=== PATIENT | female | born 1970 ===

== ENCOUNTER 2022-02-18 07:54 | Outpatient (REF) | payer OTHER, SELFPAY ==
[2022-02-18 11:33] LABS: Hematocrit 45.7 % (37.0-47.0); Hemoglobin 14.9 g/dl (12.0-16.0); Mean Corpuscular HGB Conc 32.6 g/dl (31.0-35.0); Mean Corpuscular Hemoglobin 31.3 pg (27.0-33.0); Platelet Count 318 X10*3/uL (160-400); Red Blood Count 4.76 X10*6/uL (4.20-5.50); Red Cell Distribution Width 13.7 % (11.0-16.0)
[2022-02-18 11:56] LABS: Alanine Aminotransferase 16 U/L (0-31); Albumin Level 4.2 g/dL (3.5-5.0); Alkaline Phosphatase 121 U/L (39-117); Anion Gap 15 (12-20); Aspartate Amino Transferase 12 U/L (5-31); Bilirubin Total 0.6 mg/dL (0.0-1.0); Blood Urea Nitrogen 13 mg/dL (9-16); Calcium 9.5 mg/dL (8.4-10.2); Carbon Dioxide 24 mmol/L (22-29); Chloride 107 mmol/L (96-108); Cholesterol 272 mg/dL; Estimated Glomerular Filt Rate > 60; Glucose Fasting 124 mg/dL (60-99); HDL Cholesterol 38 mg/dL; LDL Cholesterol Calculated 209 mg/dl; Potassium 4.8 mmol/L (3.3-5.1); Sodium 141 mmol/L (135-145); Total Protein 7.1 g/dL (6.5-8.0); Triglycerides 126 mg/dL
[2022-02-18 12:10] LABS: TSH reflex Free T4 1.22 uIU/mL (0.32-4.0)
== END 2022-02-18 07:55 | disposition home or self-care (01) ==
LOC: HO.WFDLDS 07:54
PROVIDERS: Visit Provider Hospitalist
DX: Z00.00 Encounter for general adult medical examination without abnormal findings (principal)
CPT/HCPCS: 36415; 80053; 80061; 84443; 85027

== ENCOUNTER 2022-07-31 07:50 | Outpatient (REF) | payer OTHER, SELFPAY ==
[2022-07-31 12:41] LABS: Cholesterol 203 mg/dL; HDL Cholesterol 39 mg/dL; LDL Cholesterol Calculated 140 mg/dl; Triglycerides 124 mg/dL
== END 2022-07-31 07:51 | disposition home or self-care (01) ==
LOC: HO.WFDLDS 07:50
PROVIDERS: Visit Provider Nurse Practitioner Family
DX: E78.00 Pure hypercholesterolemia, unspecified (principal)
CPT/HCPCS: 36415; 80061

== ENCOUNTER 2022-10-12 | Outpatient (REF) | payer OTHER, SELFPAY ==
[2022-10-12 12:13] LABS: Hematocrit 49.8 % (37.0-47.0); Mean Corpuscular HGB Conc 32.1 g/dl (31.0-35.0); Mean Corpuscular Hemoglobin 32.4 pg (27.0-33.0); Mean Corpuscular Volume 100.8 fL (80.0-98.0); Mean Platelet Volume 12.4 fL (9.4-12.3); Platelet Count 180 X10*3/uL (160-400); Red Blood Count 4.94 X10*6/uL (4.20-5.50); Red Cell Distribution Width 14.7 % (11.0-16.0); White Blood Count 11.1 X10*3/uL (4.8-10.8)
[2022-10-12 12:41] LABS: Glucose Fasting 122 mg/dL (60-99)
== END 2022-10-12 00:01 | disposition home or self-care (01) ==
LOC: HO.WFDLDS
PROVIDERS: Hospitalist; Visit Provider Nurse Practitioner Family
DX: D72.829 Elevated white blood cell count, unspecified (principal); R73.01 Impaired fasting glucose
CPT/HCPCS: 36415; 82947; 85027

== ENCOUNTER 2022-11-24 12:41 | Outpatient (AMB) | payer OTHER, SELFPAY ==
[2022-11-24 12:42] VITALS: BP 126/78; PULSE 89; O2SAT 97; BMI 33.6
--- NOTE | 2022-11-24 12:42 | A.OFFPC_ITS ---
Vital Signs 11/24/22 12:42 Height 5 ft 6 in Weight 208 lb BMI 33.6 BP 126/78 Blood Pressure Location Lt brachial Position Sitting Pulse 89 Pulse Source Pulse Oximeter Pulse Oximetry (%) 97 Oxygen Delivery Method Room Air Intake Visit Reasons: 1 mos health maintenance Intake Note: Patient is here for follow up appointment. She states follow up on labs and bronchtits. Post menopausal: Yes Allergies codeine Allergy (Mild, Verified 11/24/22 13:01) Agitated Medication List - Last Reconciled 11/24/22 by Leonel James CNP bupropion HCl (Wellbutrin SR) 150 mg PO QAM 90 days pravastatin 40 mg PO BEDTIME Tobacco use date assessed: 11/24/22 Dental Screening Dental Screen Date: 11/24/22 Did you have a dental visit in the last 12 months?: No Did you have a dental problem in the last 6 months where you did not have access to dental care?: No Was dental information given to patient?: Patient declined HPI HPI Comments History of Present Illness Details 52-year-old female presents for health maintenance follow-up She has h/o anxiety and depression. She is on Welbutrin which she notes she has been taking as prescribed She notes she established with a therapist, she started telemedicine meetings once a week for 1 month, and has transitioned to every two weeks. She notes that her anxiety and depression symptoms are currently controlled. She notes her last mammogram was a few years ago: normal. She has a mammogram She states she has never had a colonoscopy She notes her last pap smear test was 5 years ago: normal She states she has never received the shingles vaccines [facility] Medical History Eczema Gallbladder anomaly Skin cancer (melanoma) Family History Father Heart disease Hypertension Hyperlipemia No family history of mental disorder Maternal Grandmother No family history of mental disorder Pancreatic abnormality Social History Housing: House Patient Tobacco Use Status: Current everyday Tobacco user Tobacco use type: Cigarette Years Smoked: 30 years e-Cigarette/Vaping Use: Never Used service: No 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 1. Little interest or pleasure in doing things: not at all 2. Feeling down, depressed, or hopeless: not at all 3. Trouble falling or staying asleep, or sleeping too much: not at all 4. Feeling tired or having little energy: not at all 5. Poor appetite or overeating: not at all 6. Feeling bad about yourself - or that you are a failure or have let yourself or your family down: not at all 7. Trouble concentrating on things, such as reading the newspaper or watching television: not at all 8. Moving or speaking so slowly that other people could have noticed. Or the opposite - being so fidgety or restless that you have been moving around a lot more than usual: not at all 9. Thoughts that you would be better off or of hurting yourself in some way: not at all Total score: 0 Depression Screening Interpretation: Negative Source: Developed by Drs. Ponce Morejon, Lia Pathak, Lalito Vasquez and colleagues, with an educational yaritza from [employer] Thrive Questionnaire Date Thrive assessed: 05/19/22 YOLANDA-7 AMB Questionnaire YOLANDA-7 Date YOLANDA - 7 assessed: 09/11/22 Feeling nervous, anxious, or on edge: 1 = Several days Not being able to stop or control worryin = Several days Worrying too much about different things: 0 = Not at all Trouble relaxin = Not at all Being so restless that it is hard to sit still: 0 = Not at all Becoming easily annoyed or irritable: 1 = Several days Feeling afraid as if something awful might happen: 0 = Not at all Total YOLANDA-7 score (0-4 normal; 5-9 mild; 10-14 moderate; 15-21 severe): 3 Source: Developed by Drs. Ponce Morejon, Lalito Gilbert and colleagues, with an educational yaritza from [employer] Review of Systems Const Details: Const Denies chills, Denies fatigue, Denies fever(s), Denies headache(s) and Denies weakness ENT Denies dizziness and Denies headache(s) Card Denies chest pain, Denies lightheadedness, Denies dyspnea and Denies other (Palpitations) Resp Denies cough, Denies dyspnea, Denies wheezing and Denies other ( shortness of breath) GI Denies abdominal pain, Denies melena, Denies hematochezia, Denies change in bowel habits, Denies dyspepsia and Denies nausea Denies hematuria and Denies dysuria Musc Denies abnormal gait, Denies myalgias, Denies arthralgias, Denies numbness and Denies tingling Skin/Breast Denies rash, Denies unusual bruising and Denies wounds Neuro Denies abnormal gait, Denies dizziness, Denies headache(s), Denies memory loss, Denies numbness, Denies Sensory deficit (Neuro), Denies tingling and Denies weakness Psych Denies anxiety, Denies depression, Denies memory loss Endo Denies cold intolerance, Denies fatigue, Denies heat intolerance, Denies polydipsia and Denies polyuria Aller/Immun Denies wheezing Physical exam (Primary Care) Vital Signs: Last Vital Signs Pulse 89 11/24/22 12:42 BP 126/78 11/24/22 12:42 Pulse Ox 97 11/24/22 12:42 Oxygen Delivery Method Room Air 11/24/22 12:42 BMI result Body Mass Index 33.6 Tobacco/Smoking Status: Tobacco use Status Tobacco use date assessed 11/24/22 11/24/22 12:53 Patient Tobacco Use Status Current everyday Tobacco 11/24/22 12:44 Tobacco use type Cigarette 11/24/22 12:44 e-Cigarette/Vaping Use Never Used 11/24/22 12:44 PHQ-9: PHQ-9 Score PHQ-9: Total score 0 11/24/22 13:02 Depression Screening Interpretation: Negative Thrive Assessment: Date of Thrive Assessment Date Thrive assessed 05/19/22 11/24/22 12:44 Const Other: General: no acute distress and well developed Nutritional Appearance: well nourished Orientation/consciousness: patient oriented x3 HENMT Head: Yes normocephalic and Yes atraumatic Eyes General: appearance normal, both eyes and all related structures Pupils: Equal, round and reactive pupils present EOM: EOMs intact bilaterally Resp Effort & Inspection: normal respiratory effort Auscultation: clear to auscultation bilaterally Cardio Rate: regular rate Rhythm: regular rhythm Heart sounds: S1 normal heart sound present, S2 normal heart sound present, no gallops, no murmurs and no rubs GI Palpation (GI): No Abdominal aortic bruit present, Soft to palpation, nontender, No hepatosplenomegaly present and No Rebound tenderness present Auscultation: normal bowel sounds General: Yes no CVA tenderness Back/Spine/Pelvis Back: no CVA tenderness Cervical Spine: cervical ROM normal and No Cervical spine tenderness Thoracic/Lumbar Spine: thoraco-lumbar ROM normal, No pain with thoraco-lumbar ROM, No thoracic spinal tenderness and No lumbar spinal tenderness Extrem General: Yes normal to inspection, No edema and No calf tenderness Skin General: warm and dry. Normal skin color. Normal skin turgor Lesions: no lesions Rashes: no rashes Trauma: no lacerations or abrasions Wounds: no wounds Nails: normal Neuro General: patient oriented x3, gait normal and no focal neuro deficit Cranial nerves: Yes Equal, round and reactive pupils present Cognition (Neuro): normal cognition Gait exam (Neuro): Normal gait present Sensory Exam: No Sensory deficit (Neuro) Psych Appearance: grossly normal Affect: normal affect Attitude: cooperative Thought process: Normal thought process present Results AMB Hemoglobin A1c AMB Hemoglobin A1c 6.3 % Last Edit by Niya Carpio MA on 11/24/22 13:57 Results Reviewed Results Reviewed: Laboratory Last Values Hgb A1c (Clinic) 6.3 % (4.0-6.0) H 11/24/22 13:55 Assessment and Plan Assessment & Plan (1) Anxiety with depression: Code(s): F41.8 - Other specified anxiety disorders Plan: PHQ-9 and YOLANDA-7 scores are normal Continue take Wellbutrin as prescribed Continue to follow up with therapist as planned Routine exercise encouraged Follow-up in 3 months for anxiety, depression, and complete physical exam Verbalized understanding and agreed with treatment plan (2) Pre-diabetes: Code(s): R73.03 - Prediabetes Plan: Recent lab results reviewed with the patient. Recent fasting glucose is elevated and has been elevated in past. A1c today is 6.3% Healthy diet and routine exercise encouraged Dietitian/nutrition referral made Advised to get A1c blood work done before her next visit Follow-up in 3 months or return sooner with concerns or symptoms Verbalized understanding and agreed with treatment plan. (3) Hypercholesterolemia: Code(s): E78.00 - Pure hypercholesterolemia, unspecified Plan: Lipid levels have significantly improved Continue to take pravastatin as prescribed Limits foods high in saturated fat and avoid foods high trans fat Dietitian/nutrition referral made Routine exercise encouraged LP ordered. Advised to fast for at least 10-12 hours and get blood work done before next visit Verbalized understanding and agreed with treatment plan. (4) Screening for breast cancer: Code(s): Z12.39 - Encounter for other screening for malignant neoplasm of breast Plan: She notes her last mammogram was a few years ago: normal. She has a mammogram Advised to obtain contact information from the office to contact radiology to schedule her mammogram Verbalized understanding and agreed with the plan. (5) Colon cancer screening: Code(s): Z12.11 - Encounter for screening for malignant neoplasm of colon Plan: She states she has never had a colonoscopy Referred to Gastroenterology (6) Pap smear for cervical cancer screening: Code(s): Z12.4 - Encounter for screening for malignant neoplasm of cervix Plan: She notes her last pap smear test was 5 years ago: normal Gynecology referral made (7) Vaccine counseling: Code(s): Z71.85 - Encounter for immunization safety counseling Plan: She states she has never received the shingles vaccines Instructed on the importance of vaccination and encouraged to get the Shingrix vaccines Verbalized understanding and agreed with the plan. Orders: Orders Hemoglobin A1c 3 Months R73.03 - Prediabetes Lipid Panel Today E78.00 - Pure hypercholesterolemia, unspecified AMB Hemoglobin A1c Today Z13.9 - Encounter for screening, unspecified AMB Hemoglobin A1c 3 Months Z13.9 - Encounter for screening, unspecified Referrals Gastroenterology Referral Z12.11 - Encounter for screening for malignant neoplasm of colon [employer] Referral Z12.4 - Encounter for screening for malignant neoplasm of cervix Nutrition/Dietitian Referral E78.00 - Pure hypercholesterolemia, unspecified, R73.03 - Prediabetes Coding Level of Care Code Est Pt Level 4 (65818) Diagnoses Anxiety with depression F41.8 Pre-diabetes R73.03 Hypercholesterolemia E78.00 Screening for breast cancer Z12.39 Colon cancer screening Z12.11 Pap smear for cervical cancer screening Z12.4 Vaccine counseling Z71.85
== END 2022-11-24 13:41 | disposition home or self-care (01) ==
PROVIDERS: PCP Nurse Practitioner Family; Visit Provider Nurse Practitioner Family
DX: F41.8 Other specified anxiety disorders (principal); R73.03 Prediabetes; E78.00 Pure hypercholesterolemia, unspecified; Z12.39 Encounter for other screening for malignant neoplasm of breast; Z71.85 Encounter for immunization safety counseling
CPT/HCPCS: 83036; 99214

== ENCOUNTER 2023-01-12 07:50 | Outpatient (AMB) | payer OTHER, SELFPAY ==
[2023-01-12 07:52] VITALS: BP 124/76; BMI 32.9
--- NOTE | 2023-01-12 07:52 | MHC.OFFVIS ---
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 No complaints. Last Pap/HPV was few years ago, reports not available Last Mammogram was 2 weeks ago and [facility], report not available, the patient stated that the results were negative No previous screening Colonoscopy, the patient scheduled for an appointment with GI in 2 weeks ON LICENSE OF [facility] Medical History Gallbladder anomaly Skin cancer (melanoma) Eczema Surgical History Hx of dilation and curettage Hx of cholecystectomy Hx of section H/O hand surgery Family History Father Heart disease Hypertension Hyperlipemia No family history of mental disorder Maternal Grandmother No family history of mental disorder Pancreatic abnormality Social History Household Members: Spouse Housing: House Alcohol intake: current Alcohol intake frequency: holidays/special occasions only Patient Tobacco Use Status: Current everyday Tobacco user Tobacco use type: Cigarette Cigarettes Per Day: 20 Years Smoked: 30 years e-Cigarette/Vaping Use: Never Used service: No 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 Sexually active: Yes Sexual orientation: Straight/Heterosexual Gender identity: Female Cognitive needs: No Hearing needs: No Vision needs: No Female Reproductive History Menstrual Total pregnancies: 3 Full term: 3 Number of Living Children: 3 Review of Systems Const All systems reviewed & are unremarkable except as noted in HPI and below Card Reports as per HPI Resp Reports as per HPI GI Reports as per HPI and Reports no additional complaints Reports as per HPI Physical Exam Vital Signs: Last Vital Signs BP 124/76 01/12/23 07:52 BMI result Body Mass Index 32.9 Const General: cooperative, healthy appearing and comfortable Chest Chest palpation & inspection: normal inspection of the chest and normal palpation of entire chest wall Breast/axilla inspection: normal inspection of the breasts and normal inspection of the axillae Breast/axilla palpation: normal palpation of the breasts, normal palpation of the axillae and no axillary lymphadenopathy Resp Effort & Inspection: normal respiratory effort Auscultation: clear to auscultation bilaterally Percussion: percussion normal Cardio Palpation: normal PMI Rate: regular rate Rhythm: regular rhythm Heart sounds: no murmurs and no rubs Peripheral pulses: Peripheral pulses 2+ throughout GI Inspection: Yes normal to inspection Palpation (GI): Soft to palpation, nontender, no guarding, not rigid and No hepatosplenomegaly present Percussion: Yes normal to percussion Auscultation: normal bowel sounds Rectal Exam - Female: deferred General: Yes bladder normal to palpation External Female Exam: No lesion Speculum Exam - Vagina: normal appearance of the vagina, normal palpation, normal vaginal discharge and not erythematous Speculum Exam - Cervix: normal appearance of the cervix and normal palpation Bimanual exam- vagina & uterus: normal bimanual exam, normal palpation, bladder normal to palpation, consistency normal, normal palpation and enlarged Bimanual Exam- Adnexa, other: normal adnexae, no masses and no tenderness Assessment & Plan Assessment & Plan (1) Well woman exam: Code(s): Z01.419 - Encounter for gynecological examination (general) (routine) without abnormal findings Plan: Co testing done. Counseled the patient about the recommended dietary allowance of 1200 mg of Calcium & 600 IU of vitamin D. Instruction given to the patient to schedule next screening Mammogram in 01/19. The patient is scheduled with GI for screening colonoscopy in 2 week. The patient was instructed to perform monthly self-breast exams and schedule annual exam in a year. All questions answered and the patient verbalized understanding. (2) Enlarged uterus: Comment: History of myomatous uterus Code(s): N85.2 - Hypertrophy of uterus Plan: Will order pelvic ultrasound, request previous ultrasound done at [facility] to compare post ultrasounds. instructions given the patient to schedule a 2 week follow-up appointment. Orders: Orders US pelvic and transvaginal Today N85.2 - Hypertrophy of uterus Coding Level of Care Code New Pt Prev Care 40-64y(34830) Diagnoses Well woman exam Z01.419 Enlarged uterus N85.2
== END 2023-01-12 08:17 | disposition home or self-care (01) ==
PROVIDERS: PCP Nurse Practitioner Family; Visit Provider Obstetrics & Gynecology
DX: Z01.419 Encounter for gynecological examination (general) (routine) without abnormal findings (principal); N85.2 Hypertrophy of uterus
CPT/HCPCS: 99386

== ENCOUNTER 2023-01-12 07:50 | Outpatient (REF) | payer OTHER, SELFPAY ==
[2023-01-14 04:18] LABS: HPV mRNA E6/E7 rflx Not Detected (Not Detected)
== END 2023-01-12 07:51 | disposition home or self-care (01) ==
LOC: HO.LNP 07:50
PROVIDERS: PCP Nurse Practitioner Family; Visit Provider Obstetrics & Gynecology
DX: Z01.419 Encounter for gynecological examination (general) (routine) without abnormal findings (principal); N85.2 Hypertrophy of uterus; Z11.51 Encounter for screening for human papillomavirus (HPV)
CPT/HCPCS: 87624; 88142; 99386

== ENCOUNTER 2023-01-27 08:37 | Outpatient (AMB) | payer OTHER, SELFPAY ==
--- NOTE | 2023-01-27 08:27 | MHC.OFFVIS ---
Intake Vital Signs 01/27/23 08:40 Height 5 ft 6 in Weight 208 lb 8.917 oz BMI 33.7 BP 147/75 H Blood Pressure Location Lt brachial Position Sitting Pulse 92 Intake Visit Reasons: Colonoscopy Screening Intake Note: Patient presents to in office visit today as a new patient for colonoscopy screening. CC: Patient reports she has never had a colonoscopy done before. Denies having any GI symptom or concerns today. Hand Drawer In Helper Required: No Accompanied by: Self / Same As Patient Allergies codeine Allergy (Mild, Verified 02/24/23 10:25) Agitated HPI Colonoscopy Screening HPI Details 52-year-old female here for preprocedural meeting to discuss a screening colonoscopy. She is [place] Leonel [place] [facility]. 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 She has occasional CIC and RB from known hemorrhoids, and she denies any upper GI problems. There are no prior problems with anesthesia or sedation. She denies any cardiac or respiratory problems. No ID problems. There is no known FHX of CRC or polyps. [facility] Medical History Gallbladder anomaly Skin cancer (melanoma) Eczema Surgical History Hx of dilation and curettage Hx of cholecystectomy Hx of section H/O hand surgery Family History Father Heart disease Hypertension Hyperlipemia No family history of mental disorder Maternal Grandmother No family history of mental disorder Pancreatic cancer Social History Household Members: Spouse Housing: House Alcohol intake: current Alcohol intake frequency: holidays/special occasions only Patient Tobacco Use Status: Current everyday Tobacco user Tobacco use type: Cigarette Cigarette Packs Per Day: 1 Cigarettes Per Day: 20 Years Smoked: 30 years e-Cigarette/Vaping Use: Never Used service: No 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 Sexual orientation: Straight/Heterosexual Gender identity: Female Cognitive needs: No Hearing needs: No Vision needs: No Review of Systems Const Denies fatigue, Denies fever(s), Denies night sweats, Denies poor appetite and Denies weight loss ENT Reports Normal hearing present, Denies dysphagia, Denies odynophagia, Denies throat swelling and Denies tongue swelling Card Reports no additional complaints Resp Reports no additional complaints GI Denies abdominal pain, Denies melena, Denies bloating, Reports hematochezia, Reports constipation, Denies GI cramping, Denies dysphagia, Denies excessive flatus, Denies early satiety, Denies heartburn, Denies diarrhea, Denies nausea, Denies odynophagia, Denies vomiting and Denies hematemesis Skin/Breast Denies pruritus, Denies lesions, Denies rash and Denies jaundice Neuro Reports Normal hearing present and Denies Abnormal speech present Endo Denies fatigue Aller/Immun Denies throat swelling and Denies tongue swelling Physical Exam Vital Signs: Last Vital Signs Pulse 92 01/27/23 08:40 BP 147/75 H 01/27/23 08:40 BMI result Body Mass Index 33.7 Const General: cooperative, no acute distress, well developed and well groomed Nutritional Appearance: well nourished and obese Orientation/consciousness: oriented to person, oriented to place and oriented to time Limitations: No language barrier HEENT Head: Yes normocephalic and Yes atraumatic Eyes General: appearance normal, both eyes and all related structures Pupils: Equal, round and reactive pupils present Neck Neck: Yes normal visual inspection and Yes no lymphadenopathy Thyroid: Thyroid normal Resp Effort & Inspection: normal respiratory effort and able to speak in complete sentences Auscultation: clear to auscultation bilaterally Cardio Rate: regular rate Rhythm: regular rhythm Heart sounds: Normal, physiologic split S2 sound present Peripheral pulses: radial pulses present and posterior tibial pulses present GI Inspection: No distended, Yes Abdominal panniculus present, Yes obesity, Yes scar and Yes striae Palpation (GI): Soft to palpation, nontender, no guarding, not rigid and No hepatosplenomegaly present Percussion: Yes normal to percussion Auscultation: normal bowel sounds Rectal Exam - Female: deferred Abdomen image: 1. surgical scars 2. Skin General skin exam: no rashes or lesions noted, turgor normal, skin not dry, no jaundice, No spider nevi and no striae Rashes: no rashes Nails: normal Neuro General: oriented to person, oriented to place and oriented to time Cranial nerves: Yes Equal, round and reactive pupils present and Yes Normal hearing present Speech: No Abnormal speech present Extrem Other: skin graft right LE General: Yes normal to inspection, No clubbing, No cyanosis and No edema Psych Appearance: grossly normal and well kempt Mental Status: mental status grossly normal Speech and movement: Normal speech and movement present Affect: normal affect Attitude: cooperative Thought process: Normal thought process present and not confabulating Thought content: Normal thought content present Insight: Fair insight present (Psych) Judgement: Fair judgement present (Psych) Assessment & Plan Assessment & Plan (1) Pre-op examination: Code(s): Z01.818 - Encounter for other preprocedural examination Plan: This is her first colonoscopy. She has occasional CIC and RB from known hemorrhoids, and she denies any upper GI problems. There are no prior problems with anesthesia or sedation. She denies any cardiac or respiratory problems. No ID problems. There is no known FHX of CRC or polyps. Orders: Orders Colonoscopy - GI Use Only 01/27/23 Z01.818 - Encounter for other preprocedural examination Medications: New peg 3350-electrolytes 236-22.74-6.74 -5.86 gram (Golytely) until fecal effluent is clear; do not exceed a total volume of 2,000 mL 240 mL PO Q10M 4,000 mL 0RF 1 day Z12.11 - Encounter for screening for malignant neoplasm of colon Coding Level of Care Code New Pt Level 3 (16964) Diagnoses Pre-op examination Z01.818
[2023-01-27 08:40] VITALS: BP 147/75; PULSE 92; BMI 33.7
== END 2023-01-27 09:05 | disposition home or self-care (01) ==
PROVIDERS: PCP Internal Medicine; Visit Provider Nurse Practitioner
DX: Z01.818 Encounter for other preprocedural examination (principal)
CPT/HCPCS: 99203

== ENCOUNTER → 2023-01-27 08:37 | Outpatient (BNVA) | payer OTHER, SELFPAY | PROVIDERS: PCP Internal Medicine; Visit Provider Nurse Practitioner | DX: Z01.818 Encounter for other preprocedural examination (principal) | CPT/HCPCS: 99202 ==

== ENCOUNTER 2023-02-02 12:52 | Outpatient (REF) | payer OTHER, SELFPAY ==
--- NOTE | ~2023-02-02 | US_ITS ---
EXAMINATION: US PELVIS COMPLETE CLINICAL INFORMATION: Uterine hypertrophy COMPARISON: None TECHNIQUE: Transabdominal and transvaginal imaging was performed. FINDINGS: The uterus is of normal size and echogenicity measuring 8.0 x 4.7 x 5.2 cm. A regular homogeneous endometrium is identified measuring 0.4 cm. A 3.3 x 2.4 x 2.0 cm transmural myoma in the fundus with a possible submucosal component. A 3.5 x 4.2 x 3.4 cm hypoechoic solid structure in the right adnexa, unclear if this could reflect a pedunculated myoma or other primary adnexal lesion. Both ovaries are of normal size. The right measures 1.6 x 2.6 x 1.5 cm for a volume of 0.3 mL. The right ovary is remarkable for a 1.1 x 1.3 x 1.2 cm echogenic right ovarian lesion which given the presence of internal vascularity warrants further evaluation with contrast-enhanced MR pelvis. The left measures 1.9 x 2.9 x 1.6 cm for a volume of 3.5 mL and is unremarkable in appearance. There is no pelvic free fluid. US/US pelvic and transvaginal IMPRESSION: * A 4.2 cm hypoechoic solid structure in the right adnexa, unclear if this could reflect a pedunculated myoma or other primary adnexal lesion. Recommend further characterization with contrast-enhanced MR pelvis. * A 1.3 cm echogenic right ovarian lesion which given the presence of internal vascularity warrants further evaluation with contrast-enhanced MR pelvis. * A 3.3 cm transmural myoma in the fundus with a possible submucosal component. * Endometrium measures 4 mm in thickness.
== END 2023-02-02 12:53 | disposition home or self-care (01) ==
LOC: HO.US 12:52
PROVIDERS: PCP Nurse Practitioner Family; Visit Provider Obstetrics & Gynecology
DX: N85.2 Hypertrophy of uterus (principal)
CPT/HCPCS: 76830; 76856

== ENCOUNTER 2023-02-09 10:39 | Outpatient (AMB) | payer OTHER, SELFPAY ==
[2023-02-09 11:01] VITALS: BP 132/80; BMI 33.4
--- NOTE | 2023-02-09 11:01 | A.OFFVIS_ITS ---
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 Pelvic ultrasound done recently showed the following: The uterus is of normal size and echogenicity measuring 8.0 x 4.7 x 5.2 cm. A regular homogeneous endometrium is identified measuring 0.4 cm. A 3.3 x 2.4 x 2.0 cm transmural myoma in t he fundus with a possible submucosal component. A 3.5 x 4.2 x 3.4 cm hypoechoic solid structure in the right adnexa, unclear if this could reflect a pedunculated myoma or other primary adnexal lesion. Both ovaries are of normal size. The right measures 1.6 x 2.6 x 1.5 cm for a volume of 0.3 mL. The right ovary is remarkable for a 1.1 x 1.3 x 1.2 cm echogenic right ovarian lesion wh ich given the presence of internal vascularity warrants further evaluation with contrast-enhanced MR pelvis. The left measures 1.9 x 2.9 x 1.6 cm for a volume of 3.5 mL and is unremarkable in appearance. There is no pelvic free fluid PFSH Medical History Gallbladder anomaly Skin cancer (melanoma) Eczema Surgical History Hx of dilation and curettage Hx of cholecystectomy Hx of section H/O hand surgery Family History Father Heart disease Hypertension Hyperlipemia No family history of mental disorder Maternal Grandmother No family history of mental disorder Pancreatic cancer Social History Household Members: Spouse Housing: House Alcohol intake: current Alcohol intake frequency: holidays/special occasions only Patient Tobacco Use Status: Current everyday Tobacco user Tobacco use type: Cigarette Cigarettes Per Day: 20 Years Smoked: 30 years e-Cigarette/Vaping Use: Never Used service: No 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 Discussed with the patient risk of myosarcoma and symptoms that are caused by myomas including but not limited to pelvic pain, pressure symptoms, abnormal uterine bleeding. In addition discussed with the patient options of treatment for myomas including: Serial ultrasounds periodically to follow-up on the size of the myoma while targeting the treatment against fibroids related symptoms ( control pills, Mirena IUD, progesterone treatment, GnRH agonist/antagonist, uterine artery embolization or endometrial ablation) versus surgical treatment including hysterectomy a. All pros and cons, risks and benefits of all options were discussed with the patient. The patient understands that delay in surgical treatment in case of myosarcoma can affect her prognosis, after further discussion, the patient decided to think about it and get back to us next visit (2) Lesion of ovary: Code(s): N83.9 - Noninflammatory disorder of ovary, fallopian tube and broad ligament, unspecified Plan: Discussed with the patient the finding on ultrasound showing a 3.5 cm solid structure in the right adnexa, unclear if this could reflect a pedunculated myoma or other primary adnexal lesion, in addition to a 1.1 x 1.3 x1.2 cm echogenic right ovarian lesion which given the presence of internal vascularity. Discussed with patient potential differential diagnosis of the finding including but not limited to benign, malignant or premalignant ob/gyn nurse or non ob/gyn nurse conditions, in addition explained to the patient the limitation of ultrasound in order to differentiate between malignant and benign lesions. Will order pelvic MRI with and without contrast, check the results and treat accordingly. Instructed the patient to get the most recent mammogram results done a months ago at [facility] and the previous pelvic ultrasound 4 years ago done in outside facility to compare the findings specifically presence in the size of myomas . All questions answered, the patient verbalized understanding Orders: Orders MR pelvis wo/w con Today D25.9 - Leiomyoma of uterus, unspecified, N83.9 - Noninflammatory disorder of ovary, fallopian tube and broad ligament, unspecified Coding Level of Care Code Est Pt Level 3 (07325) Diagnoses Uterine myoma D25.9 Lesion of ovary N83.9
== END 2023-02-09 11:14 | disposition home or self-care (01) ==
LOC: HO.HWS 10:39
PROVIDERS: PCP Nurse Practitioner Family; Visit Provider Obstetrics & Gynecology
DX: D25.9 Leiomyoma of uterus, unspecified (principal); N83.9 Noninflammatory disorder of ovary, fallopian tube and broad ligament, unspecified
CPT/HCPCS: 99213

== ENCOUNTER → 2023-02-09 10:39 | Outpatient (BNVA) | payer OTHER, SELFPAY | PROVIDERS: PCP Nurse Practitioner Family; Visit Provider Obstetrics & Gynecology | DX: D25.9 Leiomyoma of uterus, unspecified (principal); N83.9 Noninflammatory disorder of ovary, fallopian tube and broad ligament, unspecified | CPT/HCPCS: 99212 ==

== ENCOUNTER 2023-02-24 09:58 | Outpatient (AMB) | payer OTHER, SELFPAY ==
--- NOTE | 2023-02-24 10:04 | MHC.PC.OV ---
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 Accompanied by: Self / Same As Patient Allergies codeine Allergy (Mild, Verified 02/24/23 10:25) Agitated Medication List - Last Reconciled 02/24/23 by Leonel James CNP bupropion HCl (Wellbutrin SR) 150 mg PO QAM 90 days pravastatin 40 mg PO BEDTIME Tobacco use date assessed: 11/24/22 Dental Screening Dental Screen Date: 02/24/23 Did you have a dental visit in the last 12 months?: No Did you have a dental problem in the last 6 months where you did not have access to dental care?: No Was dental information given to patient?: Yes HPI HPI Comments History of Present Illness Details 52-year-old female presents for pre diabetes, hypercholesterolemia, anxiety, and depression follow-up Her A1c in October was 6.3%. She was referred to powerhouse mechanic helper/dietitian Her lipid levels showed marked improvement in July; total cholesterol was 203, LDL was 140, HDL was 39 She admits to taking bupropion improve a statin as prescribed without adverse reactions She notes that she missed her powerhouse mechanic helper/dietitian appointment and has not rescheduled. She admits to maintaining a healthy diet and exercising on her home elliptical and bicycle 3 times weekly She offers no complaints and denies acute symptoms at this time [facility] Medical History Gallbladder anomaly Skin cancer (melanoma) Eczema Surgical History Hx of dilation and curettage Hx of cholecystectomy Hx of section H/O hand surgery Family History Father Heart disease Hypertension Hyperlipemia No family history of mental disorder Maternal Grandmother No family history of mental disorder Pancreatic cancer Social History Household Members: Spouse Housing: House Alcohol intake: current Alcohol intake frequency: holidays/special occasions only Patient Tobacco Use Status: Current everyday Tobacco user Tobacco use type: Cigarette Cigarette Packs Per Day: 1 Cigarettes Per Day: 20 Years Smoked: 30 years e-Cigarette/Vaping Use: Never Used service: No 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 1. Little interest or pleasure in doing things: more than half the days 2. Feeling down, depressed, or hopeless: not at all 3. Trouble falling or staying asleep, or sleeping too much: several days 4. Feeling tired or having little energy: not at all 5. Poor appetite or overeating: several days 6. Feeling bad about yourself - or that you are a failure or have let yourself or your family down: not at all 7. Trouble concentrating on things, such as reading the newspaper or watching television: not at all 8. Moving or speaking so slowly that other people could have noticed. Or the opposite - being so fidgety or restless that you have been moving around a lot more than usual: not at all 9. Thoughts that you would be better off or of hurting yourself in some way: not at all Total score: 4 Depression Screening Interpretation: Negative Depression Screening Done: Yes 26027 - PHQ-9 Billing: Yes Source: Developed by Drs. Ponce Morejon, Lia Pathak, Lalito Vasquez and colleagues, with an educational yaritza from [employer]. Thrive Questionnaire Date Thrive assessed: 05/19/22 YOLANDA-7 AMB Questionnaire YOLANDA-7 Date YOLANDA - 7 assessed: 02/24/23 Feeling nervous, anxious, or on edge: 1 = Several days Not being able to stop or control worryin = Several days Worrying too much about different things: 1 = Several days Trouble relaxin = Not at all Being so restless that it is hard to sit still: 0 = Not at all Becoming easily annoyed or irritable: 1 = Several days Feeling afraid as if something awful might happen: 1 = Several days Total YOLANDA-7 score (0-4 normal; 5-9 mild; 10-14 moderate; 15-21 severe): 5 Source: Developed by Drs. Ponce Morejon, Lia Pathak, Lalito Vasquez and colleagues, with an educational yaritza from [employer]. YOLANDA-7 Assessment Billing YOLANDA-7 Assessment Tool: YOLANDA-7 Assessment 72459 Review of Systems Const Details: Const Denies chills, Denies fatigue, Denies fever(s), Denies headache(s) and Denies weakness ENT Denies dizziness and Denies headache(s) Card Denies chest pain, Denies lightheadedness, Denies dyspnea and Denies other (Palpitations) Resp Denies cough, Denies dyspnea, Denies wheezing and Denies other ( shortness of breath) GI Denies abdominal pain, Denies melena, Denies hematochezia, Denies change in bowel habits, Denies dyspepsia and Denies nausea Denies hematuria and Denies dysuria Musc Denies abnormal gait, Denies myalgias, Denies arthralgias, Denies numbness and Denies tingling Skin/Breast Denies rash, Denies unusual bruising and Denies wounds Neuro Denies abnormal gait, Denies dizziness, Denies headache(s), Denies memory loss, Denies numbness, Denies Sensory deficit (Neuro), Denies tingling and Denies weakness Psych Denies anxiety, Denies depression, Denies memory loss Endo Denies cold intolerance, Denies fatigue, Denies heat intolerance, Denies polydipsia and Denies polyuria Aller/Immun Denies wheezing Physical exam (Primary Care) Vital Signs: Last Vital Signs Temp 97.4 F 02/24/23 10:06 Pulse 103 H 02/24/23 10:06 Resp 13 02/24/23 10:06 BP 124/76 02/24/23 10:06 Pulse Ox 98 02/24/23 10:06 Oxygen Delivery Method Room Air 02/24/23 10:06 BMI result Body Mass Index 33.6 Tobacco/Smoking Status: Tobacco use Status Tobacco use date assessed 11/24/22 02/24/23 10:06 Patient Tobacco Use Status Current everyday Tobacco 02/24/23 10:06 Tobacco use type Cigarette 02/24/23 10:06 e-Cigarette/Vaping Use Never Used 02/24/23 10:06 PHQ-9: PHQ-9 Score PHQ-9: Total score 4 02/24/23 10:14 Depression Screening Interpretation: Negative Thrive Assessment: Date of Thrive Assessment Date Thrive assessed 05/19/22 02/24/23 10:06 Const Other: General: no acute distress and well developed Nutritional Appearance: well nourished Orientation/consciousness: patient oriented x3 HENMT Head: Yes normocephalic and Yes atraumatic Eyes General: appearance normal, both eyes and all related structures Pupils: Equal, round and reactive pupils present EOM: EOMs intact bilaterally Resp Effort & Inspection: normal respiratory effort Auscultation: clear to auscultation bilaterally Cardio Rate: regular rate Rhythm: regular rhythm Heart sounds: S1 normal heart sound present, S2 normal heart sound present, no gallops, no murmurs and no rubs GI Palpation (GI): No Abdominal aortic bruit present, Soft to palpation, nontender, No hepatosplenomegaly present and No Rebound tenderness present Auscultation: normal bowel sounds General: Yes no CVA tenderness Back/Spine/Pelvis Back: no CVA tenderness Cervical Spine: cervical ROM normal and No Cervical spine tenderness Thoracic/Lumbar Spine: thoraco-lumbar ROM normal, No pain with thoraco-lumbar ROM, No thoracic spinal tenderness and No lumbar spinal tenderness Extrem General: Yes normal to inspection, No edema and No calf tenderness Skin General: warm and dry. Normal skin color. Normal skin turgor Lesions: no lesions Rashes: no rashes Trauma: no lacerations or abrasions Wounds: no wounds Nails: normal Neuro General: patient oriented x3, gait normal and no focal neuro deficit Cranial nerves: Yes Equal, round and reactive pupils present Cognition (Neuro): normal cognition Gait exam (Neuro): Normal gait present Sensory Exam: No Sensory deficit (Neuro) Psych Appearance: grossly normal Affect: normal affect Attitude: cooperative Thought process: Normal thought process present Results AMB Hemoglobin A1c AMB Hemoglobin A1c 6.2 % Last Edit by Niya Carpio MA on 02/24/23 10:33 Assessment and Plan Assessment & Plan (1) Pre-diabetes: Code(s): R73.03 - Prediabetes Plan: A1c 6.2% today, indicates prediabetes. Previous A1c was 6.3% Healthy diet and routine exercise encouraged Encourage to rescheduled with powerhouse mechanic helper/dietitian Will recheck A1c in 3 months Follow-up in 1 months for an extended physical exam. Will check CMP since her current CMP is over a year old Verbalized understanding and agreed with treatment plan (2) Hypercholesterolemia: Code(s): E78.00 - Pure hypercholesterolemia, unspecified Plan: Lipid levels showed marked improvement in July; total cholesterol was 203, LDL was 140, HDL was 39 She did not get fasting blood work done for repeat lipid panel Advised to get blood work done before next visit Continue current treatment regimen Verbalized understanding and agreed with treatment plan (3) Anxiety with depression: Code(s): F41.8 - Other specified anxiety disorders Plan: She reports controlled anxiety and depression symptoms YOLANDA-7 score revealed mild anxiety. PHQ-9 score is normal Continue current treatment regimen Return with worsening or new symptoms Verbalized understanding and agreed with treatment plan Orders: Orders Comprehensive Fred. Panel Fast Today Z00.00 - Encounter for general adult medical examination without abnormal findings Coding Level of Care Code Est Pt Level 3 (75109) Diagnoses Pre-diabetes R73.03 Hypercholesterolemia E78.00 Anxiety with depression F41.8 Additional Codes YOLANDA-7 Assessment Billing - YOLANDA-7 Assessment Tool: YOLANDA-7 Assessment 88470 ([id number])
[2023-02-24 10:06] VITALS: BP 124/76; PULSE 103; RESP 13; TEMP 36.3; O2SAT 98; BMI 33.6
== END 2023-02-24 10:43 | disposition home or self-care (01) ==
PROVIDERS: PCP Nurse Practitioner Family; Visit Provider Nurse Practitioner Family
DX: R73.03 Prediabetes (principal); E78.00 Pure hypercholesterolemia, unspecified; F41.8 Other specified anxiety disorders
CPT/HCPCS: 83036; 99213

== ENCOUNTER 2023-03-31 09:29 | Outpatient (REF) | payer OTHER, SELFPAY ==
--- NOTE | ~2023-03-31 | MR_ITS ---
EXAMINATION: MR PELVIS WITHOUT AND WITH CONTRAST CLINICAL INFORMATION: Right adnexal mass lesion, right ovarian echogenic lesion found on pelvic ultrasound examination COMPARISON: Ultrasound examination of pelvis on 02/02/2023 TECHNIQUE: Examination was performed in a high field strength MRI scanner. Pre-contrast multiplanar multisequence MR imaging of the pelvis was performed without IV contrast enhancement. Post-contrast axial T1 weighted fat suppressed images of the pelvis were obtained after IV injection of 10 mL Gadavist. FINDINGS: Uterus is anteverted with normal endometrial stripe. T2 hyperintense nabothian cysts are seen in the uterine cervix, measuring up to 0.8 cm in diameter. Right anterior uterine fundal T2 hypointense hypoenhancing leiomyoma is seen measuring 2.5 cm in AP diameter, 2.1 cm in width, 2.9 cm in vertical height. Bilateral ovaries are normal in size, without focal lesion. Right ovary contains several tiny normal follicles. No adnexal mass lesion could be identified. Urinary bladder is well filled with urine. Pelvic fat plane is clean. No pelvic ascites is seen. No abnormally enlarged iliac or inguinal lymph nodes are found. The pelvis and bilateral hips are intact. Bilateral femoral heads and necks show normal signal without focal lesion. No abnormal joint effusion can be seen. The visualized bony pelvis show normal signal. Bilateral sacroiliac joints also appear unremarkable. A T2 hyperintense lesion is seen in lateral left hepatic lobe possibly segment 3 measuring 2.0 x 1.6 cm in size. The lesion was not included in the [id number] on postcontrast images. MR/MR pelvis wo/w con IMPRESSION: 1. 2.9 cm right anterior uterine fundal leiomyoma. 2. Normal appearance of the right ovary. No adnexal mass lesion could be identified. 3. Incidental note is made of a 2 cm T2 hyperintense lesion in the lateral left hepatic lobe, possibly segment 3, incompletely characterized on this exam. This could be further evaluated with abdominal ultrasound.
== END 2023-03-31 09:30 | disposition home or self-care (01) ==
LOC: HO.MRI 09:29
PROVIDERS: PCP Nurse Practitioner Family; Visit Provider Obstetrics & Gynecology
DX: N83.9 Noninflammatory disorder of ovary, fallopian tube and broad ligament, unspecified (principal); D25.9 Leiomyoma of uterus, unspecified
CPT/HCPCS: 72197; A9585

== ENCOUNTER 2023-04-08 10:15 | Outpatient (AMB) | payer OTHER, SELFPAY ==
--- NOTE | 2023-04-08 10:21 | A.OFFVIS_ITS ---
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 Pelvic ultrasound on 02/18 showed the following: IMPRESSION: * A 4.2 cm hypoechoic solid structure in the right adnexa, unclear if this could reflect a pedunculated myoma or other primary adnexal lesion. Recommend further characterization with contrast-enhanced MR pelvis. * A 1.3 cm echogenic right ovarian lesion which given the presence of internal vascularity warrants further evaluation with contrast-enhanced MR pelvis. * A 3.3 cm transmural myoma in the fundus with a possible submucosal component. * Endometrium measures 4 mm in thickness. Pelvic MRI on 03/31/23 showed the followin. 2.9 cm right anterior uterine fundal leiomyoma. 2. Normal appearance of the right ovary . No adnexal mass lesion could be identified. 3. Incidental note is made of a 2 cm T2 hyperintense lesion in the lateral left hepatic lobe, possibly segment 3, incompletely characterized on this exam. This could be further evaluated with abdominal ultrasound. PFSH Medical History Gallbladder anomaly Skin cancer (melanoma) Eczema Surgical History Hx of dilation and curettage Hx of cholecystectomy Hx of section H/O hand surgery Family History Father Heart disease Hypertension Hyperlipemia No family history of mental disorder Maternal Grandmother No family history of mental disorder Pancreatic cancer Social History Household Members: Spouse Housing: House Alcohol intake: current Alcohol intake frequency: holidays/special occasions only Patient Tobacco Use Status: Current everyday Tobacco user Tobacco use type: Cigarette Cigarette Packs Per Day: 1 Cigarettes Per Day: 20 Years Smoked: 30 years e-Cigarette/Vaping Use: Never Used service: No 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 Sexual orientation: Straight/Heterosexual Gender identity: Female Cognitive needs: No Hearing needs: No Vision needs: No Review of Systems Const All systems reviewed & are unremarkable except as noted in HPI and below Reports as per HPI and Reports no additional complaints GI Reports no additional complaints Reports no additional complaints Assessment & Plan Assessment & Plan (1) Uterine myoma: Code(s): D25.9 - Leiomyoma of uterus, unspecified Plan: Discussed with the patient the findings on pelvic ultrasound & the risk of myosarcoma; discussed with the patient the options of treatment including expectant management versus hysterectomy; the pros and cons, risks benefits of each approach were discussed with the patient including the fact that in cases of myosarcoma, surgical treatment can lead to early diagnosis and positively affects the prognosis; after further discussion, the patient decided to proceed with expectant management. Will repeat pelvic ultrasound in 6 month. Instruc tions given to patient to call in case any of the following occurs: pressure symptoms, abnormal uterine bleeding, pelvic pain; and to schedule a future 6 my office follow-up appointment for follow-up pelvic ultrasound . All questions answered, the patient verbalized understanding and agreed with the plan . (2) Hepatic lesion: Code(s): K76.9 - Liver disease, unspecified Plan: Discussed the patient the finding on MRI showing hepatic lesion, recommended to the patient to contact her PCP for further management. Orders: Orders US pelvic and transvaginal 6 Months D25.9 - Leiomyoma of uterus, unspecified Coding Level of Care Code Est Pt Level 3 (87825) Diagnoses Uterine myoma D25.9 Hepatic lesion K76.9
[2023-04-08 10:23] VITALS: BP 124/82; BMI 33.4
== END 2023-04-08 10:36 | disposition home or self-care (01) ==
LOC: HO.HWS 10:15
PROVIDERS: PCP Nurse Practitioner Family; Visit Provider Obstetrics & Gynecology
DX: D25.9 Leiomyoma of uterus, unspecified (principal); K76.9 Liver disease, unspecified
CPT/HCPCS: 99213

== ENCOUNTER → 2023-04-08 10:15 | Outpatient (BNVA) | payer OTHER, SELFPAY | PROVIDERS: PCP Nurse Practitioner Family; Visit Provider Obstetrics & Gynecology | DX: K76.9 Liver disease, unspecified (principal); D25.9 Leiomyoma of uterus, unspecified | CPT/HCPCS: 99212 ==

== ENCOUNTER 2023-07-22 06:21 | Day surgery (SDC) | payer OTHER, SELFPAY ==
--- NOTE | 2023-07-21 09:55 | HO.ANESPROP2 ---
Documented by User: Rakel Peraza NP 07/21/23 09:55 HPI - Anesthesia Eval Consult details Narrative: 53yo F for Colonoscopy PMFSH Active Problems Active Problems: All Active Problems Hepatic lesion (Acute) Laboratory tests ordered as part of a complete physical exam (CPE) (Acute) Lesion of ovary (Acute) Uterine myoma (Acute) Pre-op examination (Acute) Enlarged uterus (Acute) Well woman exam (Acute) Pre-diabetes (Acute) Vaccine counseling (Acute) Pap smear for cervical cancer screening (Acute) Colon cancer screening (Acute) Wheezing (Acute) Bronchitis (Acute) Anxiety with depression (Acute) Elevated fasting glucose (Acute) Hypercholesterolemia (Acute) Right wrist pain (Acute) Leukocytosis (Acute) BMI 33.0-33.9,adult (Acute) Elevated BP without diagnosis of hypertension (Acute) Screening for breast cancer (Acute) History of skin cancer (Acute) Normal physical exam (Acute) Past Medical History Medical History Bronchitis Elevated cholesterol Anxiety with depression Pre-diabetes Gallbladder anomaly Skin cancer (melanoma) Eczema Family History Family History Father Heart disease Hypertension Hyperlipemia No family history of mental disorder Maternal Grandmother No family history of mental disorder Pancreatic cancer Surgical History Surgical History Hx of dilation and curettage Hx of cholecystectomy Hx of section H/O hand surgery Social History Social History Household Members: Spouse Housing: House Alcohol intake: current Alcohol intake frequency: does not drink Patient Tobacco Use Status: Former Tobacco user Tobacco use type: Cigarette Cigarette Packs Per Day: 1 Cigarettes Per Day: 20.0 Years Smoked: 30 e-Cigarette/Vaping Use: Never Used Use of substances other than those prescribed or required for medical reasons: Unknown Are you DNR?: No Advance Directives: No Advance Directives Information Provided: Yes Advance Directives on File: No Recently lost weight without trying: No service: No 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 Sexual orientation: Straight/Heterosexual Gender identity: Female Cognitive needs: No Hearing needs: No Vision needs: No Meds Allergies Allergy/AdvReac Type Severity Reaction Status Date / Time codeine Allergy Mild Agitated Verified 04/08/23 10:23 Exam Height,Weight and Vital Signs: Height 5 ft 6 in Assessment and Plan Assessment Anesthesia Assessment: Chart Reviewed Documented by User: Nathalia Mcintyre MD 07/22/23 07:47 PMFSH Past Medical History Medical History Bronchitis Elevated cholesterol Anxiety with depression Pre-diabetes Gallbladder anomaly Skin cancer (melanoma) Eczema Functional capacity: independent ambulation Family History Family History Father Heart disease Hypertension Hyperlipemia No family history of mental disorder Maternal Grandmother No family history of mental disorder Pancreatic cancer Family history of problems with anesthesia: No Surgical History Surgical History Hx of dilation and curettage Hx of cholecystectomy Hx of section H/O hand surgery History of Problems with Anesthesia: No Social History Social History Household Members: Spouse Housing: House Alcohol intake: current Alcohol intake frequency: does not drink Patient Tobacco Use Status: Former Tobacco user Tobacco use type: Cigarette Cigarette Packs Per Day: 1 Cigarettes Per Day: 20.0 Years Smoked: 30 e-Cigarette/Vaping Use: Never Used Use of substances other than those prescribed or required for medical reasons: Unknown Are you DNR?: No Advance Directives: No Advance Directives Information Provided: Yes Advance Directives on File: No Recently lost weight without trying: No service: No 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 Sexual orientation: Straight/Heterosexual Gender identity: Female Cognitive needs: No Hearing needs: No Vision needs: No Meds Allergies Allergy/AdvReac Type Severity Reaction Status Date / Time codeine Allergy Mild Agitated Verified 04/08/23 10:23 Exam Airway Mallampati Class: III TM Dist: >3cm Neck ROM: Full Heart: RRR Lungs: CTA Assessment and Plan Final Anesthetic Review Family History of Problems with Anesthesia: No History of Problems with Anesthesia: No ASA Class: III Final Preanesthetic Review: Meds/Allgs Chart Reviewed, Consent Obtained/Reviewed and Anes Risks/Benef Reviewed Patient Risk: Low Procedure Risk: Low Anesthetic Plan Anesthetic Plan: MAC: Disposition: Standard PACU
--- NOTE | 2023-07-22 06:17 | MHC.SHP ---
Pre-Procedural Eval Section A - 24 Hr Update-Section A only Date of Service: 07/22/23 Section B - Complete if H&P > 30 days Chief Complaint: Encounter for screening for malignant neoplasm of Relevant Family History (Specify if Yes): No Relevant Social History: Tobacco Use Present Medications: see Short Stay Collaborative assessment Medical History: Significant History (Bronchitis Elevated cholesterol Anxiety with depression Pre-diabetes Gallbladder anomaly Skin cancer (melanoma) Eczema) History of Previous Operations: Relevant previous surgery/procedure and date(s) ( Hx of dilation and curettage Hx of cholecystectomy Hx of section H/O hand surgery) Allergies: Allergies Allergy/AdvReac Type Severity Reaction Status Date / Time codeine Allergy Mild Agitated Verified 04/08/23 10:23 Review of Systems Sugical H&P ROS: Negative: Constitution, Cardiovascular, Respiratory, Neurological, Psychiatric, Hem-Onc, Allergic/Immunologic, Gastrointestinal, Genitourinary, Musculoskeletal, Integumentary, Endocrine and Eyes/Ears/Nose/Throat Exam Surgical H&P Exam: Normal: HEENT, Normal: Heart, Normal: Lungs, Normal: Extremities, Normal: Abdomen, Normal: Skin and Normal: Neurological Plan Diagnosis/Plan: Unchanged I have reviewed the history and physical and performed a pertinent physical examination on my patient. No changes have occurred unless specified. Time Spent With Patient Time: Total time managing care of this patient today ____ minutes.
[2023-07-22 06:41] VITALS: BP 166/71; PULSE 89; RESP 18; TEMP 36.6; O2SAT 97; BMI 35.2
[2023-07-22] MEDS: Lactated Ringers 1,000 ML 100 ML IVCONT (06:53)
--- NOTE | 2023-07-22 07:32 | W.PM.OPN ---
Operative Note Operative Note Date of Service: 07/22/23 Narrative: Operative Information Procedure Description: Colonoscopy Indication: screening Anesthesia: MAC COLONOSCOPY Instrument: Olympus variable stiffness pediatric scope 190L Colonoscopy Monitoring: Vital signs and clinical assessment, continuous EKG monitoring, Pulse oximetry, Carbon Dioxide monitoring and blood pressure monitoring were done throughout the procedure. Colon withdrawal time was 11 minutes. Procedure: The patient was placed in the left lateral decubitis position and pre-procedure medications were administered. After a digital rectal examination of the ano-rectum, the video colonoscope was inserted into the rectum and advanced through the colon to the cecum/TI. The colonoscope was slowly withdrawn in a retrograde panoramic fashion and the colon mucosa was carefully examined including a retroflexed view of the rectum. Findings and interventions are described below. Procedure Difficulty: moderate Findings: Terminal Ileum-not intubated Cecum: 4-6 mm sessile polyp removed with cold forceps Ascending Colon: normal Transverse Colon - 8-10 mm sessile polyp removed with cold snare Descending Colon:normal Sigmoid Colon: moderate diverticulosis, 5-7 mm sessile polyp removed with cold snare Rectum: Retroflexion with small internal hemorrhoids seen, grade I Anorectum - normal Intervention: cold snare, cold forceps Colon preparation: [place] Bowel Preparation Scale Right colon; 1-2 Transverse colon: 1-2 Left colon; 1-2 (0 = Unprepared colon segment with mucosa not seen due to solid stool that cannot be cleared. 1 = Portion of mucosa of the colon segment seen, but other areas of the colon segment not well seen due to staining, residual stool and/or opaque liquid. 2 = Minor amount of residual staining, small fragments of stool and/or opaque liquid, but mucosa of colon segment seen well. 3 = Entire mucosa of colon segment seen well with no residual staining, small fragments of stool or opaque liquid) Impression and Post Procedure Diagnosis: diverticulosis colon polyps internal hemorrhoids Plan: High fiber diet leaflet Avoid straining at stool, epsom salts and sitz bath, anusol supps or cream Repeat Colonoscopy in 1 year due to fair to poor prep in certain areas or earlier if clinically indicated Above findings were reviewed with the patient and relevant handouts were provided if indicated.
--- NOTE | 2023-07-22 07:47 | P.CONAN_ITS ---
[facility] Active Problems Active Problems: All Active Problems Hepatic lesion (Acute) Laboratory tests ordered as part of a complete physical exam (CPE) (Acute) Lesion of ovary (Acute) Uterine myoma (Acute) Pre-op examination (Acute) Enlarged uterus (Acute) Well woman exam (Acute) Pre-diabetes (Acute) Vaccine counseling (Acute) Pap smear for cervical cancer screening (Acute) Colon cancer screening (Acute) Wheezing (Acute) Bronchitis (Acute) Anxiety with depression (Acute) Elevated fasting glucose (Acute) Hypercholesterolemia (Acute) Right wrist pain (Acute) Leukocytosis (Acute) BMI 33.0-33.9,adult (Acute) Elevated BP without diagnosis of hypertension (Acute) Screening for breast cancer (Acute) History of skin cancer (Acute) Normal physical exam (Acute) Past Medical History Medical History Bronchitis Elevated cholesterol Anxiety with depression Pre-diabetes Gallbladder anomaly Skin cancer (melanoma) Eczema Functional capacity: independent ambulation Family History Family History Father Heart disease Hypertension Hyperlipemia No family history of mental disorder Maternal Grandmother No family history of mental disorder Pancreatic cancer Family history of problems with anesthesia: No Surgical History Surgical History Hx of dilation and curettage Hx of cholecystectomy Hx of section H/O hand surgery History of Problems with Anesthesia: No Social History Social History Household Members: Spouse Housing: House Alcohol intake: current Alcohol intake frequency: does not drink Patient Tobacco Use Status: Former Tobacco user Tobacco use type: Cigarette Cigarette Packs Per Day: 1 Cigarettes Per Day: 20.0 Years Smoked: 30 e-Cigarette/Vaping Use: Never Used Use of substances other than those prescribed or required for medical reasons: Unknown Are you DNR?: No Advance Directives: No Advance Directives Information Provided: Yes Advance Directives on File: No Recently lost weight without trying: No service: No 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 Sexual orientation: Straight/Heterosexual Gender identity: Female Cognitive needs: No Hearing needs: No Vision needs: No Meds Allergies Allergy/AdvReac Type Severity Reaction Status Date / Time codeine Allergy Mild Agitated Verified 04/08/23 10:23 Active Medications: Current Medications Lactated Ringer's (Lr) 1,000 mls @ 100 mls/hr IVCONT .Q10H PUNEET Last Admin: 07/22/23 06:53 Dose: 100 mls/hr Exam Height,Weight and Vital Signs: Height 5 ft 6 in Weight 98.883 kg Last Vital Signs Temp 98 F 07/22/23 06:41 Pulse 89 07/22/23 06:41 Resp 18 07/22/23 06:41 BP 166/71 H 07/22/23 06:41 Pulse Ox 97 07/22/23 06:41 O2 Del Method Room Air 07/22/23 06:41 Airway Mallampati Class: III TM Dist: >3cm Neck ROM: Full Heart: RRR Lungs: CTA Assessment and Plan Assessment Anesthesia Assessment: Anesthesia Plan Discussed Final Anesthetic Review Family History of Problems with Anesthesia: No History of Problems with Anesthesia: No ASA Class: II Final Preanesthetic Review: Meds/Allgs Chart Reviewed, Consent Obtained/Reviewed and Anes Risks/Benef Reviewed Patient Risk: Low Procedure Risk: Low Anesthetic Plan Anesthetic Plan: MAC: Disposition: Standard PACU
[2023-07-22 08:07] VITALS: BP 132/61; PULSE 80; RESP 16; TEMP 36.1; O2SAT 97
[2023-07-22 08:27] VITALS: BP 146/72; PULSE 74; RESP 20; TEMP 36.6; O2SAT 99
--- NOTE | 2023-07-22 10:30 | HO.POSTANES ---
Post Anesthesia Evaluation Post Anesthesia Evaluation Date of Service: 07/22/23 Vital Signs: Vital Signs Temp Pulse Resp BP Pulse Ox O2 Del Method 07/22/23 08:27 97.8 F 74 20 146/72 H 99 Room Air 07/22/23 08:07 97 F 80 16 132/61 97 Room Air 07/22/23 06:41 98 F 89 18 166/71 H 97 Room Air Anesthesia: Monitored Mental Status: Awake Pain Control: Satisfactory Nausea/Vomiting: None Hydration: Adequate Anesthesia-Related Issues: No Anes. Related Issues
== END 2023-07-22 08:46 | disposition home or self-care (01) ==
PROVIDERS: PCP Nurse Practitioner Family; Visit Provider Internal Medicine Gastroenterology
PROC: 0DJD8ZZ Inspection of Lower Intestinal Tract, Via Natural or Artificial Opening Endoscopic (ICD-10-PCS; CPT 45378; principal; 2023-07-22 07:30)
DX: Z12.11 Encounter for screening for malignant neoplasm of colon (principal); D12.0 Benign neoplasm of cecum; D12.3 Benign neoplasm of transverse colon; K63.5 Polyp of colon; K57.30 Diverticulosis of large intestine without perforation or abscess without bleeding; K64.0 First degree hemorrhoids; E78.00 Pure hypercholesterolemia, unspecified; R73.03 Prediabetes; C43.9 Malignant melanoma of skin, unspecified; F41.8 Other specified anxiety disorders; Q44.1 Other congenital malformations of gallbladder; L30.9 Dermatitis, unspecified; J40 Bronchitis, not specified as acute or chronic; Z88.5 Allergy status to narcotic agent; Z87.891 Personal history of nicotine dependence; Z90.49 Acquired absence of other specified parts of digestive tract
CPT/HCPCS: 45385; 45380; 88305; J2704

== ENCOUNTER → 2023-07-22 06:21 | Outpatient (BNV) | payer OTHER, SELFPAY | PROVIDERS: PCP Nurse Practitioner Family; Visit Provider Internal Medicine Gastroenterology | DX: Z12.11 Encounter for screening for malignant neoplasm of colon (principal); D12.0 Benign neoplasm of cecum; K63.5 Polyp of colon; K57.30 Diverticulosis of large intestine without perforation or abscess without bleeding; K64.0 First degree hemorrhoids | CPT/HCPCS: 45380; 45385 ==

== ENCOUNTER 2023-08-31 15:36 | Outpatient (AMB) | payer OTHER, SELFPAY ==
[2023-08-31 15:51] VITALS: BP 142/78; PULSE 103; RESP 14; TEMP 36.6; O2SAT 99; BMI 34.3
--- NOTE | 2023-08-31 15:51 | MHC.PC.OV ---
Vital Signs 08/31/23 15:51 08/31/23 16:15 Height 5 ft 6 in Weight 212 lb 4 oz BMI 34.3 BP 142/78 H 130/84 Blood Pressure Location Rt brachial Rt brachial Position Sitting Sitting Respiration 14 Pulse 103 H Pulse Source Pulse Oximeter Temp 97.8 F Temp Source Temporal Artery Scan Pulse Oximetry (%) 99 Oxygen Delivery Method Room Air Intake Visit Reasons: Physical Exam Chemistry Tutor Required: No Accompanied by: Self / Same As Patient Allergies codeine Allergy (Mild, Verified 09/03/23 08:20) Agitated Medication List - Last Reconciled 08/31/23 by Leonel James CNP bupropion HCl SR (Wellbutrin SR) 150 mg PO QAM 90 days pravastatin 40 mg PO BEDTIME Tobacco use date assessed: 08/31/23 Dental Screening Dental Screen Date: 08/31/23 Did you have a dental visit in the last 12 months?: No Did you have a dental problem in the last 6 months where you did not have access to dental care?: No Was dental information given to patient?: Yes HPI HPI Comments History of Present Illness Details 53-year-old female presents for an extended physical exam She has history of pre diabetes, hypercholesterolemia, anxiety, and depression She admits to taking bupropion and pravastatin as prescribed without adverse reactions She notes that she generally eats healthy. She notes that she not been able to exercise due to clicking sound and cramps in the right hip with prolonged walking. Her symptoms have been ongoing for at least 2 years She offers no complaints and denies acute symptoms at this time Last pap smear test was on 01/12/2023: normal Last colonoscopy was with [facility] on 06/2023: Hyperplastic polyp, tubular adenoma Last mammogram was on 12/22/2022: normal She smokes 1 pack cigarette daily and has been smoking for the past 30 years She does not drink alcohol. No recreational drug use She has not been vaccinated for shingles [facility] Medical History (Updated 09/03/23 @ 08:45 by FACUNDO Briones) Bronchitis Elevated cholesterol Anxiety with depression Pre-diabetes Gallbladder anomaly Skin cancer (melanoma) Eczema Surgical History (Updated 09/03/23 @ 08:23 by Gemini Alvarado) Hx of colonoscopy Hx of dilation and curettage Hx of cholecystectomy Hx of section H/O hand surgery Family History Father Heart disease Hypertension Hyperlipemia No family history of mental disorder Maternal Grandmother No family history of mental disorder Pancreatic cancer Social History Household Members: Spouse Housing: House Alcohol intake: current Alcohol intake frequency: does not drink Patient Tobacco Use Status: Current everyday Tobacco user Tobacco use type: Cigarette Cigarette Packs Per Day: 1 Cigarettes Per Day: 20.0 Years Smoked: 30 e-Cigarette/Vaping Use: Never Used service: No 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 1. Little interest or pleasure in doing things: not at all 2. Feeling down, depressed, or hopeless: not at all 3. Trouble falling or staying asleep, or sleeping too much: not at all 4. Feeling tired or having little energy: not at all 5. Poor appetite or overeating: not at all 6. Feeling bad about yourself - or that you are a failure or have let yourself or your family down: not at all 7. Trouble concentrating on things, such as reading the newspaper or watching television: not at all 8. Moving or speaking so slowly that other people could have noticed. Or the opposite - being so fidgety or restless that you have been moving around a lot more than usual: not at all 9. Thoughts that you would be better off or of hurting yourself in some way: not at all Total score: 0 Depression Screening Interpretation: Negative Depression Screening Done: Yes [id number] - PHQ-9 Billing: Yes Source: Developed by Drs. Ponce Morejon, Lia Pathak, Lalito Vasquez and colleagues, with an educational yaritza from [employer]. Thrive Questionnaire Date Thrive assessed: 08/31/23 I am a: Patient What is your living situation today?: I have a steady place to live Within the past 12 months, did the food you bought not last and you didn't have the money to get more?: Never true Within the past 12 months, did you worry whether your food would run out before you got money to buy more?: Never true Do you have trouble paying for medicines?: No Do you have trouble getting transportation to medical appointments?: No Do you have trouble paying your heating and electricity bill?: No Do you have trouble taking care of your child, family member or friend?: No Do you have trouble with day-to-day activities such as bathing, preparing meals, shopping, managing finances, etc.?: No Are you currently unemployed and looking for a job?: No Are you interested in more education?: No Please select the resources that you would like help with: None Currently or been in a relationship where the following occur: no concerns reported THRIVE Score: 0 AUDIT C Alcohol Use Questionnaire (AUDIT-C) 1. How often do you have a drink containing alcohol?: Never 3. How often do you have six or more drinks on one occasion?: Never Total Score: 0 YOLANDA-7 AMB Questionnaire YOLANDA-7 Date YOLANDA - 7 assessed: 08/31/23 Feeling nervous, anxious, or on edge: 0 = Not at all Not being able to stop or control worryin = Not at all Worrying too much about different things: 0 = Not at all Trouble relaxin = Not at all Being so restless that it is hard to sit still: 0 = Not at all Becoming easily annoyed or irritable: 0 = Not at all Feeling afraid as if something awful might happen: 0 = Not at all Total YOLANDA-7 score (0-4 normal; 5-9 mild; 10-14 moderate; 15-21 severe): 0 Source: Developed by Drs. Ponce Morejon, Lia Pathak, Lalito Vasquez and colleagues, with an educational yaritza from [employer]. YOLANDA-7 Assessment Billing YOLANDA-7 Assessment Tool: YOLANDA-7 Assessment [id number] Review of Systems Const Details: Denies chills, Denies fatigue, Denies fever(s), Denies headache(s) and Denies weakness HEENT Denies change in vision, Denies dizziness, Denies headache(s), Denies hearing loss, Denies nasal congestion, Denies sinus pain, Denies sinus pressure and Denies sore throat Card Denies chest pain, Denies lightheadedness, Denies dyspnea and Denies other (palpitations) Resp Denies cough, Denies dyspnea and Denies wheezing GI Denies abdominal pain, Denies melena, Denies hematochezia, Denies change in bowel habits, Denies dyspepsia and Denies nausea Denies hematuria and Denies dysuria Musc Denies abnormal gait, Denies myalgias, Denies arthralgias, Denies numbness and Denies tingling Skin/Breast Denies rash, Denies unusual bruising and Denies wounds Neuro Denies abnormal gait, Denies dizziness, Denies headache(s), Denies memory loss, Denies numbness, Denies Sensory deficit (Neuro), Denies tingling and Denies weakness Psych Denies anxiety, Denies depression and Denies memory loss Endo Denies cold intolerance, Denies fatigue, Denies heat intolerance, Denies polydipsia and Denies polyuria Todd/Lymph Denies easy bleeding and Denies easy bruising Aller/Immun Denies wheezing Physical exam (Primary Care) Vital Signs: Last Vital Signs Temp 97.8 F 08/31/23 15:51 Pulse 103 H 08/31/23 15:51 Resp 14 08/31/23 15:51 BP 130/84 08/31/23 16:15 Pulse Ox 99 08/31/23 15:51 Oxygen Delivery Method Room Air 08/31/23 15:51 BMI result Body Mass Index 34.3 Tobacco/Smoking Status: Tobacco use Status Tobacco use date assessed 08/31/23 08/31/23 15:58 Patient Tobacco Use Status Current everyday Tobacco 08/31/23 15:58 Tobacco use type Cigarette 08/31/23 15:58 e-Cigarette/Vaping Use Never Used 08/31/23 15:58 PHQ-9: PHQ-9 Score PHQ-9: Total score 0 08/31/23 16:13 Depression Screening Interpretation: Negative Thrive Assessment: Date of Thrive Assessment Date Thrive assessed 08/31/23 08/31/23 15:58 Currently or been in a relationship where the following occur: no concerns reported Const Other: General: no acute distress, well developed, alert and awake Nutritional Appearance: well nourished Orientation/consciousness: patient oriented x3 HENMT Head: Yes normocephalic and Yes atraumatic Ears: hearing grossly normal bilaterally and TM's normal bilaterally General nose exam: Normal external nose present and Normal nares present Mouth: Normal oral and palatal mucosa present and moist mucous membranes Teeth and gingiva: dentition normal Throat: Yes oropharynx normal Eyes Pupils: Equal, round and reactive pupils present and Pupil accommodation reflex normal EOM: EOMs intact bilaterally Neck Neck: Yes normal visual inspection, Yes no lymphadenopathy and Yes trachea midline Thyroid: Thyroid normal Carotids: no bruits Lymphatic: no lymphadenopathy noted Chest Chest palpation & inspection: normal inspection of the chest Resp Effort & Inspection: normal respiratory effort Auscultation: clear to auscultation bilaterally Cardio Rate: regular rate Rhythm: regular rhythm Heart sounds: S1 normal heart sound present, S2 normal heart sound present, no gallops, systolic murmur and no rubs Bruits: no abdominal aortic bruits and no carotid bruits GI Palpation (GI): No Abdominal aortic bruit present, Soft to palpation, nontender, No hepatosplenomegaly present and No Rebound tenderness present Auscultation: normal bowel sounds General: Yes no CVA tenderness Back/Spine/Pelvis Back: no CVA tenderness Cervical Spine: cervical ROM normal and No Cervical spine tenderness Thoracic/Lumbar Spine: thoraco-lumbar ROM normal, No pain with thoraco-lumbar ROM, No thoracic spinal tenderness and No lumbar spinal tenderness Skin General: warm and dry. Normal skin color. Normal skin turgor Lesions: no lesions Rashes: no rashes Trauma: no lacerations or abrasions Wounds: no wounds Nails: normal Neuro General: patient oriented x3, gait normal and CN's II-XI intact bilaterally Cranial nerves: Yes Equal, round and reactive pupils present Cognition (Neuro): normal cognition Gait exam (Neuro): Normal gait present Motor exam (neuro): 5/5 motor strength present throughout Sensory Exam: No Sensory deficit (Neuro) Deep tendon reflexes (DTR's): Right patellar reflex intensity grade: 2+ and Left patellar reflex intensity grade: 2+ Extrem General: Yes normal to inspection, No edema and No calf tenderness Psych Appearance: grossly normal Affect: normal affect Attitude: cooperative Thought process: Normal thought process present Results AMB Hemoglobin A1c AMB Hemoglobin A1c 6.8 % Last Edit by Becky Zacarias CMA on 08/31/23 16:15 Results Reviewed Results Reviewed: Laboratory Last Values Hgb A1c (Clinic) 6.8 % (4.0-6.0) H 08/31/23 16:12 Assessment and Plan Assessment & Plan (1) Normal physical examination, routine: Code(s): Z00.00 - Encounter for general adult medical examination without abnormal findings Plan: No significant physical restrictions or limitations noted Continue current treatment regimen Healthy diet and routine exercise encouraged Follow-up in 3 months for diabetes or return sooner with symptoms or concerns Verbalized understanding and agreed with treatment plan (2) Type 2 diabetes mellitus: Code(s): E11.9 - Type 2 diabetes mellitus without complications Plan: A1c today is 6.8%, within goal of less than 7.0% Will start metformin 500 mg daily. Advised to take as prescribed. Instructed on the risks, benefits, and potential adverse reactions of the medication ADA diet and routine exercise encouraged Referred to Ophthalmology for diabetic retinal exam Follow-up in 3 months Verbalized understanding and agreed with treatment plan (3) Smoking: Code(s): F17.200 - Nicotine dependence, unspecified, uncomplicated Plan: She smokes 1 pack cigarette daily and has been smoking for the past 30 years Bupropion has not been effective Instructed on the rest, and complications of cigarette smoking and encouraged to quit Referred for smoking cessation counseling (4) Anxiety with depression: Code(s): F41.8 - Other specified anxiety disorders Plan: Controlled Continue current treatment regimen Return with symptoms or concerns Verbalized understanding and agreed with the plan (5) Clicking of right hip: Code(s): R29.4 - Clicking hip Plan: Reports clicking sound and cramps to of right hip with prolonged standing for the past 2 years. No history of imaging for this condition No overt injury or trauma noted X-ray ordered. Will review results and make changes as needed Follow-up with worsening or new symptoms Verbalized understanding and agreed with treatment plan (6) Systolic murmur: Code(s): R01.1 - Cardiac murmur, unspecified Plan: Echocardiogram ordered. Will review results and make changes or referred to Cardiology if warranted (7) Vaccine counseling: Code(s): Z71.85 - Encounter for immunization safety counseling Plan: She has not been vaccinated for shingles Instructed on the importance of vaccination and encouraged to get vaccinated for shingles. She may request the vaccine from her local pharmacy Verbalized understanding and agreed with the plan (8) Laboratory tests ordered as part of a complete physical exam (CPE): Code(s): Z00.00 - Encounter for general adult medical examination without abnormal findings Plan: Fasting labs ordered in preparation of a complete physical exam. Advised to fast for at least 10 hours before getting labs drawn. May drink water Verbalized understanding and agreed with treatment plan. Orders: Orders Complete Blood Count Auto Diff 08/31/23 Z00.00 - Encounter for general adult medical examination without abnormal findings Lipid Panel 08/31/23 Z00.00 - Encounter for general adult medical examination without abnormal findings CA echo transthoracic complete 08/31/23 R01.1 - Cardiac murmur, unspecified Comprehensive [place]. Panel Fast 08/31/23 Z00.00 - Encounter for general adult medical examination without abnormal findings TSH reflex Free T4 08/31/23 Z00.00 - Encounter for general adult medical examination without abnormal findings UA CC w/rflx Micro + Cult 08/31/23 Z00. - Encounter for general adult medical examination without abnormal findings Microalbumin, Random (w Creat) 08/31/23 Z00.00 - Encounter for general adult medical examination without abnormal findings AMB Hemoglobin A1c 08/31/23 R73.01 - Impaired fasting glucose XR hip RT w PEL1V 08/31/23 R29.4 - Clicking hip Referrals Ophthalmology Referral E11.9 - Type 2 diabetes mellitus without complications Smoking Cessation Counseling F17.200 - Nicotine dependence, unspecified, uncomplicated Medications: New metformin 500 mg PO DAILY 90 tabs 1RF 90 days Coding Level of Care Code Est Pt Level 4 (11033) Est Pt Prev Care 40-64y(83123) Diagnoses Normal physical examination, routine Z00.00 Type 2 diabetes mellitus E11.9 Smoking F17.200 Anxiety with depression F41.8 Clicking of right hip R29.4 Systolic murmur R01.1 Vaccine counseling Z71.85 Laboratory tests ordered as part of a complete physical exam (CPE) Z00.00 Additional Codes YOLANDA-7 Assessment Billing - YOLANDA-7 Assessment Tool: YOLANDA-7 Assessment [id number] ([id number])
[2023-08-31 16:15] VITALS: BP 130/84
== END 2023-08-31 16:27 | disposition home or self-care (01) ==
PROVIDERS: PCP Nurse Practitioner Family; Visit Provider Nurse Practitioner Family
DX: Z00.00 Encounter for general adult medical examination without abnormal findings (principal); E11.9 Type 2 diabetes mellitus without complications; R29.4 Clicking hip; R01.1 Cardiac murmur, unspecified; F17.210 Nicotine dependence, cigarettes, uncomplicated; F41.8 Other specified anxiety disorders; Z71.85 Encounter for immunization safety counseling
CPT/HCPCS: 83036; 99214; 99396

== ENCOUNTER 2023-08-31 16:27 | Outpatient (REF) | payer OTHER, SELFPAY | END 2023-08-31 16:28 | disposition home or self-care (01) | LOC: HO.LAB 16:27 | PROVIDERS: Visit Provider Nurse Practitioner Family | DX: Z13.89 Encounter for screening for other disorder (principal) ==

== ENCOUNTER 2023-09-03 08:17 | Outpatient (AMB) | payer OTHER, SELFPAY ==
--- NOTE | 2023-09-03 08:21 | A.OFFVIS_ITS ---
Vital Signs 09/03/23 08:22 Height 5 ft 6 in Weight 212 lb BMI 34.2 BP 147/68 H Blood Pressure Location Lt brachial Position Sitting Pulse 91 Intake Visit Reasons: f/u colonoscopy Intake Note: Patient follow up for Colonoscopy results. Patient denies any GI issues. 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 She has occasional CIC and RB from known hemorrhoids, and she denies any upper GI problems. There are no prior problems with anesthesia or sedation. She denies any cardiac or respiratory problems. No ID problems. There is no known FHX of CRC or polyps. Orders: Orders Colonoscopy - GI Use Only 01/27/23 Z01.818 - Encounter for other preprocedural examination Medications: New peg 3350-electrolytes 236-22.74-6.74 -5.86 gram (Golytely) until fecal effluent is clear; do not exceed a total volume of 2,000 mL 240 mL PO Q10M 4,000 mL 0RF 1 day Z12.11 - Encounter for screening for malignant neoplasm of colon COLONOSCOPY 07/22/23 Findings: Terminal Ileum-not intubated Cecum: 4-6 mm sessile polyp removed with cold forceps Ascending Colon: normal Transverse Colon - 8-10 mm sessile polyp removed with cold snare Descending Colon:normal Sigmoid Colon: moderate diverticulosis, 5-7 mm sessile polyp removed with cold snare Rectum: Retroflexion with small internal hemorrhoids seen, grade I Anorectum - normal Intervention: cold snare, cold forceps Impression and Post Procedure Diagnosis: diverticulosis colon polyps internal hemorrhoids Plan: High fiber diet leaflet Avoid straining at stool, epsom salts and sitz bath, anusol supps or cream Repeat Colonoscopy in 1 year due to fair to poor prep in certain areas or earlier if clinically indicated BIOPSY Received: 07/22/23 Diagnosis A. Colon, cecum, polypectomy: Tubular adenoma; negative for high-grade dysplasia. B. Colon, transverse, polypectomy: Early features of sessile serrated polyp/lesion. C. Colon, sigmoid, polypectomy: Hyperplastic polyp TODAY'S VISIT She had severe N/V with the prep. She did not like the volume so we will need to fight for a lower volume prep. She is agreeable to a 1 year follow-up. The procedure was well tolerated. The results were explained and the patient is agreeable to the follow-up interval as stated. It took a couple of weeks for her bowels to return to normal. Education was provided to tell any 1st degree relatives about their findings to be sure that they are screened by age 45. E ducated that they will be put on a recall list when it is time for their repeat scope but should they move out of state or away from the hospital they will need to remember along with their primary to repeat the procedure in a timely fashion to avoid any adverse complications. Return office visit in 9 months [facility] Medical History (Updated 09/03/23 @ 08:45 by FACUNDO Briones) Bronchitis Elevated cholesterol Anxiety with depression Pre-diabetes Gallbladder anomaly Skin cancer (melanoma) Eczema Surgical History (Updated 09/03/23 @ 08:23 by Gemini Alvarado) Hx of colonoscopy Hx of dilation and curettage Hx of cholecystectomy Hx of section H/O hand surgery Family History Father Heart disease Hypertension Hyperlipemia No family history of mental disorder Maternal Grandmother No family history of mental disorder Pancreatic cancer Social History Household Members: Spouse Housing: House Alcohol intake: current Alcohol intake frequency: does not drink Patient Tobacco Use Status: Current everyday Tobacco user Tobacco use type: Cigarette Cigarette Packs Per Day: 1 Cigarettes Per Day: 20.0 Years Smoked: 30 e-Cigarette/Vaping Use: Never Used service: No 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 Sexual orientation: Straight/Heterosexual Gender identity: Female Cognitive needs: No Hearing needs: No Vision needs: No Review of Systems Const Denies fatigue, Denies fever(s), Denies night sweats, Denies poor appetite and Denies weight loss ENT Reports Normal hearing present, Denies dental pain, Denies dysphagia, Denies hearing loss, Denies mouth pain, Denies odynophagia, Denies throat swelling, Denies tongue swelling and Reports other (Dentition adequate) Card Reports no additional complaints Resp Reports no additional complaints GI Details: Denies abdominal pain, Denies melena, Denies bloating, Denies hematochezia, Denies constipation, Denies GI cramping, Denies dysphagia, Denies excessive flatus, Denies early satiety, Denies heartburn, Denies diarrhea, Reports nausea, Denies odynophagia, Reports vomiting and Denies hematemesis Skin/Breast Denies pruritus, Denies lesions, Denies rash and Denies jaundice Neuro Reports Normal hearing present and Denies Abnormal speech present Endo Denies fatigue Aller/Immun Denies throat swelling and Denies tongue swelling Physical Exam Vital Signs: Last Vital Signs Pulse 91 09/03/23 08:22 BP 147/68 H 09/03/23 08:22 BMI result Body Mass Index 34.2 Const General: cooperative, no acute distress, well developed and well groomed Nutritional Appearance: well nourished and obese Orientation/consciousness: oriented to person, oriented to place and oriented to time Limitations: No language barrier HEENT Head: Yes normocephalic and Yes atraumatic Eyes General: appearance normal, both eyes and all related structures Pupils: Equal, round and reactive pupils present Neck Neck: Yes normal visual inspection and Yes no lymphadenopathy Thyroid: Thyroid normal Resp Effort & Inspection: normal respiratory effort and able to speak in complete sentences Auscultation: clear to auscultation bilaterally Cardio Rate: regular rate Rhythm: regular rhythm Heart sounds: Normal, physiologic split S2 sound present Peripheral pulses: radial pulses present and posterior tibial pulses present GI Inspection: No distended, No Abdominal panniculus present and Yes obesity Palpation (GI): Soft to palpation, nontender, no guarding, not rigid and No hepatosplenomegaly present Percussion: Yes normal to percussion Auscultation: normal bowel sounds Rectal Exam - Female: deferred Skin General skin exam: no rashes or lesions noted, turgor normal, skin not dry, no jaundice, No spider nevi and no striae Rashes: no rashes Nails: normal Neuro General: oriented to person, oriented to place and oriented to time Cranial nerves: Yes Equal, round and reactive pupils present and Yes Normal hearing present Speech: No Abnormal speech present Extrem General: Yes normal to inspection, No clubbing, No cyanosis and No edema Psych Appearance: grossly normal and well kempt Mental Status: mental status grossly normal Speech and movement: Normal speech and movement present Affect: normal affect Attitude: cooperative Thought process: Normal thought process present and not confabulating Thought content: Normal thought content present Insight: Limited insight present (Psych) Judgement: Limited judgement present (Psych) Results Reviewed Results Reviewed: COLONOSCOPY 07/22/23 Findings: Terminal Ileum-not intubated Cecum: 4-6 mm sessile polyp removed with cold forceps Ascending Colon: normal Transverse Colon - 8-10 mm sessile polyp removed with cold snare Descending Colon:normal Sigmoid Colon: moderate diverticulosis, 5-7 mm sessile polyp removed with cold snare Rectum: Retroflexion with small internal hemorrhoids seen, grade I Anorectum - normal Intervention: cold snare, cold forceps Impression and Post Procedure Diagnosis: diverticulosis colon polyps internal hemorrhoids Plan: High fiber diet leaflet Avoid straining at stool, epsom salts and sitz bath, anusol supps or cream Repeat Colonoscopy in 1 year due to fair to poor prep in certain areas or earlier if clinically indicated BIOPSY Received: 07/22/23 Diagnosis A. Colon, cecum, polypectomy: Tubular adenoma; negative for high-grade dysplasia. B. Colon, transverse, polypectomy: Early features of sessile serrated polyp/lesion. C. Colon, sigmoid, polypectomy: Hyperplastic polyp Assessment & Plan Assessment & Plan (1) Tubular adenoma of colon: Comment: 07/2023 SCOPE= TA, POOR PREP REPEAT IN 1 YEAR Code(s): D12.6 - Benign neoplasm of colon, unspecified Category: Medical Plan She had severe N/V with the prep. She did not like the volume so we will need to fight for a lower volume prep. She is agreeable to a 1 year follow-up. The procedure was well tolerated. The results were explained and the patient is agreeable to the follow-up interval as stated. It took a couple of weeks for her bowels to return to normal. Education was provided to tell any 1st degree relatives about their findings to be sure that they are screened by age 45. Educated that they will be put on a recall list when it is time for their repeat scope but should they move out of state or away from the hospital they will need to remember along with their primary to repeat the procedure in a timely fashion to avoid any adverse complications. Return office visit in 9 months Coding Level of Care Code Est Pt Level 3 (50814) Diagnoses Tubular adenoma of colon D12.6
[2023-09-03 08:22] VITALS: BP 147/68; PULSE 91; BMI 34.2
== END 2023-09-03 08:53 | disposition home or self-care (01) ==
PROVIDERS: PCP Nurse Practitioner Family; Visit Provider Nurse Practitioner
DX: D12.6 Benign neoplasm of colon, unspecified (principal)
CPT/HCPCS: 99213

== ENCOUNTER → 2023-09-03 08:17 | Outpatient (BNVA) | payer OTHER, SELFPAY | PROVIDERS: PCP Nurse Practitioner Family; Visit Provider Nurse Practitioner | DX: Z01.818 Encounter for other preprocedural examination (principal); D12.6 Benign neoplasm of colon, unspecified | CPT/HCPCS: 99212 ==

== ENCOUNTER → 2023-10-06 08:49 | Outpatient (REF) | payer OTHER, SELFPAY ==
--- NOTE | 2023-10-06 08:54 | CA_ITS ---
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 Normal LV ejection fraction 55-60% with pseudonormal filling pattern 2. Early mild aortic stenosis with mild mitral calcification 3. Upper limits of normal ascending aortic size 4. No gross pericardial effusion Findings Procedure Information Contrast agent, definity, is being given per protocol without apparent complications. Left Ventricle Normal left ventricular size, thickness, and systolic function. The visually estimated ejection fraction is between 55-60%. Spectral Doppler is indicative of a pseudonormal filling pattern. Wall Motion Rest Echo Findings The basal inferior and basal inferoseptal segments are hypokinetic. All other scored wall segments showed normal motion. Right Ventricle Normal right ventricular cavity size and systolic function. Atria The left atrium is likely dilated. There is no evidence of interatrial shunt. The right atrium is normal in size. Aortic Valve There is mild calcification of the aortic valve. There is mild thickening of the aortic valve. There is mild aortic valve stenosis. The peak aortic gradient is 15 mmHg.The mean gradient is 7 mmHg. The aortic valve area is 2.32 cm2. There is no aortic valve regurgitation. Mitral Valve There is mild anterior and posterior mitral leaflet thickening. There is mild mitral annular calcification. There is trace mitral valve regurgitation. There is no mitral valve stenosis. Pulmonic Valve The pulmonic valve was not well visualized. Tricuspid Valve Likely normal tricuspid valve structure and function. Tricuspid regurgitation envelope is inadequate for calculation of right ventricular systolic pressure. Normal right atrial pressure. Great Vessels The pulmonary artery was not well visualized. Small plaque is seen in the sino tubular ridge. Venous The inferior vena cava is normal in size and collapses greater than 50% with inspiration. Pericardium/Pleural There is no evidence of pericardial effusion. Prior Study Comparison No prior study available for comparison. Measurements 2D Linear Measurements IVSd: 1.04 0.6-0.9/0.6-1.0 cm LVIDd: 4.34 3.9-5.3/4.2-5.9 cm LVIDd Index: 2.25 2.4-3.2/2.2-3.1 cm/m2 LVIDs: 2.84 2.0-3.6 cm LVPWd: 1.03 0.7-1.1 cm LA Diam: 3.20 2.7-3.8/3.0-4.0 cm LAIDs Index: 1.66 1.5-2.3 cm/m2 LV Mass: 202.58 67-162/88-224 g LV Mass Index: 104.96 43-95/49-115 g/m2 LVOT Diam: 2.30 3.0+(-)1.3 cm 2D Systolic Function EF 4C: 50.80 >55% EF 2C: 60.90 >55% EF BiP: 56.00 >55% Mitral Valve MV Pk E: 0.86 MV PK A: 0.61 MV Decel Time: 266.00 E/A: 1.40 E'Lateral: 6.85 E'Medial: 4.57 E/E' Med: 18.80 E/E' Lat: 12.50 PHT: 78.00 MVA PHT: 2.82 Decel Grayson: 3.22 Aortic Valve AoV Pk Bridger: 1.95 AoV Mn Bridger: 1.28 AoV VTI: 0.36 AoV Pk Grad: 15.00 Aov Mn Grad: 7.00 TONYA Cont.VTI: 2.32 LVOT LVOT Pk Bridger: 0.86 LVOT Mn Bridger: 0.54 LVOT VTI: 0.20 LVOT Pk Grad: 3.00 LVOT Mn Grad: 1.00 LVOT Diam: 2.30 LVOT Area: 4.15 Diastolic Function MV Pk E: 0.86 MV Pk A: 0.61 E/A: 1.40 E'Medial: 4.57 E/E' Med: 18.80 E' Laterial: 6.85 E/E' Lat: 12.50 Right Ventricle TAPSE (mm): 24.90 TVS' Bridger: 12.50 Tricuspid Valve RA Press: 3.00 Great Vessels Aorta Sinus of Valsalva: 3.59 2.0-3.[address] Ridge: 2.15 1.7-3.4 cm Ao Asc: 3.50 2.1-3.4 cm Updated in Other Vendor System with Status of Final Jonathon Khan MD electronically signed on 10/06/2023 3:39:57 PM with status of Final
== END ==
LOC: HO.CARD 08:49
PROVIDERS: PCP Nurse Practitioner Family; Visit Provider Nurse Practitioner Family
DX: R01.1 Cardiac murmur, unspecified (principal)
CPT/HCPCS: 93306; Q9957

== ENCOUNTER → 2023-10-06 08:54 | Outpatient (BNV) | payer OTHER, SELFPAY | PROVIDERS: PCP Nurse Practitioner Family; Visit Provider Internal Medicine Cardiovascular Disease | DX: I35.0 Nonrheumatic aortic (valve) stenosis (principal); I35.8 Other nonrheumatic aortic valve disorders; I34.81 Nonrheumatic mitral (valve) annulus calcification | CPT/HCPCS: 93306 ==

== ENCOUNTER 2023-10-07 11:01 | Outpatient (REF) | payer OTHER, SELFPAY ==
--- NOTE | ~2023-10-07 | US_ITS ---
EXAMINATION: US PELVIS CLINICAL INFORMATION: Uterine leiomyoma. COMPARISON: Ultrasound pelvis 02/02/2023, MRI pelvis 03/31/2023. TECHNIQUE: Ultrasound of the pelvis is performed using both transabdominal and transvaginal transducers along with Doppler. Transvaginal imaging is performed due to inadequate visualization transabdominally. FINDINGS: UTERUS: The uterus is anteverted and anteflexed measuring 8.5 x 5.3 x 6.0 cm. The double wall endometrial thickness is 3-4 mm. Multiple uterine fibroids are seen with the largest submucosal on the right measuring 2.7 x 2.6 x 2.4 cm (previously 3.8 x 5.7 x 4.7 cm). 2 small new fibroids are seen in the lower uterine segment on the left measuring 1.8 x 1.2 x 1.5 cm and 1.2 x 1.0 x 1.3 cm. An additional new fibroid is present anteriorly measuring 1.3 x 0.9 x 1.4 cm. Multiple nabothian cysts are present. ADNEXA: Both ovaries are visualized. There is normal color flow to the adnexa. There is no ovarian torsion. There is no pelvic ascites or fluid collection. Right ovary measures 2.7 x 1.6 x 1.8 cm for a volume of 4.1 mL. Punctate calcifications are seen. Left ovary measures 3.1 x 1.6 x 1.8 cm for a volume of 4.7 mL. Multiple punctate calcifications are seen. US/US pelvic and transvaginal IMPRESSION: Multiple uterine fibroids with the largest measuring 2.7 cm.
== END 2023-10-07 11:02 | disposition home or self-care (01) ==
LOC: HO.US 11:01
PROVIDERS: PCP Nurse Practitioner Family; Visit Provider Obstetrics & Gynecology
DX: D25.9 Leiomyoma of uterus, unspecified (principal)
CPT/HCPCS: 76830; 76856

== ENCOUNTER 2023-11-03 07:29 | Outpatient (AMB) | payer OTHER, SELFPAY ==
[2023-11-03 07:30] VITALS: BP 132/80; BMI 34.2
--- NOTE | 2023-11-03 07:30 | MHC.OFFVIS ---
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 Follow-up Pelvic ultrasound follow-up done in 10/19 showed the following: UTERUS: The uterus is anteverted and anteflexed measuring 8.5 x 5.3 x 6.0 cm. The double wall endometrial thickness is 3-4 mm. Multiple uterine fibroids are seen with the largest submucosal on the right measuring 2.7 x 2.6 x 2.4 cm (previously 3.8 x 5.7 x 4.7 cm). 2 small new fibroids are seen in the lower uterine segment on the left measuring 1.8 x 1.2 x 1.5 cm and 1.2 x 1.0 x 1.3 cm. An additional new fibroid is present anteriorly measuring 1.3 x 0.9 x 1.4 cm. Multiple nabothian cysts are present. ADNEXA: Both ovaries are visualized. There is normal color flow to the adnexa. There is no ovarian torsion. There is no pelvic ascites or fluid collection. Right ovary measures 2.7 x 1.6 x 1.8 cm for a volume of 4.1 mL. Punctate calcifications are seen. Left ovary measures 3.1 x 1.6 x 1.8 cm for a volume of 4.7 mL. Multiple punctate calcifications are seen. PENDING SALE TO [facility] Medical History Bronchitis Elevated cholesterol Anxiety with depression Pre-diabetes Gallbladder anomaly Skin cancer (melanoma) Eczema Surgical History Hx of colonoscopy Hx of dilation and curettage Hx of cholecystectomy Hx of section H/O hand surgery Family History Father Heart disease Hypertension Hyperlipemia No family history of mental disorder Maternal Grandmother No family history of mental disorder Pancreatic cancer Social History Household Members: Spouse Housing: House Alcohol intake: current Alcohol intake frequency: does not drink Patient Tobacco Use Status: Current everyday Tobacco user Tobacco use type: Cigarette Cigarette Packs Per Day: 1 Cigarettes Per Day: 20.0 Years Smoked: 30 e-Cigarette/Vaping Use: Never Used service: No 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 Sexual orientation: Straight/Heterosexual Gender identity: Female Cognitive needs: No Hearing needs: No Vision needs: No Review of Systems Const All systems reviewed & are unremarkable except as noted in HPI and below Reports as per HPI and Reports no additional complaints GI Reports no additional complaints Reports no additional complaints Physical Exam Vital Signs: Last Vital Signs BP 132/80 11/03/23 07:30 BMI result Body Mass Index 34.2 Assessment & Plan Assessment & Plan (1) Uterine myoma: Code(s): D25.9 - Leiomyoma of uterus, unspecified Category: Medical Plan: Discussed with the patient the findings on pelvic ultrasound & the risk of myosarcoma; discussed with the patient the options of treatment including expectant management versus hysterectomy; the pros and cons, risks benefits of each approach were discussed with the patient including the fact that in cases of myosarcoma, surgical treatment can lead to early diagnosis and positively affects the prognosis; after further discussion, the patient decided to proceed with expectant management. Will repeat pelvic ultrasound periodically. Instructions given to patient to call in case any of the following occurs: pressure symptoms, abnormal uterine bleeding, pelvic pain; and to schedule a six-month pelvic ultrasound and a follow-up appointment . All questions answered, the patient verbalized understanding and agreed with the plan . Orders: Orders US pelvic and transvaginal 6 Months D25.9 - Leiomyoma of uterus, unspecified Coding Level of Care Code Est Pt Level 3 (36765) Diagnoses Uterine myoma D25.9
== END 2023-11-03 07:55 | disposition home or self-care (01) ==
LOC: HO.HWS 07:29
PROVIDERS: PCP Nurse Practitioner Family; Visit Provider Obstetrics & Gynecology
DX: D25.9 Leiomyoma of uterus, unspecified (principal)
CPT/HCPCS: 99213

== ENCOUNTER → 2023-11-03 07:29 | Outpatient (BNVA) | payer OTHER, SELFPAY | PROVIDERS: PCP Nurse Practitioner Family; Visit Provider Obstetrics & Gynecology | DX: D25.9 Leiomyoma of uterus, unspecified (principal) | CPT/HCPCS: 99212 ==

== ENCOUNTER 2023-11-30 08:58 | Outpatient (REF) | payer OTHER, SELFPAY ==
[2023-11-30 11:22] LABS: Appearance Urine Clear; Color Urine Yellow; Glucose Urine UA Negative (Negative); Leukocyte Esterase Urine Trace (Negative); Nitrite Urine Negative (Negative); Specific Gravity - Urine 1.015 (1.005-1.025); UMIC TRIGGER UACC YES; Urine Blood Negative (Negative); Urine Ketones Negative (Negative); Urine Protein Trace mg/dL (Neg-Trace)
[2023-11-30 11:25] LABS: Bacteria Urine Trace (None Seen); Hyaline Casts Urine 0-2 /LPF (0-2); RBC Urine 0-2 /HPF (0-2); WBC Urine 0-5 /HPF (0-5)
[2023-11-30 11:31] LABS: MANUAL DIFF FLAG NO
[2023-11-30 11:38] LABS: Basophils Absolute Auto 0.1 X10*3/uL (0.0-0.2); Basophils Percent Auto 0.8 % (0-2); Eosinophils Absolute Auto 0.5 X10*3/uL (0.0-0.4); Hematocrit 44.6 % (37.0-47.0); Hemoglobin 14.9 g/dl (12.0-16.0); Imm Gran Abs Auto 0.07 X10*3/uL (0.00-0.03); Imm Gran Pct Auto 0.5 % (0.0-0.4); Lymphocytes Absolute Auto 3.9 X10*3/uL (1.2-4.9); Lymphocytes Percent Auto 25.5 % (20-40); Mean Corpuscular HGB Conc 33.4 g/dl (31.0-35.0); Mean Corpuscular Hemoglobin 31.9 pg (27.0-33.0); Mean Corpuscular Volume 95.5 fL (80.0-98.0); Mean Platelet Volume 10.7 fL (9.4-12.3); Monocytes Absolute Auto 0.8 X10*3/uL (0.1-1.2); Monocytes Percent Auto 5.1 % (2-11); Neutrophils Absolute Auto 9.9 x10*3/uL (2.0-8.3); Neutrophils Percent Auto 65.1 % (45-73); Platelet Count 301 X10*3/uL (160-400); Red Blood Count 4.67 X10*6/uL (4.20-5.50); Red Cell Distribution Width 14.4 % (11.0-16.0); White Blood Count 15.2 X10*3/uL (4.8-10.8)
[2023-11-30 11:42] LABS: Estimated Average Glucose 126 mg/dL
[2023-11-30 12:01] LABS: Alanine Aminotransferase 33 U/L (0-31); Albumin Level 4.3 g/dL (3.5-5.0); Alkaline Phosphatase 108 U/L (39-117); Anion Gap 16 (12-20); Aspartate Amino Transferase 21 U/L (5-31); Bilirubin Total 0.7 mg/dL (0.0-1.0); Blood Urea Nitrogen 9 mg/dL (9-16); Calcium 9.9 mg/dL (8.4-10.2); Carbon Dioxide 23 mmol/L (22-29); Chloride 107 mmol/L (96-108); Cholesterol 193 mg/dL (<200); Estimated Glomerular Filt Rate > 60; Glucose Fasting 137 mg/dL (60-99); HDL Cholesterol 40 mg/dL (>40); LDL Cholesterol Calculated 107 mg/dL (<100); Potassium 3.9 mmol/L (3.3-5.1); Sodium 142 mmol/L (135-145); Total Protein 7.4 g/dL (6.5-8.0); Triglycerides 233 mg/dL (<150)
[2023-11-30 12:19] LABS: TSH reflex Free T4 0.93 uIU/mL (0.32-4.0)
[2023-11-30 12:25] LABS: Creatinine Urine 95.96 mg/dL; Microalbum/Creatinine Ratio Ur 72.9 ug/mg cr (<30)
== END 2023-11-30 08:59 | disposition home or self-care (01) ==
LOC: HO.WFDLDS 08:58
PROVIDERS: Visit Provider Nurse Practitioner Family
DX: Z00.00 Encounter for general adult medical examination without abnormal findings (principal); R73.03 Prediabetes
CPT/HCPCS: 36415; 80053; 80061; 81001; 82043; 82570; 83036; 84443; 85025

== ENCOUNTER 2023-12-08 08:37 | Outpatient (AMB) | payer OTHER, SELFPAY ==
--- NOTE | 2023-12-08 08:39 | MHC.PC.OV ---
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 Required: No Is last menstrual period known: No Post menopausal: No Patient : No Allergies codeine Allergy (Mild, Verified 12/08/23 08:46) Agitated Tobacco use date assessed: 12/08/23 Dental Screening Dental Screen Date: 12/08/23 Did you have a dental visit in the last 12 months?: No Did you have a dental problem in the last 6 months where you did not have access to dental care?: No Was dental information given to patient?: Patient declined HPI HPI Comments History of Present Illness Details 53-year-old female presents for diabetes follow-up She admits to taking her medications as prescribed without adverse reactions She reports controlled anxiety and depressive symptoms She notes that she has been making healthy dietary changes. She has not been exercising. She generally sleeps well She offers no complaints and denies acute symptoms at this time [facility] Medical History Bronchitis Elevated cholesterol Anxiety with depression Pre-diabetes Gallbladder anomaly Skin cancer (melanoma) Eczema Surgical History Hx of colonoscopy Hx of dilation and curettage Hx of cholecystectomy Hx of section H/O hand surgery Family History Father Heart disease Hypertension Hyperlipemia No family history of mental disorder Maternal Grandmother No family history of mental disorder Pancreatic cancer Social History Household Members: Spouse Housing: House Alcohol intake: current Alcohol intake frequency: does not drink Patient Tobacco Use Status: Current everyday Tobacco user Tobacco use type: Cigarette Cigarette Packs Per Day: 1 Cigarettes Per Day: 20.0 Years Smoked: 30 e-Cigarette/Vaping Use: Never Used service: No 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 1. Little interest or pleasure in doing things: not at all 2. Feeling down, depressed, or hopeless: not at all 3. Trouble falling or staying asleep, or sleeping too much: not at all 4. Feeling tired or having little energy: not at all 5. Poor appetite or overeating: not at all 6. Feeling bad about yourself - or that you are a failure or have let yourself or your family down: not at all 7. Trouble concentrating on things, such as reading the newspaper or watching television: not at all 8. Moving or speaking so slowly that other people could have noticed. Or the opposite - being so fidgety or restless that you have been moving around a lot more than usual: not at all 9. Thoughts that you would be better off or of hurting yourself in some way: not at all Total score: 0 Depression Screening Interpretation: Negative Depression Screening Done: Yes 96709 - PHQ-9 Billing: Yes Source: Developed by Drs. Ponce Morejon, Lia Pathak, Lalito Vasquez and colleagues, with an educational yaritza from [employer]. Thrive Questionnaire Date Thrive assessed: 08/31/23 YOLANDA-7 AMB Questionnaire YOLANDA-7 Date YOLANDA - 7 assessed: 12/08/23 Feeling nervous, anxious, or on edge: 1 = Several days Not being able to stop or control worryin = Not at all Worrying too much about different things: 0 = Not at all Trouble relaxin = Not at all Being so restless that it is hard to sit still: 0 = Not at all Becoming easily annoyed or irritable: 0 = Not at all Feeling afraid as if something awful might happen: 0 = Not at all Total YOLANDA-7 score (0-4 normal; 5-9 mild; 10-14 moderate; 15-21 severe): 1 Source: Developed by Drs. Ponce Morejon, Lia Pathak, Lalito Vasquez and colleagues, with an educational yaritza from [employer]. YOLANDA-7 Assessment Billing YOLANDA-7 Assessment Tool: YOLANDA-7 Assessment [id number] Review of Systems Const Details: Const Denies chills, Denies fatigue, Denies fever(s), Denies headache(s) and Denies weakness ENT Denies dizziness and Denies headache(s) Card Denies chest pain, Denies lightheadedness, Denies dyspnea and Denies other (Palpitations) Resp Denies cough, Denies dyspnea, Denies wheezing and Denies other ( shortness of breath) GI Denies abdominal pain, Denies melena, Denies hematochezia, Denies change in bowel habits, Denies dyspepsia and Denies nausea Denies hematuria and Denies dysuria Musc Denies abnormal gait, Denies myalgias, Denies arthralgias, Denies numbness and Denies tingling Skin/Breast Denies rash, Denies unusual bruising and Denies wounds Neuro Denies abnormal gait, Denies dizziness, Denies headache(s), Denies memory loss, Denies numbness, Denies Sensory deficit (Neuro), Denies tingling and Denies weakness Psych Denies anxiety, Denies depression, Denies memory loss Endo Denies cold intolerance, Denies fatigue, Denies heat intolerance, Denies polydipsia and Denies polyuria Aller/Immun Denies wheezing Physical exam (Primary Care) Vital Signs: Last Vital Signs Temp 98.0 F 12/08/23 08:49 Pulse 100 12/08/23 08:49 Resp 16 12/08/23 08:49 BP 142/82 H 12/08/23 08:57 Pulse Ox 96 12/08/23 08:49 Oxygen Delivery Method Room Air 12/08/23 08:49 BMI result Body Mass Index 34.1 Tobacco/Smoking Status: Tobacco use Status Tobacco use date assessed 12/08/23 12/08/23 08:48 Patient Tobacco Use Status Current everyday Tobacco 12/08/23 08:41 Tobacco use type Cigarette 12/08/23 08:41 e-Cigarette/Vaping Use Never Used 12/08/23 08:41 PHQ-9: PHQ-9 Score PHQ-9: Total score 0 12/08/23 08:54 Depression Screening Interpretation: Negative Thrive Assessment: Date of Thrive Assessment Date Thrive assessed 08/31/23 12/08/23 08:41 Const Other: General: no acute distress and well developed Nutritional Appearance: well nourished Orientation/consciousness: patient oriented x3 [facility] Head: Yes normocephalic and Yes atraumatic Eyes General: appearance normal, both eyes and all related structures Pupils: Equal, round and reactive pupils present EOM: EOMs intact bilaterally Resp Effort & Inspection: normal respiratory effort Auscultation: clear to auscultation bilaterally Cardio Rate: regular rate Rhythm: regular rhythm Heart sounds: S1 normal heart sound present, S2 normal heart sound present, no gallops, positive murmurs and no rubs GI Palpation (GI): No Abdominal aortic bruit present, Soft to palpation, nontender, No hepatosplenomegaly present and No Rebound tenderness present Auscultation: normal bowel sounds General: Yes no CVA tenderness Back/Spine/Pelvis Back: no CVA tenderness Cervical Spine: cervical ROM normal and No Cervical spine tenderness Thoracic/Lumbar Spine: thoraco-lumbar ROM normal, No pain with thoraco-lumbar ROM, No thoracic spinal tenderness and No lumbar spinal tenderness Extrem General: Yes normal to inspection, No edema and No calf tenderness Skin General: warm and dry. Normal skin color. Normal skin turgor Neuro General: patient oriented x3, gait normal and no focal neuro deficit Cranial nerves: Yes Equal, round and reactive pupils present Cognition (Neuro): normal cognition Gait exam (Neuro): Normal gait present Sensory Exam: No Sensory deficit (Neuro) Psych Appearance: grossly normal Affect: normal affect Attitude: cooperative Thought process: Normal thought process present Results AMB Hemoglobin A1c AMB Hemoglobin A1c 6.6 % Last Edit by Marjorie Alatorre on 12/08/23 09:27 Results Reviewed Results Reviewed: Laboratory Last Values Hgb A1c (Clinic) 6.6 % (4.0-6.0) H 12/08/23 09:08 Assessment and Plan Assessment & Plan (1) Type 2 diabetes mellitus: Code(s): E11.9 - Type 2 diabetes mellitus without complications Plan: A1c today 6.6%, within goal of less than 7.0%. Previous A1c was 6.8% Continue current treatment regimen ADA diet and routine exercise encouraged Will recheck A1c in 3 months Verbalized understanding and agreed with the treatment plan (2) Dyslipidemia: Code(s): E78.5 - Hyperlipidemia, unspecified Plan: Recent triglycerides and LDL levels are elevated, 233 and 107 respectively; LDL goal is less than 100. HDL level is slightly elevated, 40 Continue to take pravastatin as prescribed Advised to limit foods high in saturated fat and avoid foods high in trans fat Routine exercise encouraged Will recheck lipid panel levels in 3 months Verbalized understanding and agreed with the treatment plan (3) Microalbuminuria: Code(s): R80.9 - Proteinuria, unspecified Plan: Recent urine microalbumin/creatinine ratio is 72.9 Adequate hydration encouraged Will repeat urine microalbumin/creatinine ratio and make changes as needed Verbalized understanding and agreed with the plan (4) Elevated blood pressure reading in office without diagnosis of hypertension: Code(s): R03.0 - Elevated blood-pressure reading, without diagnosis of hypertension Plan: Resting blood pressure is 142/82, above goal of less than 130/80 She admits to consuming significant amount of sodium Low-sodium diet and routine exercise encouraged Follow-up in 1 month or sooner with symptoms or concerns Verbalized understanding and agreed with the treatment plan (5) Leukocytosis: Code(s): D72.829 - Elevated white blood cell count, unspecified Plan: Recent WBC is elevated, 15.2; equivocal She has history of leukocytosis Will refer to [facility] oncology/hematology (6) Anxiety with depression: Code(s): F41.8 - Other specified anxiety disorders Plan: She reports controlled anxiety and depressive symptoms PHQ-9 and YOLANDA-7 scores are normal Continue current treatment regimen Routine exercise encouraged Follow-up with symptoms or concerns Verbalized understanding and agreed with the plan Orders: Orders Microalbumin, Random (w Creat) Today E11.9 - Type 2 diabetes mellitus without complications, R80.9 - Proteinuria, unspecified Lipid Panel 3 Months E78.5 - Hyperlipidemia, unspecified AMB Hemoglobin A1c Today Z13.9 - Encounter for screening, unspecified Referrals Hematology & Oncology Referral D72.829 - Elevated white blood cell count, unspecified Coding Level of Care Code Est Pt Level 4 (80109) Diagnoses Type 2 diabetes mellitus E11.9 Dyslipidemia E78.5 Microalbuminuria R80.9 Elevated blood pressure reading in office without diagnosis of hypertension R03.0 Leukocytosis D72.829 Anxiety with depression F41.8 Additional Codes YOLANDA-7 Assessment Billing - YOLANDA-7 Assessment Tool: YOLANDA-7 Assessment [id number] ([id number])
[2023-12-08 08:49] VITALS: BP 144/70; PULSE 100; RESP 16; TEMP 36.7; O2SAT 96; BMI 34.1
[2023-12-08 08:57] VITALS: BP 142/82
== END 2023-12-08 09:08 | disposition home or self-care (01) ==
PROVIDERS: PCP Nurse Practitioner Family; Visit Provider Nurse Practitioner Family
DX: E11.9 Type 2 diabetes mellitus without complications (principal); E78.5 Hyperlipidemia, unspecified; R80.9 Proteinuria, unspecified; R03.0 Elevated blood-pressure reading, without diagnosis of hypertension; D72.829 Elevated white blood cell count, unspecified; F41.8 Other specified anxiety disorders
CPT/HCPCS: 83036; 99214

== ENCOUNTER 2023-12-28 15:53 | Outpatient (REF) | payer OTHER, SELFPAY ==
--- NOTE | ~2023-12-28 | XR_ITS ---
EXAMINATION: XR HIP RIGHT 3 VIEWS CLINICAL INFORMATION: Clicking hip R29.4. Patient states clicking in right hip, no previous trauma. COMPARISON: MR Pelvis without and with contrast 03/31/2023 TECHNIQUE: AP and lateral views of the right hip. FINDINGS: Visualized portion of the proximal right femur demonstrate no fracture. Femoral head is well-seated within the acetabulum. Right femoral acetabular joint space is well-maintained. Numerous surgical clips project over the right inguinal region. The pelvic ring is intact. The left hip is grossly unremarkable. Small calcifications of the pelvis are likely vascular in nature. XR/XR hip RT w PEL1V IMPRESSION: No fracture, dislocation or significant degenerative changes of the right hip. Electronically signed by: Jose Elias Friedman MD 03/09/2024 08:40 AM [facility]
== END 2023-12-28 15:54 | disposition home or self-care (01) ==
LOC: HO.XRAY 15:53
PROVIDERS: PCP Nurse Practitioner Family; Visit Provider Nurse Practitioner Family
DX: R29.4 Clicking hip (principal)
CPT/HCPCS: 73502

== ENCOUNTER 2024-01-12 08:32 | Outpatient (AMB) | payer OTHER, SELFPAY ==
--- NOTE | 2024-01-12 08:35 | A.OFFPC_ITS ---
Vital Signs 01/12/24 08:40 01/12/24 08:51 Height 5 ft 6 in Weight 208 lb 4 oz BMI 33.6 BP 148/86 H 140/84 H Blood Pressure Location Rt brachial Rt brachial Position Sitting Sitting Respiration 16 Pulse 67 Pulse Source Pulse Oximeter Temp 97.7 F Temp Source Oral Pulse Oximetry (%) 97 Oxygen Delivery Method Room Air Intake Visit Reasons: 1 mos elevated BP Intake Note: patient here for 1 month elevated blood pressure. Bucket Hooker Required: No Is last menstrual period known: No Post menopausal: No Patient : No Allergies codeine Allergy (Mild, Verified 01/12/24 08:38) Agitated Tobacco use date assessed: 01/12/24 Dental Screening Dental Screen Date: 01/12/24 Did you have a dental visit in the last 12 months?: No Did you have a dental problem in the last 6 months where you did not have access to dental care?: No Was dental information given to patient?: Yes HPI HPI Comments History of Present Illness Details 53-year-old female presents for elevated blood pressure follow-up Her blood pressure was elevated, 142/82, at her last visit about a month ago. She admits to consuming significant amount of sodium. She was encouraged to maintain a low-sodium diet and follow-up in 1 month Her blood pressure was elevated, 158/95, at her hematology/oncology visit on 12/28/2023 She admits to taking her medications as prescribed without adverse reactions She offers no complaints and denies acute symptoms at this time [facility] Medical History Bronchitis Elevated cholesterol Anxiety with depression Pre-diabetes Gallbladder anomaly Skin cancer (melanoma) Eczema Surgical History Hx of colonoscopy Hx of dilation and curettage Hx of cholecystectomy Hx of section H/O hand surgery Family History Father Heart disease Hypertension Hyperlipemia No family history of mental disorder Maternal Grandmother No family history of mental disorder Pancreatic cancer Social History (Updated 12/28/23 @ 15:14 by Tony Centeno) Household Members: Spouse Housing: House Alcohol intake: current Alcohol intake frequency: does not drink Patient Tobacco Use Status: Current everyday Tobacco user Tobacco use type: Cigarette Cigarette Packs Per Day: 1 Years Smoked: 30 e-Cigarette/Vaping Use: Never Used service: No 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 1. Little interest or pleasure in doing things: more than half the days 2. Feeling down, depressed, or hopeless: not at all 3. Trouble falling or staying asleep, or sleeping too much: not at all 4. Feeling tired or having little energy: not at all 5. Poor appetite or overeating: not at all 6. Feeling bad about yourself - or that you are a failure or have let yourself or your family down: not at all 7. Trouble concentrating on things, such as reading the newspaper or watching television: not at all 8. Moving or speaking so slowly that other people could have noticed. Or the opposite - being so fidgety or restless that you have been moving around a lot more than usual: not at all 9. Thoughts that you would be better off or of hurting yourself in some way: not at all Total score: 2 Depression Screening Interpretation: Negative Depression Screening Done: Yes 46597 - PHQ-9 Billing: Yes Source: Developed by Drs. Ponce Morejon, Lia Pathak, Lalito Vasquez and colleagues, with an educational yaritza from [employer]. Thrive Questionnaire Date Thrive assessed: 08/31/23 I am a: Patient What is your living situation today?: I have a steady place to live Within the past 12 months, did the food you bought not last and you didn't have the money to get more?: Never true Within the past 12 months, did you worry whether your food would run out before you got money to buy more?: Never true Do you have trouble paying for medicines?: No Do you have trouble getting transportation to medical appointments?: No Do you have trouble paying your heating and electricity bill?: No Do you have trouble taking care of your child, family member or friend?: No Do you have trouble with day-to-day activities such as bathing, preparing meals, shopping, managing finances, etc.?: No Are you currently unemployed and looking for a job?: No Are you interested in more education?: No Please select the resources that you would like help with: None Currently or been in a relationship where the following occur: No concerns reported THRIVE Score: 0 AUDIT C Alcohol Use Questionnaire (AUDIT-C) 1. How often do you have a drink containing alcohol?: Monthly or less 2. How many drinks containing alcohol do you have on a typical day when you are drinking?: 1 or 2 3. How often do you have six or more drinks on one occasion?: Never Total Score: 1 YOLANDA-7 AMB Questionnaire YOLANDA-7 Date YOLANDA - 7 assessed: 12/08/23 Feeling nervous, anxious, or on edge: 1 = Several days Not being able to stop or control worryin = Several days Worrying too much about different things: 1 = Several days Trouble relaxin = Several days Being so restless that it is hard to sit still: 0 = Not at all Becoming easily annoyed or irritable: 1 = Several days Feeling afraid as if something awful might happen: 1 = Several days Total YOLANDA-7 score (0-4 normal; 5-9 mild; 10-14 moderate; 15-21 severe): 6 Source: Developed by Drs. Ponce Morejon, Lia Pathak, Lalito Vasquez and colleagues, with an educational yaritza from [employer]. Review of Systems Const Details: Const Denies chills, Denies fatigue, Denies fever(s), Denies headache(s) and Denies weakness ENT Denies dizziness and Denies headache(s) Card Denies chest pain, Denies lightheadedness, Denies dyspnea and Denies other (Palpitations) Resp Denies cough, Denies dyspnea, Denies wheezing and Denies other ( shortness of breath) GI Denies abdominal pain, Denies melena, Denies hematochezia, Denies change in bowel habits, Denies dyspepsia and Denies nausea Denies hematuria and Denies dysuria Musc Denies abnormal gait, Denies myalgias, Denies arthralgias, Denies numbness and Denies tingling Skin/Breast Denies rash, Denies unusual bruising and Denies wounds Neuro Denies abnormal gait, Denies dizziness, Denies headache(s), Denies memory loss, Denies numbness, Denies Sensory deficit (Neuro), Denies tingling and Denies weakness Psych Denies anxiety, Denies depression, Denies memory loss Endo Denies cold intolerance, Denies fatigue, Denies heat intolerance, Denies polydipsia and Denies polyuria Aller/Immun Denies wheezing Physical exam (Primary Care) Tobacco/Smoking Status: Tobacco use Status Tobacco use date assessed 01/12/24 01/12/24 08:40 Patient Tobacco Use Status Current everyday Tobacco 01/12/24 08:38 Tobacco use type Cigarette 01/12/24 08:38 e-Cigarette/Vaping Use Never Used 01/12/24 08:38 PHQ-9: PHQ-9 Score PHQ-9: Total score 2 01/12/24 08:38 Depression Screening Interpretation: Negative Thrive Assessment: Date of Thrive Assessment Date Thrive assessed 08/31/23 01/12/24 08:38 Currently or been in a relationship where the following occur: No concerns reported Const Other: General: no acute distress and well developed Nutritional Appearance: well nourished Orientation/consciousness: patient oriented x3 [facility] Head: Yes normocephalic and Yes atraumatic Eyes General: appearance normal, both eyes and all related structures Pupils: Equal, round and reactive pupils present EOM: EOMs intact bilaterally Resp Effort & Inspection: normal respiratory effort Auscultation: clear to auscultation bilaterally Cardio Rate: regular rate Rhythm: regular rhythm Heart sounds: S1 normal heart sound present, S2 normal heart sound present, no gallops, murmurs and no rubs GI Palpation (GI): No Abdominal aortic bruit present, Soft to palpation, nontender, No hepatosplenomegaly present and No Rebound tenderness present Auscultation: normal bowel sounds General: Yes no CVA tenderness Back/Spine/Pelvis Back: no CVA tenderness Extrem General: Yes normal to inspection, No edema and No calf tenderness Skin General: warm and dry. Normal skin color. Normal skin turgor Neuro General: patient oriented x3, gait normal and no focal neuro deficit Cranial nerves: Yes Equal, round and reactive pupils present Cognition (Neuro): normal cognition Gait exam (Neuro): Normal gait present Sensory Exam: No Sensory deficit (Neuro) Psych Appearance: grossly normal Affect: normal affect Attitude: cooperative Thought process: Normal thought process present Coding Level of Care Code Est Pt Level 3 (34631) Diagnoses Essential hypertension I10 Assessment & Plan Assessment & Plan (1) Essential hypertension: Code(s): I10 - Essential (primary) hypertension Category: Medical Plan: Resting blood pressure is 140/84, above goal of less than 130/80. Previous systolic blood pressure readings are above 140 Will start lisinopril 10 mg daily. Advised to take as prescribed. Instructed on the risks, benefits, and potential adverse reactions of the medication Low-sodium diet encouraged Follow-up in 1 month or sooner with symptoms or concerns Verbalized understanding and agreed with treatment plan Medications: New lisinopril 10 mg PO DAILY 30 days 30 tabs 3RF
[2024-01-12 08:40] VITALS: BP 148/86; PULSE 67; RESP 16; TEMP 36.5; O2SAT 97; BMI 33.6
[2024-01-12 08:51] VITALS: BP 140/84
== END 2024-01-12 09:01 | disposition home or self-care (01) ==
PROVIDERS: PCP Nurse Practitioner Family; Visit Provider Nurse Practitioner Family
DX: I10 Essential (primary) hypertension (principal)

== ENCOUNTER → 2024-01-12 08:32 | Outpatient (BNVA) | payer OTHER, SELFPAY | PROVIDERS: PCP Nurse Practitioner Family; Visit Provider Nurse Practitioner Family | DX: I10 Essential (primary) hypertension (principal) | CPT/HCPCS: 96127; 99212 ==

== ENCOUNTER 2024-01-18 14:33 | Outpatient (AMB) | payer OTHER, SELFPAY ==
[2024-01-18 14:38] VITALS: BP 130/76; PULSE 98; BMI 33.7
--- NOTE | 2024-01-18 14:38 | A.OFFVIS_ITS ---
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 Patient herself denies any history of coronary disease or myocardial infarction or cardiomyopathy or in fact any other complaints in the past. However, many comorbidities. She is overweight. History of smoking. Family history positive for coronary disease in her father. Patient also has diabetes, hypertension and dyslipidemia. Within limits of her activity, she does not have any clear-cut cardiac symptoms. No angina or shortness of breath or in fact anything cardiac sounding. [facility] Medical History Bronchitis Elevated cholesterol Anxiety with depression Pre-diabetes Gallbladder anomaly Skin cancer (melanoma) Eczema Surgical History Hx of colonoscopy Hx of dilation and curettage Hx of cholecystectomy Hx of section H/O hand surgery Family History Father Heart disease Hypertension Hyperlipemia No family history of mental disorder Maternal Grandmother No family history of mental disorder Pancreatic cancer Social History Household Members: Spouse Housing: House Alcohol intake: current Alcohol intake frequency: does not drink Patient Tobacco Use Status: Current everyday Tobacco user Tobacco use type: Cigarette Cigarette Packs Per Day: 1 Years Smoked: 30 e-Cigarette/Vaping Use: Never Used service: No 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 Sexual orientation: Straight/Heterosexual Gender identity: Female Cognitive needs: No Hearing needs: No Vision needs: No Review of Systems Const Denies chills, Denies fatigue, Denies fever(s), Denies frequent falls, Denies weakness, Denies weight gain and Denies weight loss ENT Denies dizziness Card Denies chest pain, Denies leg edema, Denies lightheadedness, Denies palpitations, Denies dyspnea, Denies dyspnea on exertion and Denies orthopnea Resp Denies cough, Denies dyspnea and Denies dyspnea on exertion GI Denies bloating and Denies change in bowel habits Musc Denies muscle weakness, Denies numbness and Denies tingling Neuro Denies dizziness, Denies frequent falls, Denies numbness, Denies tingling and Denies weakness Endo Denies fatigue and Denies palpitations Physical Exam Vital Signs: Last Vital Signs Pulse 98 01/18/24 14:38 BP 130/76 01/18/24 14:38 BMI result Body Mass Index 33.7 Const General: comfortable and no acute distress Orientation/consciousness: patient oriented x3 HEENT Other: Unremarkable Head: Yes normal to inspection Neck Neck: Yes normal visual inspection Chest Chest palpation & inspection: normal inspection of the chest Resp Auscultation: clear to auscultation bilaterally Cardio Palpation: normal PMI Heart sounds: S1 normal heart sound present, S2 normal heart sound present, no gallops, Murmur heart sound present systolic III/ and at the right sternal border and no rubs GI Palpation (GI): Soft to palpation Back/Spine/Pelvis Other: unremarkable Skin General skin exam: no rashes or lesions noted Neuro General: patient oriented x3 Extrem General: Yes normal to inspection Psych Mental Status: mental status grossly normal Office Procedures EKG Details: EKG with underlying sinus rhythm at 98/Min; biatrial enlargement; rightward axis; nonspecific ST-T changes. [id number], Complete Assessment & Plan Assessment & Plan (1) Abnormal EKG: Code(s): R94.31 - Abnormal electrocardiogram [ECG] [EKG] Category: Medical (2) Abnormal echocardiogram: Code(s): R93.1 - Abnormal findings on diagnostic imaging of heart and coronary circulation Category: Medical (3) Aortic valve sclerosis: Code(s): I35.8 - Other nonrheumatic aortic valve disorders Category: Medical (4) Smoking: Code(s): F17.200 - Nicotine dependence, unspecified, uncomplicated Category: Social Hx (5) Essential hypertension: Code(s): I10 - Essential (primary) hypertension Category: Medical (6) Type 2 diabetes mellitus: Code(s): E11.9 - Type 2 diabetes mellitus without complications Category: Medical (7) Dyslipidemia: Code(s): E78.5 - Hyperlipidemia, unspecified Category: Medical Plan Cardiac studies reviewed. EKG shows sinus rhythm with nonspecific ST-T changes. Echocardiogram with LVEF of 55-60%; basal inferior/inferoseptal hypokinesis. Images also reviewed. With regard to aortic valve, early stenosis. There is mild mitral annular calcification. Based on risk factors, we will proceed with further evaluation. We will arrange coronary CTA. She does not have any chest pain or cardiac symptoms at this time but if she indeed does develop any from now till the time of testing, advised her to contact us immediately or seek emergency help. She understands. Follow-up after testing. Orders: Orders Basic Metabolic Panel Today I25.10 - Atherosclerotic heart disease of [place] coronary artery without angina pectoris CT Cardiac Coronary Angio Today I25.10 - Atherosclerotic heart disease of [place] coronary artery without angina pectoris Coding Level of Care Code New Pt Level 4 (04136) Diagnoses Abnormal EKG R94.31 Abnormal echocardiogram R93.1 Aortic valve sclerosis I35.8 Smoking F17.200 Essential hypertension I10 Type 2 diabetes mellitus E11.9 Dyslipidemia E78.5 CPT Codes EKG - CPT: 26953-[id number], Complete ([id number])
== END 2024-01-18 15:11 | disposition home or self-care (01) ==
PROVIDERS: PCP Nurse Practitioner Family; Visit Provider Internal Medicine
DX: R94.31 Abnormal electrocardiogram [ECG] [EKG] (principal); R93.1 Abnormal findings on diagnostic imaging of heart and coronary circulation; I35.8 Other nonrheumatic aortic valve disorders; F17.200 Nicotine dependence, unspecified, uncomplicated; I10 Essential (primary) hypertension; E11.9 Type 2 diabetes mellitus without complications; E78.5 Hyperlipidemia, unspecified
CPT/HCPCS: 93010; 99204

== ENCOUNTER → 2024-01-18 14:33 | Outpatient (BNVA) | payer OTHER, SELFPAY | PROVIDERS: PCP Nurse Practitioner Family; Visit Provider Internal Medicine | DX: R94.31 Abnormal electrocardiogram [ECG] [EKG] (principal); R93.1 Abnormal findings on diagnostic imaging of heart and coronary circulation; I35.8 Other nonrheumatic aortic valve disorders; I10 Essential (primary) hypertension; E11.9 Type 2 diabetes mellitus without complications; E78.5 Hyperlipidemia, unspecified | CPT/HCPCS: 93005; 99202 ==

== ENCOUNTER 2024-02-23 07:50 | Outpatient (REF) | payer OTHER, SELFPAY ==
[2024-02-23 11:23] LABS: Appearance Urine Clear; Color Urine Yellow; Glucose Urine UA Negative (Negative); Leukocyte Esterase Urine Trace (Negative); Nitrite Urine Negative (Negative); PH 5.5 (5.0-9.0); Specific Gravity - Urine 1.015 (1.005-1.025); UMIC TRIGGER UACC YES; Urine Blood Negative (Negative); Urine Ketones Negative (Negative); Urine Protein Negative (Neg-Trace)
[2024-02-23 11:29] LABS: Bacteria Urine Trace (None Seen); Hyaline Casts Urine 0-2 /LPF (0-2); RBC Urine 0-2 /HPF (0-2); WBC Urine 0-5 /HPF (0-5)
[2024-02-23 11:53] LABS: Creatinine Urine 92.13 mg/dL; Microalbum/Creatinine Ratio Ur 30.3 ug/mg cr (<30)
[2024-02-23 12:07] LABS: Alanine Aminotransferase 47 U/L (0-31); Albumin Level 4.5 g/dL (3.5-5.0); Alkaline Phosphatase 101 U/L (39-117); Anion Gap 16 (12-20); Aspartate Amino Transferase 26 U/L (5-31); Bilirubin Total 0.5 mg/dL (0.0-1.0); Blood Urea Nitrogen 13 mg/dL (9-16); Calcium 10.3 mg/dL (8.4-10.2); Carbon Dioxide 26 mmol/L (22-29); Chloride 106 mmol/L (96-108); Cholesterol 201 mg/dL (<200); Estimated Glomerular Filt Rate > 60; Glucose Fasting 133 mg/dL (60-99); Glucose Random 133 mg/dL (60-115); HDL Cholesterol 42 mg/dL (>40); LDL Cholesterol Calculated 117 mg/dL (<100); Potassium 4.1 mmol/L (3.3-5.1); Sodium 144 mmol/L (135-145); Total Protein 7.6 g/dL (6.5-8.0); Triglycerides 211 mg/dL (<150)
== END 2024-02-23 07:51 | disposition home or self-care (01) ==
LOC: HO.WFDLDS 07:50
PROVIDERS: Referring Provider Internal Medicine; Visit Provider Nurse Practitioner Family
DX: Z00.00 Encounter for general adult medical examination without abnormal findings (principal); I25.10 Atherosclerotic heart disease of native coronary artery without angina pectoris; R80.9 Proteinuria, unspecified; E11.9 Type 2 diabetes mellitus without complications; E78.5 Hyperlipidemia, unspecified
CPT/HCPCS: 36415; 80048; 80053; 80061; 81001; 82043; 82570

== ENCOUNTER 2024-02-29 14:40 | Outpatient (AMB) | payer OTHER, SELFPAY ==
--- NOTE | 2024-02-29 14:46 | A.OFFPC_ITS ---
Vital Signs 02/29/24 14:49 02/29/24 15:15 Height 5 ft 6 in Weight 210 lb 8 oz BMI 34.0 BP 135/74 130/80 Blood Pressure Location Rt brachial Rt brachial Position Sitting Sitting Respiration 16 Pulse 101 H Pulse Source Pulse Oximeter Temp 97.2 F Temp Source Temporal Artery Scan Pulse Oximetry (%) 98 Oxygen Delivery Method Room Air Intake Visit Reasons: [id number] Intake Note: patient here for follw up on HTN Technical Aide Required: No Is last menstrual period known: No Post menopausal: No Patient : No Allergies codeine Allergy (Mild, Verified 02/29/24 15:11) Agitated Medication List - Last Reconciled 02/29/24 by Leonel James CNP bupropion HCl SR (Wellbutrin SR) 150 mg PO QAM 90 days lisinopril 10 mg PO DAILY 30 days metformin 500 mg PO DAILY 90 days pravastatin 40 mg PO BEDTIME Tobacco use date assessed: 02/29/24 Dental Screening Dental Screen Date: 02/29/24 Did you have a dental visit in the last 12 months?: No Did you have a dental problem in the last 6 months where you did not have access to dental care?: No Was dental information given to patient?: Patient declined HPI HPI Comments History of Present Illness Details Hypertension follow up. The patient is a 53-year-old female presenting with a rash, which began on Wednesday night. The rash is located on the right side of her abdomen, initially appearing as three small blisters and associated with itching and tenderness. The patient applied bacitracin and covered the area with a Band-Aid. Aside from this new issue, the patient has a history of essential hypertension, type 2 diabetes mellitus, hyperlipidemia, depression, and anxiety, all of which are currently managed with medications. Medications include lisinopril, pravastatin, metformin, and bupropion. The patient reports her blood pressure and anxiety are under management, although she continues to experience fluctuating days due to her mood disorder. Recent diagnostic tests reveal elevated cholesterol levels of 201, triglycerides at 211, and LDL at 117. These levels exceed the targets, despite adherence to pravastatin. Dietary habits, including occasional consumption of fast food, were discussed as potential contributing factors. The patient also indicated compliance with routine follow-up schedules for blood work and diagnostic imaging for a known cardiac murmur. Social History - The patient attempts to follow a low-s alt diet and limits red meat consumption. - Occasional intake of fast food is admi tted, possibly affecting cholesterol and triglyceride levels. - The patient has not yet received the s hingles vaccine. - She has scheduled a cardio CAT scan be cause of a previously detected cardiac murmur. [facility] Medical History Bronchitis Elevated cholesterol Anxiety with depression Pre-diabetes Gallbladder anomaly Skin cancer (melanoma) Eczema Surgical History Hx of colonoscopy Hx of dilation and curettage Hx of cholecystectomy Hx of section H/O hand surgery Family History Father Heart disease Hypertension Hyperlipemia No family history of mental disorder Maternal Grandmother No family history of mental disorder Pancreatic cancer Social History Household Members: Spouse Housing: House Alcohol intake: current Alcohol intake frequency: does not drink Patient Tobacco Use Status: Current everyday Tobacco user Tobacco use type: Cigarette Cigarette Packs Per Day: 1 Years Smoked: 30 e-Cigarette/Vaping Use: Never Used service: No 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 Sexual orientation: Straight/Heterosexual Gender identity: Female Cognitive needs: No Hearing needs: No Vision needs: No Questionnaire Thrive Questionnaire Date Thrive assessed: 01/12/24 I am a: Patient What is your living situation today?: I have a steady place to live Within the past 12 months, did the food you bought not last and you didn't have the money to get more?: Never true Within the past 12 months, did you worry whether your food would run out before you got money to buy more?: Never true Do you have trouble paying for medicines?: No Do you have trouble getting transportation to medical appointments?: No Do you have trouble paying your heating and electricity bill?: No Do you have trouble taking care of your child, family member or friend?: No Do you have trouble with day-to-day activities such as bathing, preparing meals, shopping, managing finances, etc.?: No Are you currently unemployed and looking for a job?: No Are you interested in more education?: No Please select the resources that you would like help with: None Currently or been in a relationship where the following occur: No concerns reported THRIVE Score: 0 YOLANDA-7 AMB Questionnaire YOLANDA-7 Date YOLANDA - 7 assessed: 12/08/23 Source: Developed by Drs. Ponce Morejon, Lia Pathak, Lalito Vasquez and colleagues, with an educational yaritza from [employer]. Review of Systems Const Details: Const Denies chills, Denies fatigue, Denies fever(s), Denies headache(s) and Denies weakness ENT Denies dizziness and Denies headache(s) Card Denies chest pain, Denies lightheadedness, Denies dyspnea and Denies other (Palpitations) Resp Denies cough, Denies dyspnea, Denies wheezing and Denies other ( shortness of breath) GI Denies abdominal pain, Denies melena, Denies hematochezia, Denies change in bowel habits, Denies dyspepsia and Denies nausea Denies hematuria and Denies dysuria Musc Denies abnormal gait, Denies myalgias, Denies arthralgias, Denies numbness and Denies tingling Skin/Breast Reports a rash with blister formation and itchiness on the right abdomen, Denies unusual bruising and Denies wounds Neuro Denies abnormal gait, Denies dizziness, Denies headache(s), Denies memory loss, Denies numbness, Denies Sensory deficit (Neuro), Denies tingling and Denies weakness Psych Denies anxiety, Denies depression, Denies memory loss Endo Denies cold intolerance, Denies fatigue, Denies heat intolerance, Denies polydipsia and Denies polyuria Aller/Immun Denies wheezing Physical exam (Primary Care) Vital Signs: Last Vital Signs Temp 97.2 F 02/29/24 14:49 Pulse 101 H 02/29/24 14:49 Resp 16 02/29/24 14:49 BP 130/80 02/29/24 15:15 Pulse Ox 98 02/29/24 14:49 Oxygen Delivery Method Room Air 02/29/24 14:49 BMI result Body Mass Index 34.0 Tobacco/Smoking Status: Tobacco use Status Tobacco use date assessed 02/29/24 02/29/24 14:51 Patient Tobacco Use Status Current everyday Tobacco 02/29/24 14:47 Tobacco use type Cigarette 02/29/24 14:47 e-Cigarette/Vaping Use Never Used 02/29/24 14:47 Thrive Assessment: Date of Thrive Assessment Date Thrive assessed 01/12/24 02/29/24 14:47 Currently or been in a relationship where the following occur: No concerns reported Const Other: General: no acute distress and well developed Nutritional Appearance: well nourished Orientation/consciousness: patient oriented x3 HENMT Head: Yes normocephalic and Yes atraumatic Eyes General: appearance normal, both eyes and all related structures Pupils: Equal, round and reactive pupils present EOM: EOMs intact bilaterally Resp Effort & Inspection: normal respiratory effort Auscultation: clear to auscultation bilaterally Cardio Rate: regular rate Rhythm: regular rhythm Heart sounds: S1 normal heart sound present, S2 normal heart sound present, no gallops, +murmurs and no rubs GI Palpation (GI): No Abdominal aortic bruit present, Soft to palpation, nontender, No hepatosplenomegaly present and No Rebound tenderness present Auscultation: normal bowel sounds General: Yes no CVA tenderness Back/Spine/Pelvis Back: no CVA tenderness Cervical Spine: cervical ROM normal and No Cervical spine tenderness Thoracic/Lumbar Spine: thoraco-lumbar ROM normal, No pain with thoraco-lumbar R OM, No thoracic spinal tenderness and No lumbar spinal tenderness Extrem General: Yes normal to inspection, No edema and No calf tenderness Skin General: warm and dry. Normal skin color. Normal skin turgor Lesions: no lesions Rashes: Red rash with induration noted to a small area of the skin to the right upper abdomen, likely consistent with shingles Trauma: no lacerations or abrasions Wounds: no wounds Nails: normal Neuro General: patient oriented x3, gait normal and no focal neuro deficit Cranial nerves: Yes Equal, round and reactive pupils present Cognition (Neuro): normal cognition Gait exam (Neuro): Normal gait present Sensory Exam: No Sensory deficit (Neuro) Psych Appearance: grossly normal Affect: normal affect Attitude: cooperative Thought process: Normal thought process present Coding Level of Care Code Est Pt Level 4 (33936) Complex EM visit Add On G2211 Diagnoses Essential hypertension I10 Hyperlipidemia E78.5 Shingles B02.9 Anxiety with depression F41.8 Assessment & Plan Assessment & Plan (1) Essential hypertension: Code(s): I10 - Essential (primary) hypertension Category: Medical Plan: Continue current medication regimen with lisinopril. Reinforce adherence to a low-salt diet. Reassess blood pressure in a month. (2) Hyperlipidemia: Code(s): E78.5 - Hyperlipidemia, unspecified Category: Medical Plan: Maintain pravastatin therapy at 40 mg nightly. Reinforce dietary modifications, reducing saturated fats and fast food intake. Follow-up in two months to repeat lipid panel. (3) Shingles: Code(s): B02.9 - Zoster without complications Category: Medical Plan: Red rash with induration noted to a small area of the skin to the right upper abdomen, likely consistent with shingles. Prescribe valacyclovir for antiviral treatment. Instruct patient to apply a triple antibiotic ointment to the affected area, maintain coverage, and monitor for significant pain escalation. (4) Anxiety with depression: Code(s): F41.8 - Other specified anxiety disorders Category: Medical Plan: Continue with bupropion for management of these conditions. Plan During the visit, I discussed the likelihood of the rash being shingles given its appearance and location. I emphasized the importance of promptly initiating antiviral treatment with valacyclovir. The benefits of maintaining skin hygiene and applying topical antibiotics to prevent secondary infection were explained. We reviewed the management of her chronic conditions, particularly the stabilization of her hypertension and diabetes, while highlighting the need to further address her lipid levels through dietary changes and continued medication adherence. We outlined the plan to reassess the cholesterol profile and blood pressure at upcoming follow-up appointments to evaluate the effectiveness of these management strategies. The potential impacts of lifestyle choices on her cardiovascular risk were also addressed. I reiterated that if se delvis pain or significant changes in the rash occur, additional pain management options could be explored. Medications: New valacyclovir 1,000 mg PO TID 21 tabs 0RF 7 days Patient Instructions: - Take valacyclovir as prescribed for shingles. - Continue using triple antibiotic ointment on the rash, keep the area covered. - Maintain all current medications for hypertension, diabetes, anxiety, and depression. - Stick to dietary recommendations aimed at lowering cholesterol, specifically reducing fast food. - Monitor blood pressure regularly and attend a follow-up in one month for blood pressure and diabetes management. - Schedule follow-up in two months for repeat lipid panel. - Notify if rash pain increases or if there are any signs of secondary infection. Patient was informed and verbally consented to the use of an ambient scribe for clinic note documentation during this visit.
[2024-02-29 14:49] VITALS: BP 135/74; PULSE 101; RESP 16; TEMP 36.2; O2SAT 98; BMI 34.0
[2024-02-29 15:15] VITALS: BP 130/80
== END 2024-02-29 15:30 | disposition home or self-care (01) ==
PROVIDERS: PCP Nurse Practitioner Family; Visit Provider Nurse Practitioner Family
DX: I10 Essential (primary) hypertension (principal); E78.5 Hyperlipidemia, unspecified; B02.9 Zoster without complications; F41.8 Other specified anxiety disorders

== ENCOUNTER → 2024-02-29 14:40 | Outpatient (BNVA) | payer OTHER, SELFPAY | PROVIDERS: PCP Nurse Practitioner Family; Visit Provider Nurse Practitioner Family | DX: I10 Essential (primary) hypertension (principal); E78.5 Hyperlipidemia, unspecified; B02.9 Zoster without complications; F41.8 Other specified anxiety disorders | CPT/HCPCS: 99212 ==

== ENCOUNTER 2024-04-03 08:48 | Outpatient (AMB) | payer OTHER, SELFPAY ==
--- NOTE | 2024-04-03 08:52 | A.OFFVIS_ITS ---
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 No complaints. Last Pap/HPV was negative in 01/18 Last Mammogram was in 2022 in [facility], no records available Last Colonoscopy was in 07/20, the patient is scheduled for another colonoscopy in spring [facility] Medical History Bronchitis Elevated cholesterol Anxiety with depression Pre-diabetes Gallbladder anomaly Skin cancer (melanoma) Eczema Surgical History Hx of colonoscopy Hx of dilation and curettage Hx of cholecystectomy Hx of section H/O hand surgery Family History Father Heart disease Hypertension Hyperlipemia No family history of mental disorder Maternal Grandmother No family history of mental disorder Pancreatic cancer Social History Household Members: Spouse Housing: House Alcohol intake: current Alcohol intake frequency: does not drink Patient Tobacco Use Status: Current everyday Tobacco user Tobacco use type: Cigarette Cigarette Packs Per Day: 1 Years Smoked: 30 e-Cigarette/Vaping Use: Never Used service: No 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 Sexual orientation: Straight/Heterosexual Gender identity: Female Cognitive needs: No Hearing needs: No Vision needs: No Female Reproductive History Menstrual Total pregnancies: 2 Full term: 2 Date of last pap smear: 01/12/23 (negative pap, negative hpv ) Review of Systems Const All systems reviewed & are unremarkable except as noted in HPI and below Card Reports as per HPI Resp Reports as per HPI GI Reports as per HPI and Reports no additional complaints Reports as per HPI Physical Exam Vital Signs: Last Vital Signs BP 126/74 04/03/24 08:55 BMI result Body Mass Index 32.6 Const General: cooperative, healthy appearing and comfortable Chest Chest palpation & inspection: normal inspection of the chest and normal palpation of entire chest wall Breast/axilla inspection: normal inspection of the breasts and normal inspection of the axillae Breast/axilla palpation: normal palpation of the breasts, normal palpation of the axillae and no axillary lymphadenopathy Resp Effort & Inspection: normal respiratory effort Auscultation: clear to auscultation bilaterally Percussion: percussion normal Cardio Palpation: normal PMI Rate: regular rate Rhythm: regular rhythm Heart sounds: no murmurs and no rubs Peripheral pulses: Peripheral pulses 2+ throughout GI Inspection: Yes normal to inspection Palpation (GI): Soft to palpation, nontender, no guarding, not rigid and No hepatosplenomegaly present Percussion: Yes normal to percussion Auscultation: normal bowel sounds Rectal Exam - Female: deferred General: Yes bladder normal to palpation External Female Exam: No lesion Speculum Exam - Vagina: normal appearance of the vagina, normal palpation, normal vaginal discharge and not erythematous Speculum Exam - Cervix: normal appearance of the cervix and normal palpation Bimanual exam- vagina & uterus: normal bimanual exam, normal palpation, uterine size normal, bladder normal to palpation, consistency normal and normal palpation Bimanual Exam- Adnexa, other: normal adnexae, no masses and no tenderness Assessment & Plan Assessment & Plan (1) Well woman exam: Code(s): Z01.419 - Encounter for gynecological examination (general) (routine) without abnormal findings Category: Medical Plan: Co testing not indicated this. Counseled the patient about the recommended dietary allowance of 1200 mg of Calcium & 600 IU of vitamin D. Mammogram ordered. The patient is scheduled with GI for screening colonoscopy . The patient was instructed to perform monthly self-breast exams and schedule annual exam in a year. All questions answered and the patient verbalized understanding. Orders: Orders MM tomosynthesis screening BI Today Z12.31 - Encounter for screening mammogram for malignant neoplasm of breast Coding Level of Care Code Est Pt Prev Care 40-64y(37746) Diagnoses Well woman exam Z01.419
[2024-04-03 08:55] VITALS: BP 126/74; BMI 32.6
== END 2024-04-03 09:38 | disposition home or self-care (01) ==
PROVIDERS: PCP Internal Medicine; Visit Provider Obstetrics & Gynecology
DX: Z01.419 Encounter for gynecological examination (general) (routine) without abnormal findings (principal)
CPT/HCPCS: 99396; 99459

== ENCOUNTER → 2024-04-03 08:48 | Outpatient (BNVA) | payer OTHER, SELFPAY | PROVIDERS: PCP Internal Medicine; Visit Provider Obstetrics & Gynecology | DX: Z01.419 Encounter for gynecological examination (general) (routine) without abnormal findings (principal) | CPT/HCPCS: 99396; 99459 ==

== ENCOUNTER 2024-04-05 10:30 | Outpatient (AMB) | payer OTHER, SELFPAY ==
--- NOTE | 2024-04-05 10:37 | A.OFFPC_ITS ---
Vital Signs 04/05/24 10:50 Height 5 ft 6 in Weight 205 lb 4 oz BMI 33.1 BP 125/72 Blood Pressure Location Rt brachial Position Sitting Respiration 16 Pulse 98 Pulse Source Pulse Oximeter Temp 98.2 F Temp Source Oral Pulse Oximetry (%) 98 Oxygen Delivery Method Room Air Intake Visit Reasons: 1 mos HTN, DM Intake Note: patient here for follow up on HTN and DM Patients Transporter Required: No Is last menstrual period known: No Post menopausal: No Patient : No Allergies codeine Allergy (Mild, Verified 04/05/24 11:07) Agitated Medication List - Last Reconciled 04/05/24 by Leonel James CNP bupropion HCl SR (Wellbutrin SR) 150 mg PO QAM 90 days lisinopril 10 mg PO DAILY 30 days metformin 500 mg PO DAILY 90 days pravastatin 40 mg PO BEDTIME Tobacco use date assessed: 04/05/24 Dental Screening Dental Screen Date: 04/05/24 Did you have a dental visit in the last 12 months?: Yes Did you have a dental problem in the last 6 months where you did not have access to dental care?: No Was dental information given to patient?: Patient has dentist HPI HPI Comments History of Present Illness Details 53-year-old female presents for hyperten gian and diabetes follow-up. She admits to taking her medications as prescribed without adverse reaction. She has been making healthy dietary choices and exercising routinely. She offers no complaints and denies acute symptoms at this time. [facility] Medical History Bronchitis Elevated cholesterol Anxiety with depression Pre-diabetes Gallbladder anomaly Skin cancer (melanoma) Eczema Surgical History Hx of colonoscopy Hx of dilation and curettage Hx of cholecystectomy Hx of section H/O hand surgery Family History Father Heart disease Hypertension Hyperlipemia No family history of mental disorder Maternal Grandmother No family history of mental disorder Pancreatic cancer Social History Household Members: Spouse Housing: House Alcohol intake: current Alcohol intake frequency: does not drink Patient Tobacco Use Status: Current everyday Tobacco user Tobacco use type: Cigarette Cigarette Packs Per Day: 1 Years Smoked: 30 e-Cigarette/Vaping Use: Never Used service: No 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 1. Little interest or pleasure in doing things: not at all 2. Feeling down, depressed, or hopeless: not at all 3. Trouble falling or staying asleep, or sleeping too much: not at all 4. Feeling tired or having little energy: not at all 5. Poor appetite or overeating: not at all 6. Feeling bad about yourself - or that you are a failure or have let yourself or your family down: not at all 7. Trouble concentrating on things, such as reading the newspaper or watching television: not at all 8. Moving or speaking so slowly that other people could have noticed. Or the opposite - being so fidgety or restless that you have been moving around a lot more than usual: not at all 9. Thoughts that you would be better off or of hurting yourself in some way: not at all Total score: 0 Depression Screening Interpretation: Negative Depression Screening Done: Yes 95793 - PHQ-9 Billing: Yes Source: Developed by Drs. Ponce Morejon, Lia Pathak, Lalito Vasquez and colleagues, with an educational yaritza from [employer]. Thrive Questionnaire Date Thrive assessed: 04/05/24 I am a: Patient What is your living situation today?: I have a steady place to live Within the past 12 months, did the food you bought not last and you didn't have the money to get more?: I choose not to answer this question Within the past 12 months, did you worry whether your food would run out before you got money to buy more?: I choose not to answer this question Do you have trouble paying for medicines?: I choose not to answer this question Do you have trouble getting transportation to medical appointments?: I choose not to answer this question Do you have trouble paying your heating and electricity bill?: I choose not to answer this question Do you have trouble taking care of your child, family member or friend?: I choose not to answer this question Do you have trouble with day-to-day activities such as bathing, preparing meals, shopping, managing finances, etc.?: I choose not to answer this question Are you currently unemployed and looking for a job?: I choose not to answer this question Are you interested in more education?: I choose not to answer this question Please select the resources that you would like help with: None Currently or been in a relationship where the following occur: I choose not to a nswer THRIVE Score: 0 AUDIT C Alcohol Use Questionnaire (AUDIT-C) 1. How often do you have a drink containing alcohol?: Never Total Score: 0 YOLANDA-7 AMB Questionnaire YOLANDA-7 Date YOLANDA - 7 assessed: 04/05/24 Feeling nervous, anxious, or on edge: 0 = Not at all Not being able to stop or control worryin = Not at all Worrying too much about different things: 0 = Not at all Trouble relaxin = Not at all Being so restless that it is hard to sit still: 0 = Not at all Becoming easily annoyed or irritable: 0 = Not at all Feeling afraid as if something awful might happen: 0 = Not at all Total YOLANDA-7 score (0-4 normal; 5-9 mild; 10-14 moderate; 15-21 severe): 0 Source: Developed by Drs. Ponce Morejon, Lia Pathak, Lalito Vasquez and colleagues, with an educational yaritza from [employer]. YOLANDA-7 Assessment Billing YOLANDA-7 Assessment Tool: YOLANDA-7 Assessment 75732 Review of Systems Const Details: Const Denies chills, Denies fatigue, Denies fever(s), Denies headache(s) and Denies weakness ENT Denies dizziness and Denies headache(s) Card Denies chest pain, Denies lightheadedness, Denies dyspnea and Denies other (Palpitations) Resp Denies cough, Denies dyspnea, Denies wheezing and Denies other ( shortness of breath) GI Denies abdominal pain, Denies melena, Denies hematochezia, Denies change in bowel habits, Denies dyspepsia and Denies nausea Denies hematuria and Denies dysuria Musc Denies abnormal gait, Denies myalgias, Denies arthralgias, Denies numbness and Denies tingling Skin/Breast Denies rash, Denies unusual bruising and Denies wounds Neuro Denies abnormal gait, Denies dizziness, Denies headache(s), Denies memory loss, Denies numbness, Denies Sensory deficit (Neuro), Denies tingling and Denies weakness Psych Denies anxiety, Denies depression, Denies memory loss Endo Denies cold intolerance, Denies fatigue, Denies heat intolerance, Denies polydipsia and Denies polyuria Aller/Immun Denies wheezing Physical exam (Primary Care) Vital Signs: Last Vital Signs Temp 98.2 F 04/05/24 10:50 Pulse 98 04/05/24 10:50 Resp 16 04/05/24 10:50 BP 125/72 04/05/24 10:50 Pulse Ox 98 04/05/24 10:50 Oxygen Delivery Method Room Air 04/05/24 10:50 BMI result Body Mass Index 33.1 Tobacco/Smoking Status: Tobacco use Status Tobacco use date assessed 04/05/24 04/05/24 10:52 Patient Tobacco Use Status Current everyday Tobacco 04/05/24 10:40 Tobacco use type Cigarette 04/05/24 10:40 e-Cigarette/Vaping Use Never Used 04/05/24 10:40 PHQ-9: PHQ-9 Score PHQ-9: Total score 0 04/05/24 10:40 Depression Screening Interpretation: Negative Thrive Assessment: Date of Thrive Assessment Date Thrive assessed 04/05/24 04/05/24 10:40 Currently or been in a relationship where the following occur: I choose not to answer Const Other: General: no acute distress and well developed Nutritional Appearance: well nourished Orientation/consciousness: patient oriented x3 HENMT Head: Yes normocephalic and Yes atraumatic Eyes General: appearance normal, both eyes and all related structures Pupils: Equal, round and reactive pupils present EOM: EOMs intact bilaterally Resp Effort & Inspection: normal respiratory effort Auscultation: clear to auscultation bilaterally Cardio Rate: regular rate Rhythm: regular rhythm Heart sounds: S1 normal heart sound present, S2 normal heart sound present, no gallops, no murmurs and no rubs GI Palpation (GI): No Abdominal aortic bruit present, Soft to palpation, nontender, No hepatosplenomegaly present and No Rebound tenderness present Auscultation: normal bowel sounds General: Yes no CVA tenderness Back/Spine/Pelvis Back: no CVA tenderness Cervical Spine: cervical ROM normal and No Cervical spine tenderness Thoracic/Lumbar Spine: thoraco-lumbar ROM normal, No pain with thoraco-lumbar ROM, No thoracic spinal tenderness and No lumbar spinal tenderness Extrem General: Yes normal to inspection, No edema and No calf tenderness Skin General: warm and dry. Normal skin color. Normal skin turgor Neuro General: patient oriented x3, gait normal and no focal neuro deficit Cranial nerves: Yes Equal, round and reactive pupils present Cognition (Neuro): normal cognition Gait exam (Neuro): Normal gait present Sensory Exam: No Sensory deficit (Neuro) Psych Appearance: grossly normal Affect: normal affect Attitude: cooperative Thought process: Normal thought process present Results AMB Hemoglobin A1c AMB Hemoglobin A1c 6.2 % Last Edit by Marjorie Alatorre on 04/05/24 11:10 Coding Level of Care Code Est Pt Level 4 (28963) Diagnoses Essential hypertension I10 Type 2 diabetes mellitus E11.9 Hyperlipidemia E78.5 Clicking of right hip R29.4 Additional Codes YOLANDA-7 Assessment Billing - YOLANDA-7 Assessment Tool: YOLANDA-7 Assessment 93018 ([id number]) PHQ-9 - 64669 - PHQ-9 Billing: Yes ([id number]) Assessment & Plan Assessment & Plan (1) Essential hypertension: Code(s): I10 - Essential (primary) hypertension Category: Medical Plan: Blood pressure is 125/72, within goal of less than 130/80. Continue current treatment regimen. Follow-up in 3 months or sooner with symptoms or concerns. Verbalized understanding and agreed with treatment plan. (2) Type 2 diabetes mellitus: Code(s): E11.9 - Type 2 diabetes mellitus without complications Category: Medical Plan: A1c today 6.2%, within goal of less than 7.0%. Previous A1c was 6.6%. Continue current treatment regimen. Follow-up in 3 months. Verbalized understanding and agreed with treatment plan. (3) Hyperlipidemia: Code(s): E78.5 - Hyperlipidemia, unspecified Category: Medical Plan: Continue current treatment regimen. Fast for 10-12 hours, may drink water only, and perform lipid panel blood work 2-3 days before next visit. Verbalized understanding and agreed with the plan. (4) Clicking of right hip: Code(s): R29.4 - Clicking hip Category: Medical Plan: Recent x-ray of the right hip reviewed; normal. Recommend physical therapy. Patient will notify PCP when she is ready to be referred to PT. Orders: Orders AMB Hemoglobin A1c Today Z13.9 - Encounter for screening, unspecified Lipid Panel 3 Months E78.5 - Hyperlipidemia, unspecified
[2024-04-05 10:50] VITALS: BP 125/72; PULSE 98; RESP 16; TEMP 36.8; O2SAT 98; BMI 33.1
== END 2024-04-05 11:20 | disposition home or self-care (01) ==
PROVIDERS: PCP Nurse Practitioner Family; Visit Provider Nurse Practitioner Family
DX: I10 Essential (primary) hypertension (principal); E11.9 Type 2 diabetes mellitus without complications; E78.5 Hyperlipidemia, unspecified; R29.4 Clicking hip; Z13.9 Encounter for screening, unspecified

== ENCOUNTER → 2024-04-05 10:30 | Outpatient (BNVA) | payer OTHER, SELFPAY | PROVIDERS: PCP Nurse Practitioner Family; Visit Provider Nurse Practitioner Family | DX: I10 Essential (primary) hypertension (principal); E11.9 Type 2 diabetes mellitus without complications; E78.5 Hyperlipidemia, unspecified; R29.4 Clicking hip | CPT/HCPCS: 83036; 96127; 99212 ==

== ENCOUNTER 2024-04-28 13:54 | Outpatient (AMB) | payer OTHER, SELFPAY ==
[2024-04-28 14:07] VITALS: BP 124/70; PULSE 91; BMI 33.2
--- NOTE | 2024-04-28 14:07 | MHC.OFFVIS ---
Vital Signs 04/28/24 14:07 Height 5 ft 6 in Weight 205 lb 14.588 oz BMI 33.2 BP 124/70 Blood Pressure Location Rt brachial Position Sitting Pulse 91 Pulse Source Pulse Oximeter Intake Visit Reasons: f/u after CTA per HS Drafter Tool Design Required: No Allergies codeine Allergy (Mild, Verified 04/28/24 14:09) Agitated Medication List - Last Reconciled 04/28/24 by Hilaria Ace, ARLYN-C aspirin 81 mg PO DAILY bupropion HCl SR (Wellbutrin SR) 150 mg PO QAM 90 days lisinopril 10 mg PO DAILY 30 days metformin 500 mg PO DAILY 90 days pravastatin 40 mg PO BEDTIME HPI HPI f/u after CTA per HS: Details: Laura is a 53-year-old female with past medical history of hyperlipidemia, prediabetes, smoking, family history of CAD who was referred to Cardiology due to abnormal echocardiogram findings. It did show a regional wall motion abnormality and she was referred for a CTA of the coronary arteries which did show hemodynamically significant stenosis of the proximal LAD and proximal RCA. Today she reports she has been feeling well with no concerning symptoms. She does not get chest discomfort at rest or with activity. She does not get shortness of breath, PND, orthopnea or edema. No heart palpitations, lightheadedness, presyncope, syncope. She continues to smoke 1 pack per day. She does not engage in any routine exercise but describes herself as active. She is scheduled to have 4 teeth extracted on 05/11/2024. She tells me she does have infections. She says in the future she will be having dental implants placed. [facility] Medical History Bronchitis Elevated cholesterol Anxiety with depression Pre-diabetes Gallbladder anomaly Skin cancer (melanoma) Eczema Surgical History Hx of colonoscopy Hx of dilation and curettage Hx of cholecystectomy Hx of section H/O hand surgery Family History Father Heart disease Hypertension Hyperlipemia No family history of mental disorder Maternal Grandmother No family history of mental disorder Pancreatic cancer Social History Household Members: Spouse Housing: House Alcohol intake: current Alcohol intake frequency: does not drink Patient Tobacco Use Status: Current everyday Tobacco user Tobacco use type: Cigarette Cigarette Packs Per Day: 1 Years Smoked: 30 e-Cigarette/Vaping Use: Never Used service: No 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 Sexual orientation: Straight/Heterosexual Gender identity: Female Cognitive needs: No Hearing needs: No Vision needs: No Review of Systems Const All systems reviewed & are unremarkable except as noted in HPI and below ENT Denies dizziness Card Denies chest pain, Denies chest pain at rest, Denies chest pain with activity, Denies rapid heart rate, Denies pedal edema, Denies edema, Denies leg edema, Denies lightheadedness, Denies palpitations, Denies dyspnea, Denies dyspnea on exertion and Denies orthopnea Resp Denies cough, Denies dyspnea and Denies dyspnea on exertion GI Denies hematochezia and Denies change in stool character Musc Denies abnormal gait, Denies limited range of motion, Denies muscle cramps, Denies muscle weakness, Denies numbness, Denies radiating pain into limb, Denies stiffness and Denies tingling Neuro Denies abnormal gait, Denies dizziness, Denies numbness and Denies tingling Endo Denies palpitations Physical Exam Vital Signs: Last Vital Signs Pulse 91 04/28/24 14:07 BP 124/70 04/28/24 14:07 BMI result Body Mass Index 33.2 Const General: cooperative, healthy appearing, comfortable and no acute distress Orientation/consciousness: patient oriented x3 Neck Neck: Yes normal visual inspection and Yes no JVD Resp Effort & Inspection: normal respiratory effort Auscultation: clear to auscultation bilaterally, no crackles, no rales, no rhonchi and no wheezes Cardio Jugular venous distension: no JVD Rate: regular rate Rhythm: regular rhythm Heart sounds: S1 normal heart sound present, S2 normal heart sound present, no murmurs and no rubs Neuro General: patient oriented x3 Extrem General: Yes normal to inspection, No no pedal edema and No calf tenderness Psych Appearance: grossly normal Mental Status: mental status grossly normal Speech and movement: Normal speech and movement present Assessment & Plan Assessment & Plan (1) Coronary atherosclerosis: Code(s): I25.10 - Atherosclerotic heart disease of [place] coronary artery without angina pectoris Category: Medical Plan: No prior known history of heart disease. She reports family history of father having coronary artery bypass grafting. She has cardiac risk factors of mild obesity, hyperlipidemia, prediabetes, smoking, family history. An echocardiogram was done on 10/06/2023 showing EF 55-60%, early mild aortic stenosis with mild mitral calcification, basal inferior and basal inferior septal segments hypokinetic. EKG last visit showed sinus rhythm with nonspecific ST abnormality, rate 98. She had a CTA of the coronary arteries done on 04/05/2024 showing moderate proximal LAD stenosis, moderate stenosis of the mid circumflex and diffuse plaque throughout the RCA. Her study underwent FFR CT analysis which then showed hemodynamically significant stenosis in the proximal LAD and proximal RCA. Test results reviewed with her in detail. Diagnosis of coronary artery disease discussed. She has no anginal symptoms at this time. She will need a cardiac catheterization, question PCI in the near future. Catheterization procedure, risks, potential outcomes reviewed. At this time will have her continue on aspirin indefinitely. Labs done 02/23/2024 showed LDL 117. Will change her pravastatin 40 mg daily to high-dose statin at this time, atorvastatin 80 mg daily. Blood pressure well controlled on lisinopril. Will add a low-dose metoprolol for cardio protection, metoprolol XL 12.5 mg daily. Instructed on smoking cessation. Continue activity as tolerated. Signs and symptoms of angina reviewed with her. -she tells me she is having 4 teeth extracted on 05/11/2024, due to decay/infections. Will send message to Dr. Scherer regarding timing of her procedure. Cardiology follow-up with me 2 weeks post cardiac catheterization. Emergency care if ever needed for symptoms (2) Abnormal echocardiogram: Code(s): R93.1 - Abnormal findings on diagnostic imaging of heart and coronary circulation Category: Medical (3) Hyperlipidemia: Code(s): E78.5 - Hyperlipidemia, unspecified Category: Medical (4) Smoking: Code(s): F17.200 - Nicotine dependence, unspecified, uncomplicated Category: Social Hx (5) Elevated fasting glucose: Code(s): R73.01 - Impaired fasting glucose Category: Medical Plan Time spent on chart review, documentation, interviewed and assessed Orders: Orders Prothrombin Time INR Today I25.10 - Atherosclerotic heart disease of [place] coronary artery without angina pectoris Cardiac Cath LT w PCI Today E78.5 - Hyperlipidemia, unspecified, F17.200 - Nicotine dependence, unspecified, uncomplicated, I25.10 - Atherosclerotic heart disease of [place] coronary artery without angina pectoris, R93.1 - Abnormal findings on diagnostic imaging of heart and coronary circulation Basic Metabolic Panel Today I25.10 - Atherosclerotic heart disease of [place] coronary artery without angina pectoris Complete Blood Count Auto Diff Today I25.10 - Atherosclerotic heart disease of [place] coronary artery without angina pectoris Medications: New metoprolol succinate ER 12.5 mg (1/2 x 25 mg) PO DAILY 15 tabs 5RF atorvastatin 80 mg PO BEDTIME 30 tabs 5RF Discontinued pravastatin Discontinued Reason: Doctor's Order 40 mg PO BEDTIME 90 tabs 1RF Coding Level of Care Code Est Pt Level 4 (58712) Complex EM visit Add On G2211 Diagnoses Coronary atherosclerosis I25.10 Abnormal echocardiogram R93.1 Hyperlipidemia E78.5 Smoking F17.200 Elevated fasting glucose R73.01 Time Spent (min) 36
== END 2024-04-28 14:45 | disposition home or self-care (01) ==
PROVIDERS: PCP Nurse Practitioner Family; Visit Provider Nurse Practitioner Family
DX: I25.10 Atherosclerotic heart disease of native coronary artery without angina pectoris (principal); R93.1 Abnormal findings on diagnostic imaging of heart and coronary circulation; E78.5 Hyperlipidemia, unspecified; F17.200 Nicotine dependence, unspecified, uncomplicated; R73.01 Impaired fasting glucose
CPT/HCPCS: 99214; G2211

== ENCOUNTER → 2024-04-28 13:54 | Outpatient (BNVA) | payer OTHER, SELFPAY | PROVIDERS: PCP Nurse Practitioner Family; Visit Provider Nurse Practitioner Family | DX: I25.10 Atherosclerotic heart disease of native coronary artery without angina pectoris (principal); R93.1 Abnormal findings on diagnostic imaging of heart and coronary circulation; R73.01 Impaired fasting glucose; E78.5 Hyperlipidemia, unspecified; F17.210 Nicotine dependence, cigarettes, uncomplicated | CPT/HCPCS: 99212 ==

== ENCOUNTER → 2024-05-03 11:45 | Outpatient (BNV) | payer OTHER, SELFPAY | PROVIDERS: PCP Nurse Practitioner Family; Visit Provider Internal Medicine | DX: Z12.31 Encounter for screening mammogram for malignant neoplasm of breast (principal) | CPT/HCPCS: 77063; 77067 ==

== ENCOUNTER 2024-05-11 14:59 | Outpatient (AMB) | payer OTHER, SELFPAY ==
--- NOTE | 2024-05-11 15:01 | MHC.PC.OV ---
Vital Signs 05/11/24 15:07 Height 5 ft 6 in Weight 208 lb BMI 33.6 BP 116/86 Blood Pressure Location Lt brachial Position Sitting Respiration 14 Pulse 109 H Pulse Source Pulse Oximeter Pulse Oximetry (%) 94 Oxygen Delivery Method Room Air Intake Visit Reasons: Med review Intake Note: Medication follow up Special Certificate Dictator Required: No Allergies codeine Allergy (Mild, Verified 05/11/24 15:17) Agitated Medication List - Last Reconciled 05/11/24 by Leonel James CNP aspirin 81 mg PO DAILY atorvastatin 80 mg PO BEDTIME bupropion HCl SR (Wellbutrin SR) 150 mg PO QAM 90 days lisinopril 10 mg PO DAILY 30 days metformin 500 mg PO DAILY 90 days metoprolol succinate ER 12.5 mg (1/2 x 25 mg) PO DAILY Tobacco use date assessed: 05/11/24 Dental Screening Dental Screen Date: 04/05/24 HPI HPI Comments History of Present Illness Details 54-year-old female presents for medication management. She is unsure of which medication that was recently discontinued by her night coordinator. She is not sure why metoprolol was prescribed by Cardiology. She is followed by [facility] cardiology and was last seen on 04/28/2024. She requests help with making dietary choices to manage her hyperlipidemia, hypertension, and diabetes. She offers no complaints and denies acute symptoms at this time. [facility] Medical History Bronchitis Elevated cholesterol Anxiety with depression Pre-diabetes Gallbladder anomaly Skin cancer (melanoma) Eczema Surgical History Hx of colonoscopy Hx of dilation and curettage Hx of cholecystectomy Hx of section H/O hand surgery Family History Father Heart disease Hypertension Hyperlipemia No family history of mental disorder Maternal Grandmother No family history of mental disorder Pancreatic cancer Social History (Updated 05/11/24 @ 15:09 by Becky Zacarias CMA) Household Members: Spouse Housing: House Alcohol intake: current Alcohol intake frequency: does not drink Patient Tobacco Use Status: Current everyday Tobacco user Tobacco use type: Cigarette Cigarette Packs Per Day: 1 Years Smoked: 30 e-Cigarette/Vaping Use: Never Used service: No 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 1. Little interest or pleasure in doing things: not at all 2. Feeling down, depressed, or hopeless: not at all 3. Trouble falling or staying asleep, or sleeping too much: not at all 4. Feeling tired or having little energy: not at all 5. Poor appetite or overeating: not at all 6. Feeling bad about yourself - or that you are a failure or have let yourself or your family down: not at all 7. Trouble concentrating on things, such as reading the newspaper or watching television: not at all 8. Moving or speaking so slowly that other people could have noticed. Or the opposite - being so fidgety or restless that you have been moving around a lot more than usual: not at all 9. Thoughts that you would be better off or of hurting yourself in some way: not at all Total score: 0 Depression Screening Interpretation: Negative Depression Screening Done: Yes 33308 - PHQ-9 Billing: Yes Source: Developed by Drs. Ponce Morejon, Lia Pathak, Lalito Vasquez and colleagues, with an educational yaritza from [employer]. Thrive Questionnaire Date Thrive assessed: 04/05/24 YOLANDA-7 AMB Questionnaire YOLANDA-7 Date YOLANDA - 7 assessed: 05/11/24 Feeling nervous, anxious, or on edge: 1 = Several days Not being able to stop or control worryin = Not at all Worrying too much about different things: 0 = Not at all Trouble relaxin = Not at all Being so restless that it is hard to sit still: 0 = Not at all Becoming easily annoyed or irritable: 1 = Several days Feeling afraid as if something awful might happen: 1 = Several days Total YOLANDA-7 score (0-4 normal; 5-9 mild; 10-14 moderate; 15-21 severe): 3 Source: Developed by Drs. Ponce Morejon, Lalito Gilbert and colleagues, with an educational yaritza from [employer]. YOLANDA-7 Assessment Billing YOLANDA-7 Assessment Tool: YOLANDA-7 Assessment 69031 Review of Systems Const Details: All systems reviewed and are unremarkable except as noted in HPI Physical exam (Primary Care) Vital Signs: Last Vital Signs Pulse 109 H 05/11/24 15:07 Resp 14 05/11/24 15:07 BP 116/86 05/11/24 15:07 Pulse Ox 94 05/11/24 15:07 Oxygen Delivery Method Room Air 05/11/24 15:07 BMI result Body Mass Index 33.6 Tobacco/Smoking Status: Tobacco use Status Tobacco use date assessed 05/11/24 05/11/24 15:09 Patient Tobacco Use Status Current everyday Tobacco 05/11/24 15:09 Tobacco use type Cigarette 05/11/24 15:09 e-Cigarette/Vaping Use Never Used 05/11/24 15:09 PHQ-9: PHQ-9 Score PHQ-9: Total score 0 05/11/24 15:09 Depression Screening Interpretation: Negative Thrive Assessment: Date of Thrive Assessment Date Thrive assessed 04/05/24 05/11/24 15:03 Const Other: General: no acute distress and well developed Nutritional Appearance: well nourished Orientation/consciousness: patient oriented x3 HENMT Head: Yes normocephalic and Yes atraumatic Eyes General: appearance normal, both eyes and all related structures Pupils: Equal, round and reactive pupils present EOM: EOMs intact bilaterally Resp Effort & Inspection: normal respiratory effort Auscultation: clear to auscultation bilaterally Cardio Rate: regular rate Rhythm: regular rhythm Heart sounds: S1 normal heart sound present, S2 normal heart sound present, no gallops, no murmurs and no rubs GI Palpation (GI): No Abdominal aortic bruit present, Soft to palpation, nontender, No hepatosplenomegaly present and No Rebound tenderness present Auscultation: normal bowel sounds General: Yes no CVA tenderness Back/Spine/Pelvis Back: no CVA tenderness Cervical Spine: cervical ROM normal and No Cervical spine tenderness Thoracic/Lumbar Spine: thoraco-lumbar ROM normal, No pain with thoraco-lumbar ROM, No thoracic spinal tenderness and No lumbar spinal tenderness Extrem General: Yes normal to inspection, No edema and No calf tenderness Skin General: warm and dry. Normal skin color. Normal skin turgor Neuro General: patient oriented x3, gait normal and no focal neuro deficit Cranial nerves: Yes Equal, round and reactive pupils present Cognition (Neuro): normal cognition Gait exam (Neuro): Normal gait present Sensory Exam: No Sensory deficit (Neuro) Psych Appearance: grossly normal Affect: normal affect Attitude: cooperative Thought process: Normal thought process present Coding Level of Care Code Est Pt Level 3 (09810) Diagnoses Essential hypertension I10 Hyperlipidemia E78.5 Type 2 diabetes mellitus E11.9 Obesity (BMI 30-39.9) E66.9 Additional Codes YOLANDA-7 Assessment Billing - YOLANDA-7 Assessment Tool: YOLANDA-7 Assessment 07827 ([id number]) PHQ-9 - 13719 - PHQ-9 Billing: Yes ([id number]) Assessment & Plan Assessment & Plan (1) Essential hypertension: Code(s): I10 - Essential (primary) hypertension Category: Medical Plan: Blood pressure is controlled. Continue current treatment regimen. Informed patient that her night coordinator prescribed a low-dose metoprolol for cardio protection at her recent visit; metoprolol XL 12.5 mg daily. Referred to violent crimes detective to help with diet to manage her hypertension, diabetes, hyperlipidemia, obesity. Follow-up as planned for hypertension, diabetes, hyperlipidemia or sooner with symptoms or concerns. Verbalized understanding and agreed with treatment plan. (2) Hyperlipidemia: Code(s): E78.5 - Hyperlipidemia, unspecified Category: Medical Plan: Pravastatin 40 mg daily was changed to high-dose statin, atorvastatin 80 mg by her night coordinator. Patient advised to stop taking pravastatin and continue to take atorvastatin as prescribed. Advised to limit foods high in saturated fat and avoid foods high in trans fat. Routine exercise encouraged. Referred to violent crimes detective. Follow-up as planned. Verbalized understanding and agreed with treatment plan. (3) Type 2 diabetes mellitus: Code(s): E11.9 - Type 2 diabetes mellitus without complications Category: Medical Plan: Continue current treatment regimen. ADA diet and routine exercise encouraged. Referred to violent crimes detective. Follow-up as planned. Verbalized understanding and agreed with treatment plan. (4) Obesity (BMI 30-39.9): Code(s): E66.9 - Obesity, unspecified Category: Medical Plan: She currently weighs 208 lb, BMI is 33.6. Healthy diet and routine exercise encouraged. Referred to [facility] violent crimes detective. Orders: Referrals G[employer] Farm[employer] Nutrition Referral E11.9 - Type 2 diabetes mellitus without complications, E66.9 - Obesity, unspecified, E78.5 - Hyperlipidemia, unspecified, I10 - Essential (primary) hypertension
[2024-05-11 15:07] VITALS: BP 116/86; PULSE 109; RESP 14; O2SAT 94; BMI 33.6
== END 2024-05-11 15:51 | disposition home or self-care (01) ==
LOC: HO.HMCFM 14:59
PROVIDERS: PCP Nurse Practitioner Family; Visit Provider Nurse Practitioner Family
DX: E11.69 Type 2 diabetes mellitus with other specified complication (principal); I10 Essential (primary) hypertension; E66.9 Obesity, unspecified; Z68.33 Body mass index [BMI] 33.0-33.9, adult; E78.5 Hyperlipidemia, unspecified

== ENCOUNTER → 2024-05-11 14:59 | Outpatient (BNVA) | payer OTHER, SELFPAY | PROVIDERS: PCP Nurse Practitioner Family; Visit Provider Nurse Practitioner Family | DX: I10 Essential (primary) hypertension (principal); E78.5 Hyperlipidemia, unspecified; E66.9 Obesity, unspecified; E11.9 Type 2 diabetes mellitus without complications | CPT/HCPCS: 96127; 99212 ==

== ENCOUNTER 2024-05-31 10:52 | Outpatient (AMB) | payer OTHER, SELFPAY ==
--- NOTE | 2024-05-31 11:00 | A.OFFVIS_ITS ---
VS Expanded 05/31/24 11:02 06/08/24 22:13 Height 5 ft 6 in 5 ft 6 in Weight 203 lb 14.841 oz 204 lb BMI 32.9 32.9 Intake Visit Reasons: Obesity Allergies codeine Allergy (Mild, Verified 05/11/24 15:17) Agitated Nutrition Presentation Details: Pt presents for MNT for T2DM, obesity, hyperlipidemia , HTN Food frequency fruits: 0-1/d vex/wk milk: 1-2/d fish :0-1/d starches >20 /d beverages: water/milk/juice >24 oz/d pastries and similar >1/d Etoh/smoking --- PA:ADL BS Monitoring Most Recent Diabetes Results: Creatinine 0.70 mg/dL (0.5-1.4) 05/01/24 Blood Urea Nitrogen 12 mg/dL (9-16) 05/01/24 Sodium 142 mmol/L (135-145) 05/01/24 Potassium 4.3 mmol/L (3.3-5.1) 05/01/24 Chloride 108 mmol/L (96-108) 05/01/24 Carbon Dioxide 25 mmol/L (22-29) 05/01/24 Calcium 10.1 mg/dL (8.4-10.2) 05/01/24 AST 28 U/L (5-31) 05/01/24 ALT 37 U/L (0-31) H 05/01/24 Total Protein 8.0 g/dL (6.5-8.0) 05/01/24 Albumin 4.3 g/dL (3.5-5.0) 05/01/24 RYC-Xsjyhez-Xq.Jeor Equation Height: 5 ft 6 in Weight: 204 lb Resting Metabolic Rate: 1535.63 Calculated Activity Level: Sedentary Calories Needed to Maintain Weight: 1842.76 Diagnosis Nutrition problem #1: excessive energy intake As related to (etiology) #1: excess energy intake As evidenced by (sign/symptom) #1: high BMI (32.9 06/20)) [facility] Medical History Bronchitis Elevated cholesterol Anxiety with depression Pre-diabetes Gallbladder anomaly Skin cancer (melanoma) Eczema Surgical History Hx of colonoscopy Hx of dilation and curettage Hx of cholecystectomy Hx of section H/O hand surgery Family History Father Heart disease Hypertension Hyperlipemia No family history of mental disorder Maternal Grandmother No family history of mental disorder Pancreatic cancer Social History (Updated 05/11/24 @ 15:09 by Becky Zacarias CMA) Household Members: Spouse Housing: House Alcohol intake: current Alcohol intake frequency: does not drink Patient Tobacco Use Status: Current everyday Tobacco user Tobacco use type: Cigarette Cigarette Packs Per Day: 1 Years Smoked: 30 e-Cigarette/Vaping Use: Never Used service: No 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 Sexual orientation: Straight/Heterosexual Gender identity: Female Cognitive needs: No Hearing needs: No Vision needs: No Assessment & Plan Assessment & Plan (1) Type 2 diabetes mellitus: Code(s): E11.9 - Type 2 diabetes mellitus without complications Category: Medical Plan: Wt: 93 Kg ( 06/20 ) Est kcal needs as per MSJ: 1800 (40% carb, 30% protein/fat) Est fluid needs as per 25-30 ml/d: 2800 Est prot per day as per 1 g/kg bw: 93 Recommend fiber intake : 8-10 g per day and gradually increase to 25-28 g per day for women and 35-38 g for men or as tolerated Recommend sodium intake per day : less than 2000 mg Educated patient on: ( R = reviewed V = verbalizes understanding N/R = needs review N/A = not applicable * Food sources of carbohydrate, adequate serving sizes and its role in various health conditions: R * Differences between complex carbohydrates a simple carbohydrates, role of fiber in diet: R * Lean protein sources of foods: R * Differences between types of fats and role in diet (mono on saturated fat fatty acids, saturated fatty acids, trans fats): R V N/R * Food sources of sodium in salt and healthy modifications for heart health in kidney health: R V R/V * Vitamins and minerals: R V N/R * Healthy plate method concept: R V N/R * Physical activity: Benefits a precaution: R V N/R * Hypoglycemia protocol (rule of 15): R V N/R * Dietary prevention of Hyperglycemia: R Patient Instructions: Practice mindful eating Choose whole grain foods, Work on reducing total carb to 45-60 g carb at meal, 3meals/d and 0-20 g carb as snack , limit to 2 snacks/d Coding Level of Care Code Nutr Indiv Intake (39633) Diagnoses Type 2 diabetes mellitus E11.9 Time Spent (min) 30
[2024-05-31 11:02] VITALS: BMI 32.9
[2024-06-08 22:13] VITALS: BMI 32.9
== END 2024-05-31 13:38 | disposition home or self-care (01) ==
PROVIDERS: PCP Nurse Practitioner Family; Visit Provider Dietitian, Registered
DX: E11.9 Type 2 diabetes mellitus without complications (principal)

== ENCOUNTER → 2024-05-31 10:52 | Outpatient (BNVA) | payer OTHER, SELFPAY | PROVIDERS: PCP Nurse Practitioner Family; Visit Provider Dietitian, Registered | DX: E66.9 Obesity, unspecified (principal); E11.9 Type 2 diabetes mellitus without complications; E78.5 Hyperlipidemia, unspecified; I10 Essential (primary) hypertension; Z71.2 Person consulting for explanation of examination or test findings; Z68.32 Body mass index [BMI] 32.0-32.9, adult | CPT/HCPCS: 97802 ==

== ENCOUNTER 2024-08-03 14:02 | Outpatient (AMB) | payer OTHER, SELFPAY ==
--- NOTE | 2024-08-03 14:06 | A.OFFVIS_ITS ---
Vital Signs 3 08/03/24 14:08 Height 5 ft 5 in Weight 209 lb BMI 34.8 BP 120/80 Blood Pressure Location Rt brachial Position Sitting Pulse 106 H Pulse Source Pulse Oximeter Pulse Oximetry (%) 97 Oxygen Delivery Method Room Air Intake Visit Reasons: 11 mo F/U Intake Note: ESTABLISHED PATIENT for repeat colo screening with hx of TA polypectomy. CC; Pt denies any GI sx or concerns at this time. 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 She did not like the volume so we will need to fight for a lower volume prep. She is agreeable to a 1 year follow-up. The procedure was well tolerated. The results were explained and the patient is agreeable to the follow-up interval as stated. It took a couple of weeks for her bowels to return to normal. Education was provided to tell any 1st degree relatives about their findings to be sure that they are screened by age 45. Educated that they will be put on a recall list when it is time for their repeat scope but should they move out of state or away from the hospital they will need to remember along with their primary to repeat the procedure in a timely fashion to avoid any adverse complications. Return office visit in 9 months Laboratory Tests 05/01/24 15:02 WBC 13.0 H Hgb 14.5 Hct 42.4 Plt Count 229 D Estimated GFR > 60 Total Bilirubin 0.4 AST 28 ALT 37 H Alkaline Phosphatase 92 TSH 0.30 L Free T4 1.01 TODAY'S VISIT She has severe N/V with the PEG prep and consequently did not clear out well, so trying to get low volume prep like Suprep. There are no prior problems with anesthesia or sedation. She is seeing cardiology in [place] and they are considering if she needs a stent, so this could interrupt the colonoscopy scheduling depending on when/if it is placed and she denies respiratory problems.She has no cardiac sx. No ID problems. There is no known FHX of CRC or polyps. [facility] Medical History Bronchitis Elevated cholesterol Anxiety with depression Pre-diabetes Gallbladder anomaly Skin cancer (melanoma) Eczema Surgical History History of dental surgery Hx of colonoscopy Hx of dilation and curettage Hx of cholecystectomy Hx of section H/O hand surgery Family History Father Heart disease Hypertension Hyperlipemia No family history of mental disorder Maternal Grandmother No family history of mental disorder Pancreatic cancer Social History Household Members: Spouse Housing: House Alcohol intake: current Alcohol intake frequency: does not drink Patient Tobacco Use Status: Current everyday Tobacco user Tobacco use type: Cigarette Cigarette Packs Per Day: 1 Years Smoked: 30 e-Cigarette/Vaping Use: Never Used service: No 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 Sexual orientation: Straight/Heterosexual Gender identity: Female Cognitive needs: No Hearing needs: No Vision needs: No Review of Systems Const Denies fatigue, Denies fever(s), Denies night sweats, Denies poor appetite and Denies weight loss ENT Reports Normal hearing present, Denies dental pain, Denies dysphagia, Denies hearing loss, Denies mouth pain, Denies odynophagia, Denies throat swelling, Denies tongue swelling and Reports other (Dentition adequate) Card Reports no additional complaints Resp Reports no additional complaints GI Details: Denies abdominal pain, Denies melena, Denies bloating, Denies hematochezia, Denies constipation, Denies GI cramping, Denies dysphagia, Denies excessive flatus, Denies early satiety, Denies heartburn, Denies diarrhea, Denies nausea, Denies odynophagia, Denies vomiting and Denies hematemesis Skin/Breast Denies pruritus, Denies lesions, Denies rash and Denies jaundice Neuro Reports Normal hearing present and Denies Abnormal speech present Endo Denies fatigue Aller/Immun Denies throat swelling and Denies tongue swelling Physical Exam Vital Signs: Last Vital Signs Pulse 106 H 08/03/24 14:08 BP 120/80 08/03/24 14:08 Pulse Ox 97 08/03/24 14:08 Oxygen Delivery Method Room Air 08/03/24 14:08 BMI result Body Mass Index 34.8 Const General: cooperative, no acute distress, well developed and well groomed Nutritional Appearance: well nourished and obese Orientation/consciousness: oriented to person, oriented to place and oriented to time Limitations: No language barrier HEENT Head: Yes normocephalic and Yes atraumatic Eyes General: appearance normal, both eyes and all related structures Pupils: Equal, round and reactive pupils present Neck Neck: Yes normal visual inspection and Yes no lymphadenopathy Thyroid: Thyroid normal Resp Effort & Inspection: normal respiratory effort and able to speak in complete sentences Auscultation: clear to auscultation bilaterally Cardio Rate: regular rate Rhythm: regular rhythm Heart sounds: Murmur heart sound present systolic (Aortic) late Peripheral pulses: radial pulses present and posterior tibial pulses present GI Inspection: No distended, Yes Abdominal panniculus present, Yes obesity and Yes scar Palpation (GI): Soft to palpation, nontender, no guarding, not rigid and No hepatosplenomegaly present Percussion: Yes normal to percussion Auscultation: normal bowel sounds Rectal Exam - Female: deferred Abdomen image: 2 1. Surgical scars 2. Skin General skin exam: no rashes or lesions noted, turgor normal, skin not dry, no jaundice, No spider nevi and no striae Rashes: no rashes Nails: normal Neuro General: oriented to person, oriented to place and oriented to time Cranial nerves: Yes Equal, round and reactive pupils present and Yes Normal hearing present Speech: No Abnormal speech present Extrem General: Yes normal to inspection, No clubbing, No cyanosis and No edema Psych Appearance: grossly normal and well kempt Mental Status: mental status grossly normal Speech and movement: Normal speech and movement present Affect: normal affect Attitude: cooperative Thought process: Normal thought process present and not confabulating Thought content: Normal thought content present Insight: Fair insight present (Psych) Judgement: Fair judgement present (Psych) Results Reviewed Results Reviewed: Laboratory Tests 05/01/24 15:02 WBC 13.0 H Hgb 14.5 Hct 42.4 Plt Count 229 D Estimated GFR > 60 Total Bilirubin 0.4 AST 28 ALT 37 H Alkaline Phosphatase 92 TSH 0.30 L Free T4 1.01 Assessment & Plan Assessment & Plan (1) Pre-op examination: Code(s): Z01.818 - Encounter for other preprocedural examination Category: Medical (2) Tubular adenoma of colon: Comment: 07/2023 SCOPE= TA, POOR PREP REPEAT IN 1 YEAR Code(s): D12.6 - Benign neoplasm of colon, unspecified Category: Medical Plan She has severe N/V with the PEG prep and consequently did not clear out well, so trying to get low volume prep like Suprep. There are no prior problems with anesthesia or sedation. She is seeing cardiology in [place] and they are considering if she needs a stent, so this could interrupt the colonoscopy scheduling depending on when/if it is placed and she denies respiratory problems.She has no cardiac sx. No ID problems. There is no known FHX of CRC or polyps. Orders: Orders 2 Colonoscopy - GI Use Only Today Z01.818 - Encounter for other preprocedural examination Medications: New 2 sodium,potassium,mag sulfates 17.5-3.13-1.6 gram (Suprep Bowel Prep Kit) 480 mL orally; FOR COLONOSCOPY PREP 354 mL 0RF Coding Level of Care Code Est Pt Level 3 (20620) Diagnoses Pre-op examination Z01.818 Tubular adenoma of colon D12.6
[2024-08-03 14:08] VITALS: BP 120/80; PULSE 106; O2SAT 97; BMI 34.8
== END 2024-08-03 14:37 | disposition home or self-care (01) ==
LOC: HO.HGI 14:03
PROVIDERS: PCP Nurse Practitioner Family; Visit Provider Nurse Practitioner
DX: Z01.818 Encounter for other preprocedural examination (principal); Z12.11 Encounter for screening for malignant neoplasm of colon; Z86.0101 Personal history of adenomatous and serrated colon polyps
CPT/HCPCS: 99212

== ENCOUNTER → 2024-08-03 14:02 | Outpatient (BNVA) | payer OTHER, SELFPAY | PROVIDERS: PCP Nurse Practitioner Family; Visit Provider Nurse Practitioner | DX: Z01.818 Encounter for other preprocedural examination (principal); D12.6 Benign neoplasm of colon, unspecified | CPT/HCPCS: 99212 ==

== ENCOUNTER 2024-12-14 08:10 | Outpatient (REF) | payer OTHER, SELFPAY ==
[2024-12-14 12:00] LABS: Anion Gap 14 (12-20); Blood Urea Nitrogen 14 mg/dL (9-16); Calcium 10.1 mg/dL (8.4-10.2); Carbon Dioxide 24 mmol/L (22-29); Chloride 108 mmol/L (96-108); Cholesterol 155 mg/dL (<200); Estimated Glomerular Filt Rate > 60; HDL Cholesterol 41 mg/dL (>40); Potassium 4.3 mmol/L (3.3-5.1); Sodium 142 mmol/L (135-145); Triglycerides 160 mg/dL (<150)
[2024-12-14 12:11] LABS: Appearance Urine Clear; Glucose Urine UA Negative (Negative); PH 5.5 (5.0-9.0); Specific Gravity - Urine 1.015 (1.005-1.025); UMIC TRIGGER UACC YES
[2024-12-14 12:15] LABS: UACC Culture Trigger YES
== END 2024-12-14 08:11 | disposition home or self-care (01) ==
LOC: HO.WFDLDS 08:10
PROVIDERS: Nurse Practitioner Family; Visit Provider Nurse Practitioner Family
DX: I25.10 Atherosclerotic heart disease of native coronary artery without angina pectoris (principal); E78.5 Hyperlipidemia, unspecified; R79.89 Other specified abnormal findings of blood chemistry
CPT/HCPCS: 36415; 80048; 80061; 81001; 84443; 87086

== ENCOUNTER 2024-12-18 07:56 | Outpatient (AMB) | payer OTHER, SELFPAY ==
--- NOTE | 2024-12-18 08:22 | MHC.PC.OV ---
Vital Signs 12/18/24 08:24 Height 5 ft 5 in Weight 216 lb 2 oz BMI 36.0 BP 126/63 Blood Pressure Location Rt brachial Position Sitting Respiration 16 Pulse 80 Pulse Source Pulse Oximeter Temp 97.8 F Temp Source Oral Pulse Oximetry (%) 98 Oxygen Delivery Method Room Air Intake Visit Reasons: Annual PE Intake Note: patient here for CPE Hypoid Gear Tester Required: No Is last menstrual period known: No Post menopausal: No Patient : No Allergies codeine Allergy (Mild, Verified 12/18/24 08:29) Agitated Medication List - Last Reconciled 12/18/24 by Leonel James CNP aspirin 81 mg PO DAILY atorvastatin 80 mg PO BEDTIME bupropion HCl SR (Wellbutrin SR) 150 mg PO QAM 90 days lisinopril 10 mg PO DAILY metformin 500 mg PO DAILY 90 days metoprolol succinate ER 12.5 mg (1/2 x 25 mg) PO DAILY sodium,potassium,mag sulfates 17.5-3.13-1.6 gram (Suprep Bowel Prep Kit) 480 mL orally; FOR COLONOSCOPY PREP Tobacco use date assessed: 12/18/24 Dental Screening Dental Screen Date: 12/18/24 Did you have a dental visit in the last 12 months?: Yes Did you have a dental problem in the last 6 months where you did not have access to dental care?: No Was dental information given to patient?: Patient has dentist HPI HPI Comments History of Present Illness Details 54-year-old female presents for an extended physical exam. She admits to taking her medications as prescribed without adverse reactions. Reports controlled anxiety and depressive symptoms on current treatment regimen. Acute issue(s) - None Past Medical History - HTN, HLD, DM, cardiovascular disease, leukocytosis, bronchitis, eczema, skin cancer Social History - Smokes a pack of cigarettes daily x 30 years. Does not vape. Does not drink alcohol. Denies recreational drug use - Has been making healthy dietary choices. Exercises at times. Reports difficulty maintaining sleep, sleeps an average of 4 hours she snores Health maintenance - Last eye exam was 2 years ago. Referred to Ophthalmology for routine eye exam - Last dental visit was last week - Last tetanus vaccine was more than 10 years ago; receives vaccine today - Has not been vaccinated for the flu this season; receives influenza vaccine today - She has not been vaccinated for shingles. Encouraged to get vaccinated for shingles at the local pharmacy - Last pap smear test was in 01/12/2023: Normal - Last mammogram was in 05/03/2024: Negative - Last colonoscopy was in 07/22/2023: Tubular adenoma - She has never been followed by Podiatry Specialists -[facility] [place] Cardiology [facility] Medical History Bronchitis Elevated cholesterol Anxiety with depression Pre-diabetes Gallbladder anomaly Skin cancer (melanoma) Eczema Surgical History History of dental surgery Hx of colonoscopy Hx of dilation and curettage Hx of cholecystectomy Hx of section H/O hand surgery Family History Father Heart disease Hypertension Hyperlipemia No family history of mental disorder Maternal Grandmother No family history of mental disorder Pancreatic cancer Social History Household Members: Spouse Housing: House Alcohol intake: current Alcohol intake frequency: does not drink Patient Tobacco Use Status: Current everyday Tobacco user Tobacco use type: Cigarette Cigarette Packs Per Day: 1 Years Smoked: 30 e-Cigarette/Vaping Use: Never Used Second Hand Smoke Exposure: No service: No 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 1. Little interest or pleasure in doing things: not at all 2. Feeling down, depressed, or hopeless: not at all 3. Trouble falling or staying asleep, or sleeping too much: several days 4. Feeling tired or having little energy: more than half the days 5. Poor appetite or overeating: more than half the days 6. Feeling bad about yourself - or that you are a failure or have let yourself or your family down: not at all 7. Trouble concentrating on things, such as reading the newspaper or watching television: not at all 8. Moving or speaking so slowly that other people could have noticed. Or the opposite - being so fidgety or restless that you have been moving around a lot more than usual: not at all 9. Thoughts that you would be better off or of hurting yourself in some way: not at all Total score: 5 Depression Screening Interpretation: Positive Depression Screening Follow-up: Existing condition and In treatment Depression Screening Done: Yes 36981 - PHQ-9 Billing: Yes Source: Developed by Drs. Ponce Morejon, Lia Pathak, Lalito Vasquez and colleagues, with an educational yaritza from [employer]. Thrive Questionnaire Date Thrive assessed: 12/18/24 I am a: Patient What is your living situation today?: I have a steady place to live Within the past 12 months, did the food you bought not last and you didn't have the money to get more?: I choose not to answer this question Within the past 12 months, did you worry whether your food would run out before you got money to buy more?: I choose not to answer this question Do you have trouble paying for medicines?: I choose not to answer this question Do you have trouble getting transportation to medical appointments?: I choose not to answer this question Do you have trouble paying your heating and electricity bill?: I choose not to answer this question Do you have trouble taking care of your child, family member or friend?: I choose not to answer this question Do you have trouble with day-to-day activities such as bathing, preparing meals, shopping, managing finances, etc.?: I choose not to answer this question Are you currently unemployed and looking for a job?: I choose not to answer this question Are you interested in more education?: I choose not to answer this question Please select the resources that you would like help with: None Currently or been in a relationship where the following occur: I choose not to answer THRIVE Score: 0 AUDIT C Alcohol Use Questionnaire (AUDIT-C) 1. How often do you have a drink containing alcohol?: Monthly or less 2. How many drinks containing alcohol do you have on a typical day when you are drinking?: 1 or 2 3. How often do you have six or more drinks on one occasion?: Never Total Score: 1 Score Reviewed/Action Taken: Yes YOLANDA-7 AMB Questionnaire YOLANAD-7 Date YOLANDA - 7 assessed: 12/18/24 Feeling nervous, anxious, or on edge: 1 = Several days Not being able to stop or control worryin = Several days Worrying too much about different things: 1 = Several days Trouble relaxin = Not at all Being so restless that it is hard to sit still: 0 = Not at all Becoming easily annoyed or irritable: 1 = Several days Feeling afraid as if something awful might happen: 0 = Not at all Total YOLANDA-7 score (0-4 normal; 5-9 mild; 10-14 moderate; 15-21 severe): 4 Source: Developed by Drs. Ponce Morejon, Lia Pathak, Lalito Vasquez and colleagues, with an educational yaritza from [employer]. YOLANDA-7 Assessment Billing YOLANDA-7 Assessment Tool: YOLANDA-7 Assessment 00421 Review of Systems Const Details: Denies chills, Denies fatigue, Denies fever(s), Denies headache(s) and Denies weakness HEENT Denies change in vision, Denies dizziness, Denies headache(s), Denies hearing loss, Denies nasal congestion, Denies sinus pain, Denies sinus pressure and Denies sore throat Card Denies chest pain, Denies lightheadedness, Denies dyspnea and Denies other (palpitations) Resp Denies cough, Denies dyspnea and Denies wheezing GI Denies abdominal pain, Denies melena, Denies hematochezia, Denies change in bowel habits, Denies dyspepsia and Denies nausea Denies hematuria and Denies dysuria Musc Denies abnormal gait, Denies myalgias, Denies arthralgias, Denies numbness and Denies tingling Skin/Breast Denies rash, Denies unusual bruising and Denies wounds Neuro Denies abnormal gait, Denies dizziness, Denies headache(s), Denies memory loss, Denies numbness, Denies Sensory deficit (Neuro), Denies tingling and Denies weakness Psych Denies anxiety, Denies depression and Denies memory loss Endo Denies cold intolerance, Denies fatigue, Denies heat intolerance, Denies polydipsia and Denies polyuria Todd/Lymph Denies easy bleeding and Denies easy bruising Aller/Immun Denies wheezing Physical exam (Primary Care) Vital Signs: Last Vital Signs Temp 97.8 F 12/18/24 08:24 Pulse 80 12/18/24 08:24 Resp 16 12/18/24 08:24 BP 126/63 12/18/24 08:24 Pulse Ox 98 12/18/24 08:24 Oxygen Delivery Method Room Air 12/18/24 08:24 BMI result Body Mass Index 36.0 Tobacco/Smoking Status: Tobacco use Status Tobacco use date assessed 12/18/24 12/18/24 08:27 Patient Tobacco Use Status Current everyday Tobacco 12/18/24 08:23 Tobacco use type Cigarette 12/18/24 08:23 e-Cigarette/Vaping Use Never Used 12/18/24 08:23 PHQ-9: PHQ-9 Score PHQ-9: Total score 5 12/18/24 08:56 Depression Screening Interpretation: Positive Depression Screening Follow-up: Existing condition and In treatment Thrive Assessment: Date of Thrive Assessment Date Thrive assessed 12/18/24 12/18/24 08:29 Currently or been in a relationship where the following occur: I choose not to answer Const Other: General: no acute distress, well developed, alert and awake Nutritional Appearance: well nourished Orientation/consciousness: patient oriented x3 HENMT Head: Yes normocephalic and Yes atraumatic Ears: hearing grossly normal bilaterally and TM's normal bilaterally General nose exam: Normal external nose present and Normal nares present Mouth: Normal oral and palatal mucosa present and moist mucous membranes Teeth and gingiva: dentition normal Throat: Yes oropharynx normal Eyes Pupils: Equal, round and reactive pupils present and Pupil accommodation reflex normal EOM: EOMs intact bilaterally Neck Neck: Yes normal visual inspection, Yes no lymphadenopathy and Yes trachea midline Thyroid: Thyroid normal Carotids: no bruits Lymphatic: no lymphadenopathy noted Chest Chest palpation & inspection: normal inspection of the chest Resp Effort & Inspection: normal respiratory effort Auscultation: clear to auscultation bilaterally Cardio Rate: regular rate Rhythm: regular rhythm Heart sounds: S1 normal heart sound present, S2 normal heart sound present, no gallops, no murmurs and no rubs Bruits: no abdominal aortic bruits and no carotid bruits GI Palpation (GI): No Abdominal aortic bruit present, Soft to palpation, nontender, No hepatosplenomegaly present and No Rebound tenderness present Auscultation: normal bowel sounds General: Yes no CVA tenderness Back/Spine/Pelvis Back: no CVA tenderness Cervical Spine: cervical ROM normal and No Cervical spine tenderness Thoracic/Lumbar Spine: thoraco-lumbar ROM normal, No pain with thoraco-lumbar ROM, No thoracic spinal tenderness and No lumbar spinal tenderness Skin General: warm and dry. Normal skin color. Normal skin turgor Lesions: no lesions Rashes: no rashes Trauma: no lacerations or abrasions Wounds: no wounds Nails: normal Neuro General: patient oriented x3, gait normal and CN's II-XI intact bilaterally Cranial nerves: Yes Equal, round and reactive pupils present Cognition (Neuro): normal cognition Gait exam (Neuro): Normal gait present Motor exam (neuro): 5/5 motor strength present throughout Sensory Exam: No Sensory deficit (Neuro) Deep tendon reflexes (DTR's): Right patellar reflex intensity grade: 2+ and Left patellar reflex intensity grade: 2+ Extrem General: Yes normal to inspection, No edema and No calf tenderness Psych Appearance: grossly normal Affect: normal affect Attitude: cooperative Thought process: Normal thought process present Office Procedures Flu Questionnaire Does the patient have a severe egg allergy?: No Does the patient have severe life threatening allergies?: No Does the patient have a fever or illness today?: No Has the patient ever had Guillain-Winder Syndrome?: No Has the patient ever had any past reaction to a flu shot?: No Results AMB Hemoglobin A1c AMB Hemoglobin A1c 6.6 % Last Edit by Marjorie Alatorre MA on 12/18/24 08:42 Immunizations Fluarix [id number] (PF) 45 mcg (15 mcg x 3)/0.5 mL IM syringe Performing Provider: Leonel James CNP Performing Location: [facility] [place] Family Medicine Administered by: Rosalinda Rendon RN on 12/18/24 08:54 Dose Route Admin Location Dispensed Lot Number Expiration Date NDC Academic Affairs Coordinator 0.5 mL IM Left Deltoid 0.5 mL [id number] 09/25/25 [id number] [employer] VIS Given Date VIS Provided VIS Publication Date 12/18/24 Single Vaccine 24 Eligibility Eligibility Date Funding Source Not [facility] Eligible 12/18/24 Private Boostrix Tdap 2.5 Lf unit-8 mcg-5 Lf/0.5 mL intramuscular syringe Performing Provider: Leonel James CNP Performing Location: [facility] [place] Family Medicine Administered by: Rosalinda Rendon RN on 12/18/24 08:54 Dose Route Admin Location Dispensed Lot Number Expiration Date NDC Academic Affairs Coordinator 0.5 mL IM Left Deltoid 0.5 mL [id number] 01/31/27 75083-991-35 [employer] Total Dispensed Waste 0.5 mL 0 % VIS Given Date VIS Provided VIS Publication Date 12/18/24 Single Vaccine 20 Eligibility Eligibility Date Funding Source Not VF Eligible 12/18/24 Private Results Reviewed Results Reviewed: Laboratory Last Values Hgb A1c (Clinic) 6.6 % (4.0-6.0) H 12/18/24 08:29 Coding Level of Care Code Est Pt Level 4 (17071) Est Pt Prev Care 40-64y(95809) Diagnoses Normal physical examination, routine Z00.00 Hyperlipidemia E78.5 Type 2 diabetes mellitus E11.9 Essential hypertension I10 Anxiety with depression F41.8 Smoking greater than 20 pack years F17.210 Sleep disturbance G47.9 Snoring R06.83 Additional Codes YOLANDA-7 Assessment Billing - YOLANDA-7 Assessment Tool: YOLANDA-7 Assessment 55052 ([id number]) PHQ-9 - 13130 - PHQ-9 Billing: Yes ([id number]) Assessment & Plan Assessment & Plan (1) Normal physical examination, routine: Code(s): Z00.00 - Encounter for general adult medical examination without abnormal findings Category: Medical Plan: No significant functional limitation noted. Continue current treatment regimen. Healthy diet and routine exercise encouraged. Perform lab work and follow-up for telehealth visit for hyperlipidemia in 2 months. Return sooner with symptoms or concerns. Verbalized understanding and agreed with the plan. (2) Hyperlipidemia: Code(s): E78.5 - Hyperlipidemia, unspecified Category: Medical Plan: Recent triglyceride level is elevated, 160, total cholesterol and HDL levels are normal. LDL is slightly elevated, 82, goal is less than 70. Fenofibrate ordered to target triglycerides. Continue to take atorvastatin as prescribed. Advised to limit foods high in saturated fat and avoid foods high in trans fat. Routine exercise encouraged. Fast for 10-12 hours, may drink water, and perform lipid panel blood work a few days before next visit. Follow-up for telehealth visit in 2 months. Verbalized understanding and agreed with the plan. (3) Type 2 diabetes mellitus: Code(s): E11.9 - Type 2 diabetes mellitus without complications Category: Medical Plan: A1c today 6.6%, within goal of less than 7.0%. Previous A1c was 6.2%. Continue current treatment regimen. ADA diet and routine exercise encouraged. Will recheck A1c in 3-6 months. Her last eye exam was 2 years ago. Referred to Ophthalmology for diabetic retinal exam. She has never been followed by Podiatry. Referred to Podiatry for diabetic foot exam. Verbalized understanding and agreed with the plan. (4) Essential hypertension: Code(s): I10 - Essential (primary) hypertension Category: Medical Plan: Blood pressure is 126/63, within goal of less than 130/80. Continue current treatment regimen. Low-sodium diet encouraged. Will continue to monitor. Verbalized understanding and agreed with the plan. (5) Anxiety with depression: Code(s): F41.8 - Other specified anxiety disorders Category: Medical Plan: Reports controlled anxiety and depressive symptoms. Continue to take Wellbutrin as prescribed. Routine exercise encouraged. Follow-up with worsening or new symptoms. Verbalized understanding and agreed with the plan. (6) Smoking greater than 20 pack years: Code(s): F17.210 - Nicotine dependence, cigarettes, uncomplicated Category: Social Hx Plan: She smokes a pack of cigarettes daily and has been smoking for the past 30 years. Instructed on the health risks and complications of smoking and cessation encouraged. Wellbutrin increased to 150 mg twice daily to target nicotine dependence; advised to take as prescribed. Follow-up as needed. Verbalized understanding and agreed with the plan. (7) Sleep disturbance: Code(s): G47.9 - Sleep disorder, unspecified Category: Medical Plan: Reports difficulty maintaining sleep. She sleeps an average of 4 hours. She snores. Instructed on sleep hygiene. Referred to [facility] [place] sleep medicine for sleep study. Follow-up as needed. Verbalized understanding and agreed with plan. (8) Snoring: Code(s): R06.83 - Snoring Category: Medical Plan: Plan as above. Orders: Orders UA CC w/rflx Micro + Cult Today E11.9 - Type 2 diabetes mellitus without complications Lipid Panel 2 Months E78.5 - Hyperlipidemia, unspecified TDaP Immunization Today Z23 - Encounter for immunization AMB Hemoglobin A1c Today Z13.9 - Encounter for screening, unspecified Influenza [id number] Immunization Today Z23 - Encounter for immunization Microalbumin, Random (w Creat) Today E11.9 - Type 2 diabetes mellitus without complications Referrals Ophthalmology Referral E11.9 - Type 2 diabetes mellitus without complications Sleep Medicine Referral G47.9 - Sleep disorder, unspecified, R06.83 - Snoring Podiatry Referral E11.9 - Type 2 diabetes mellitus without complications Medications: New fenofibrate 54 mg PO DAILY 30 tabs 3RF 30 days Changed From bupropion HCl SR (Wellbutrin SR) 150 mg PO QAM 90 days 90 tabs 0RF To bupropion HCl SR (Wellbutrin SR) 150 mg PO BID 180 tabs 1RF 90 days
[2024-12-18 08:24] VITALS: BP 126/63; PULSE 80; RESP 16; TEMP 36.6; O2SAT 98; BMI 36.0
== END 2024-12-18 08:53 | disposition home or self-care (01) ==
LOC: HO.HMCFM 07:57
PROVIDERS: PCP Nurse Practitioner Family; Visit Provider Nurse Practitioner Family
DX: Z00.00 Encounter for general adult medical examination without abnormal findings (principal); E78.5 Hyperlipidemia, unspecified; E11.69 Type 2 diabetes mellitus with other specified complication; I10 Essential (primary) hypertension; F41.8 Other specified anxiety disorders; F17.210 Nicotine dependence, cigarettes, uncomplicated; G47.9 Sleep disorder, unspecified; R06.83 Snoring; Z23 Encounter for immunization

== ENCOUNTER → 2024-12-18 07:56 | Outpatient (BNVA) | payer OTHER, SELFPAY | PROVIDERS: PCP Nurse Practitioner Family; Visit Provider Nurse Practitioner Family | DX: Z00.00 Encounter for general adult medical examination without abnormal findings (principal); E78.5 Hyperlipidemia, unspecified; E11.9 Type 2 diabetes mellitus without complications; I10 Essential (primary) hypertension; F41.8 Other specified anxiety disorders; F17.210 Nicotine dependence, cigarettes, uncomplicated; R06.83 Snoring | CPT/HCPCS: 83036; 90471; 90472; 90656; 90715; 96127; 99212; 99396 ==

== ENCOUNTER 2024-12-27 13:27 | Outpatient (AMB) | payer OTHER, SELFPAY ==
--- NOTE | 2024-12-27 13:31 | A.OFFVIS_ITS ---
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 Reports difficulty maintaining sleep. She sleeps an average of 4 hours. She snores, Patient witness apnea/gasping. Goes to bed around 12-1AM wakes up at 7am. melisa up 2-3 times per night. No migraines. No history of sleep studies. Accompanied by: Self / Same As Patient Allergies codeine Allergy (Mild, Verified 12/27/24 13:35) Agitated HPI Comments Details: 54 year old female referred to us for an evaluation of sleep apnea, by her PCP, Dr. Wilder. She wakes up gasping for air and snoring, trying to get air in several times a night. She denies morning headaches, bruxism and clenching of the jaw. She goes to bed at midnight and wakes up at 7am, with one bathroom break. She is a current smoker of 1 pk cigarettes daily. She has T2DM and it is well managed. She says she has a hard time recalling words when speaking, however can remember everything. She has anxiety and palpitations due stress managed with BB with 12.5, She is on 150mg po Buproprion. She is chronically fatigued and can fall asleep easily. She has a stable diet, however has a difficult time swallowing solids and liquids, as if her adenoids touching lower aspect of soft pallete. [facility] Medical History Bronchitis Elevated cholesterol Anxiety with depression Pre-diabetes Gallbladder anomaly Skin cancer (melanoma) Eczema Surgical History History of dental surgery Hx of colonoscopy Hx of dilation and curettage Hx of cholecystectomy Hx of section H/O hand surgery Family History Father Heart disease Hypertension Hyperlipemia No family history of mental disorder Maternal Grandmother No family history of mental disorder Pancreatic cancer Social History Household Members: Spouse Housing: House Alcohol intake: current Alcohol intake frequency: does not drink Patient Tobacco Use Status: Current everyday Tobacco user Tobacco use type: Cigarette Cigarette Packs Per Day: 1 Years Smoked: 30 e-Cigarette/Vaping Use: Never Used Second Hand Smoke Exposure: No service: No 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 Sexual orientation: Straight/Heterosexual Gender identity: Female Cognitive needs: No Hearing needs: No Vision needs: No Physical Exam Vital Signs: Last Vital Signs Pulse 85 12/27/24 13:33 BP 130/68 12/27/24 13:33 Pulse Ox 98 12/27/24 13:33 Oxygen Delivery Method Room Air 12/27/24 13:33 BMI result Body Mass Index 36.8 Const General: cooperative, comfortable and no acute distress Nutritional Appearance: average body habitus and overweight Orientation/consciousness: patient oriented x3 HEENT Face and sinus: Yes face symmetric Teeth and gingiva: other (mallampti score 4) Eyes Pupils: Equal, round and reactive pupils present Neck Neck: Yes full ROM Resp Effort & Inspection: normal respiratory effort and able to speak in complete sentences Neuro General: patient oriented x3 and moves all extremities Cranial nerves: Yes CN's II-XII intact bilaterally, Yes Equal, round and reactive pupils present, Yes Normal accommodation reflex present, Yes Nystagmus not present, Yes Normal facial strength present, Yes Midline tongue present, Yes Ability to bilaterally rotate head present and Yes Ability to bilaterally elevate shoulders present Cognition (Neuro): normal cognition Gait exam (Neuro): Normal gait present Motor exam (neuro): 5/5 motor strength present throughout and Normal motor muscle tone present throughout Psych Appearance: grossly normal Thought process: Normal thought process present Thought content: Normal thought content present Assessment & Plan Assessment & Plan (1) Excessive daytime sleepiness: Code(s): G47.19 - Other hypersomnia Category: Medical (2) Sleep disturbance: Code(s): G47.9 - Sleep disorder, unspecified Category: Medical (3) Snoring: Code(s): R06.83 - Snoring Category: Medical Plan HST r/o GLADYS Labs r/o deficiencies which lead to fatigue, anemia, mood irritability RLS will monitor Orders: Orders Ferritin Today G47.19 - Other hypersomnia, G47.9 - Sleep disorder, unspecified, R06.83 - Snoring Homocysteine Today G47.19 - Other hypersomnia, G47.9 - Sleep disorder, unspecified, R06.83 - Snoring, R53.83 - Other fatigue Vitamin B6 Today G47.19 - Other hypersomnia, G47.9 - Sleep disorder, unspecified, R06.83 - Snoring Vitamin B12 and Folate Today G47.19 - Other hypersomnia, G47.9 - Sleep disorder, unspecified, R06.83 - Snoring Vitamin B1 Today G47.19 - Other hypersomnia, G47.9 - Sleep disorder, unspecified, R06.83 - Snoring Methylmalonic Acid Today G47.19 - Other hypersomnia, G47.9 - Sleep disorder, unspecified, R06.83 - Snoring, R53.83 - Other fatigue Vitamin D 25-OH Total Today G47.19 - Other hypersomnia, G47.9 - Sleep disorder, unspecified, R06.83 - Snoring RT home sleep study Today G47.19 - Other hypersomnia Patient Instructions: Sleep Hygiene provided: set a scheduled bedtime and wake time to help regulate the circadian rhythm and balance the release of pituitary hormones. Sleep in a dark room, temperatures below 68 degrees, and no devices n bed. Limit caffe inated products 6 hours prior to bed, and limit fluids 2-4 hours prior to bed. Gentle night yoga, diffusing essential oils, and playing soft music can be relaxing. Coding Level of Care Code New Pt Level 4 (71457) Diagnoses Excessive daytime sleepiness G47.19 Sleep disturbance G47.9 Snoring R06.83 Sleep Questionnaire Difficulty falling asleep: No Difficulty staying asleep?: Yes Number of arousals: 3+ Snoring: Yes Witnessed apneas: Yes Gasping arousals: Yes Nocturia: No GERD: No Vivid dreams: Yes Acting out dreams: No Abnormal behavior in sleep: No Abnormal movements in sleep: No Morning headaches: No Excessive daytime sleepiness: Yes Daytime naps: No Restless legs: No Hallucinations: No Sleep paralysis: No Drop attacks: No Sleep Study: No CPAP: No
[2024-12-27 13:33] VITALS: BP 130/68; PULSE 85; O2SAT 98; BMI 36.8
== END 2024-12-27 14:07 | disposition home or self-care (01) ==
LOC: HO.HSMC 13:28
PROVIDERS: PCP Nurse Practitioner Family; Visit Provider Physician Assistant Medical
DX: G47.19 Other hypersomnia (principal); G47.9 Sleep disorder, unspecified; R06.83 Snoring
CPT/HCPCS: 99204

== ENCOUNTER → 2024-12-27 13:27 | Outpatient (BNVA) | payer OTHER, SELFPAY | PROVIDERS: PCP Nurse Practitioner Family; Visit Provider Physician Assistant Medical | DX: G47.19 Other hypersomnia (principal); G47.9 Sleep disorder, unspecified; R06.83 Snoring | CPT/HCPCS: 99202 ==

== ENCOUNTER 2025-02-15 07:56 | Outpatient (REF) | payer OTHER, SELFPAY ==
[2025-02-15 11:37] LABS: Appearance Urine Clear; Glucose Urine UA Negative (Negative); PH 5.5 (5.0-9.0); Specific Gravity - Urine 1.015 (1.005-1.025); UMIC TRIGGER UACC YES
[2025-02-15 11:41] LABS: UACC Culture Trigger YES
[2025-02-15 11:43] LABS: Cholesterol 146 mg/dL (<200); HDL Cholesterol 40 mg/dL (>40); Triglycerides 120 mg/dL (<150)
[2025-02-15 12:00] LABS: Microalbum/Creatinine Ratio Ur 13.9 ug/mg cr (<30)
== END 2025-02-15 07:57 | disposition home or self-care (01) ==
LOC: HO.WFDLDS 07:56
PROVIDERS: Visit Provider Nurse Practitioner Family
DX: E11.9 Type 2 diabetes mellitus without complications (principal); E78.5 Hyperlipidemia, unspecified
CPT/HCPCS: 36415; 80061; 81001; 82043; 82570; 87086

== ENCOUNTER 2025-02-19 14:03 | Outpatient (AMB) | payer OTHER, SELFPAY ==
--- NOTE | 2025-02-19 13:37 | MHC.PC.OV ---
Intake Visit Reasons: Tele 2 mos HLD Intake Note: patient here for 2 month Telehealth follow up on HLD Sample Maker Hand Required: No Is last menstrual period known: No Post menopausal: No Patient : No Allergies codeine Allergy (Mild, Verified 02/19/25 13:37) Agitated Tobacco use date assessed: 02/19/25 Dental Screening Dental Screen Date: 02/19/25 Did you have a dental visit in the last 12 months?: Yes Did you have a dental problem in the last 6 months where you did not have access to dental care?: No Was dental information given to patient?: Patient has dentist HPI HPI Comments History of Present Illness Details 54-year-old female presents for a telehealth visit for review of recent lab results. She states that she has been taking her medications as prescribed without adverse reactions. She admits to making healthy lifestyle changes. She requests weight referral to weight management. No acute symptoms at this time. [facility] Medical History Bronchitis Elevated cholesterol Anxiety with depression Pre-diabetes Gallbladder anomaly Skin cancer (melanoma) Eczema Surgical History History of dental surgery Hx of colonoscopy Hx of dilation and curettage Hx of cholecystectomy Hx of section H/O hand surgery Family History Father Heart disease Hypertension Hyperlipemia No family history of mental disorder Maternal Grandmother No family history of mental disorder Pancreatic cancer Social History Household Members: Spouse Housing: House Alcohol intake: current Alcohol intake frequency: does not drink Patient Tobacco Use Status: Current everyday Tobacco user Tobacco use type: Cigarette Cigarette Packs Per Day: 1 Years Smoked: 30 e-Cigarette/Vaping Use: Never Used Second Hand Smoke Exposure: No service: No 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 Sexual orientation: Straight/Heterosexual Gender identity: Female Cognitive needs: No Hearing needs: No Vision needs: No Questionnaire Thrive Questionnaire Date Thrive assessed: 04/05/24 I am a: Patient What is your living situation today?: I have a steady place to live Within the past 12 months, did the food you bought not last and you didn't have the money to get more?: I choose not to answer this question Within the past 12 months, did you worry whether your food would run out before you got money to buy more?: I choose not to answer this question Do you have trouble paying for medicines?: I choose not to answer this question Do you have trouble getting transportation to medical appointments?: I choose not to answer this question Do you have trouble paying your heating and electricity bill?: I choose not to answer this question Do you have trouble taking care of your child, family member or friend?: I choose not to answer this question Do you have trouble with day-to-day activities such as bathing, preparing meals, shopping, managing finances, etc.?: I choose not to answer this question Are you currently unemployed and looking for a job?: I choose not to answer this question Are you interested in more education?: I choose not to answer this question Please select the resources that you would like help with: None Currently or been in a relationship where the following occur: I choose not to answer THRIVE Score: 0 YOLANDA-7 AMB Questionnaire YOLANDA-7 Date YOLANDA - 7 assessed: 12/18/24 Source: Developed by Drs. Ponce Morejon, Lia Pathak, Lalito Vasquez and colleagues, with an educational yaritza from [employer]. Review of Systems Const Details: Denies chills, Denies fatigue, Denies fever(s), Denies headache(s) and Denies weakness Cardiac Denies chest pain, Denies claudication, Denies leg edema, Denies lightheadedness, Denies palpitations, Denies dyspnea, Denies dyspnea on exertion, Denies orthopnea and Denies other (Loss of consciousness) Resp Denies cough, Denies excessive phlegm production, Denies dyspnea, Denies dyspnea on exertion, Denies snoring and Denies wheezing Physical exam (Primary Care) Tobacco/Smoking Status: Tobacco use Status Tobacco use date assessed 02/19/25 02/19/25 13:38 Patient Tobacco Use Status Current everyday Tobacco 02/19/25 13:38 Tobacco use type Cigarette 02/19/25 13:38 e-Cigarette/Vaping Use Never Used 02/19/25 13:38 Thrive Assessment: Date of Thrive Assessment Date Thrive assessed 04/05/24 02/19/25 13:38 Currently or been in a relationship where the following occur: I choose not to answer Const Other: Patient is alert and oriented x4 Telehealth Telehealth Telehealth Platform: Telephone Location of provider rendering services: practice address Location of patient: address on file Patient Identification confirmed using: Name, : Yes Telehealth method: voice only Patient verbally consented to treatment: Yes Patient verbally consented to billing insurance company: Yes Patient informed of any privacy concerns related to visit: Yes Coding Level of Care Code Tele Est Pt Level 3 (77631) Diagnoses Hyperlipidemia E78.5 Obesity (BMI 30-39.9) E66.9 Time Spent (min) 15 Assessment & Plan Assessment & Plan (1) Hyperlipidemia: Code(s): E78.5 - Hyperlipidemia, unspecified Category: Medical Plan: Recent LDL level is 82, above goal of less than 70. HDL level is slightly low, 40. Triglycerides and total cholesterol levels are normal. Continue current treatment regimen. Advised to limit foods high in saturated fat and avoid foods high in trans fat. Routine exercise encouraged. Encouraged to perform fasting lipid panel blood work before next visit. Follow-up in 2 months for transfer of care with a new PCP within the practice. Return sooner with symptoms or concerns. Verbalized understanding and agreed with the plan. (2) Obesity (BMI 30-39.9): Code(s): E66.9 - Obesity, unspecified Category: Medical Plan: Referred to [facility] with management clinic. Orders: Orders Lipid Panel 2 Months E78.5 - Hyperlipidemia, unspecified Referrals Medical Weight Management Referral E66.9 - Obesity, unspecified
== END 2025-02-19 15:12 | disposition home or self-care (01) ==
LOC: HO.HMCFM 14:03
PROVIDERS: PCP Nurse Practitioner Family; Visit Provider Nurse Practitioner Family
DX: E78.5 Hyperlipidemia, unspecified (principal); E66.9 Obesity, unspecified; Z68.36 Body mass index [BMI] 36.0-36.9, adult

== ENCOUNTER 2025-02-28 09:13 | Day surgery (SDC) | payer OTHER, SELFPAY ==
--- NOTE | 2025-02-26 11:16 | HO.ANESPROP2 ---
Documented by User: Nancy Busch NP 02/27/25 12:01 HPI - Anesthesia Eval Consult details Narrative: 54 yr old female for colonoscopy CAD: pt with strong fam hx CAD which iniated cardiac work up; pt had/has no symptoms. -Had echo done in 2023 as reported from [facility] cardiology note: Normal LV function, EF 55-60%, early mild aortic stenosis with mild mitral calcification, upper limited of normal in aortic size in the ascending aorta, no pericardial effusion. -Coronary angiography CTA showed short segment hemodynamic significance in the proximal LAD and proximal RCA. -Nuclear stress test done 08/29/[address] segment deviations with exercise that accentuate into recovery. ST elevation is noted in aVR, left ventricular perfusion is abnormal. SDS score of 8. There is inferior wall ischemia. Stress EF 57%. Cardiac cath done at [facility] 10/18/24 showing -LMCA: minor luminal disease. There is neg remodeling in the distal segment with mild plaque extending into the ostium of the LAD and LCx -LAD: There is mid segment 50% stenosis. There is a small coronary aneurysm at the stenosis. LCx: Mild luminal disease in the LCx. There is mild ostieal stenosis. RCA: Occluded in the midsegment. Grade 3 left to right collaterals noted. *medical management recommended +tobacco use PMFSH Active Problems Active Problems: All Active Problems Excessive daytime sleepiness (Acute) Snoring (Acute) Sleep disturbance (Acute) Smoking greater than 20 pack years (Acute) Low TSH level (Acute) Obesity (BMI 30-39.9) (Acute) Coronary atherosclerosis (Acute) Shingles (Acute) Hyperlipidemia (Acute) Aortic valve sclerosis (Acute) Abnormal echocardiogram (Acute) Abnormal EKG (Acute) Essential hypertension (Acute) Leukocytosis (Acute) Elevated blood pressure reading in office without diagnosis of hypertension (Acute) Microalbuminuria (Acute) Dyslipidemia (Acute) Murmur (Acute) Tubular adenoma of colon (Acute) Systolic murmur (Acute) Clicking of right hip (Acute) Smoking (Acute) Type 2 diabetes mellitus (Acute) Normal physical examination, routine (Acute) Hepatic lesion (Acute) Laboratory tests ordered as part of a complete physical exam (CPE) (Acute) Lesion of ovary (Acute) Uterine myoma (Acute) Pre-op examination (Acute) Enlarged uterus (Acute) Well woman exam (Acute) Pre-diabetes (Acute) Vaccine counseling (Acute) Pap smear for cervical cancer screening (Acute) Colon cancer screening (Acute) Wheezing (Acute) Bronchitis (Acute) Anxiety with depression (Acute) Elevated fasting glucose (Acute) Hypercholesterolemia (Acute) Right wrist pain (Acute) Leukocytosis (Acute) BMI 33.0-33.9,adult (Acute) Elevated BP without diagnosis of hypertension (Acute) Screening for breast cancer (Acute) History of skin cancer (Acute) Normal physical exam (Acute) Past Medical History Medical History (Updated 02/28/25 @ 10:18 by Sara Hair RN) Snoring Murmur HTN (hypertension) Bronchitis Elevated cholesterol Anxiety with depression Pre-diabetes Gallbladder anomaly Skin cancer (melanoma) Eczema Family History Family History Father Heart disease Hypertension Hyperlipemia No family history of mental disorder Maternal Grandmother No family history of mental disorder Pancreatic cancer Family history of problems with anesthesia: No Surgical History Surgical History H/O cardiac catheterization History of dental surgery Hx of colonoscopy Hx of dilation and curettage Hx of cholecystectomy Hx of section H/O hand surgery History of Problems with Anesthesia: No Social History Social History Household Members: Spouse Housing: House Alcohol intake: current Alcohol intake frequency: does not drink Patient Tobacco Use Status: Current everyday Tobacco user Tobacco use type: Cigarette Cigarette Packs Per Day: 1 Cigarettes Per Day: 15 Years Smoked: 30 e-Cigarette/Vaping Use: Never Used Second Hand Smoke Exposure: No Use of substances other than those prescribed or required for medical reasons: No Are you DNR?: No Advance Directives: No Advance Directives Information Provided: Yes service: No 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 Sexual orientation: Straight/Heterosexual Gender identity: Female Cognitive needs: No Hearing needs: No Vision needs: No Meds Allergies Allergy/AdvReac Type Severity Reaction Status Date / Time codeine Allergy Mild Agitated Verified 02/28/25 10:18 Home Medications ?Medication ?Instructions ?Recorded ?Confirmed ?Last Taken ?Type aspirin 81 mg tablet,delayed 81 mg PO BEDTIME 04/28/24 02/28/25 02/26/25 History release fenofibrate 54 mg tablet 54 mg PO BEDTIME 02/28/25 02/28/25 Unknown History lisinopril 10 mg tablet 10 mg PO BEDTIME 02/28/25 02/28/25 Unknown History metformin 500 mg tablet 500 mg PO BEDTIME 02/28/25 02/28/25 Unknown History metoprolol succinate 25 mg 12.5 mg PO BEDTIME 02/28/25 02/28/25 Unknown History tablet,extended release 24 hr Assessment and Plan Final Anesthetic Review Family History of Problems with Anesthesia: No History of Problems with Anesthesia: No Documented by User: Nani Mensah MD 02/28/25 10:27 [facility] Past Medical History Medical History (Updated 02/28/25 @ 10:18 by Sara Hair RN) Snoring Murmur HTN (hypertension) Bronchitis Elevated cholesterol Anxiety with depression Pre-diabetes Gallbladder anomaly Skin cancer (melanoma) Eczema Family History Family History Father Heart disease Hypertension Hyperlipemia No family history of mental disorder Maternal Grandmother No family history of mental disorder Pancreatic cancer Surgical History Surgical History H/O cardiac catheterization History of dental surgery Hx of colonoscopy Hx of dilation and curettage Hx of cholecystectomy Hx of section H/O hand surgery Social History Social History Household Members: Spouse Housing: House Alcohol intake: current Alcohol intake frequency: does not drink Patient Tobacco Use Status: Current everyday Tobacco user Tobacco use type: Cigarette Cigarette Packs Per Day: 1 Cigarettes Per Day: 15 Years Smoked: 30 e-Cigarette/Vaping Use: Never Used Second Hand Smoke Exposure: No Use of substances other than those prescribed or required for medical reasons: No Are you DNR?: No Advance Directives: No Advance Directives Information Provided: Yes service: No 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 Sexual orientation: Straight/Heterosexual Gender identity: Female Cognitive needs: No Hearing needs: No Vision needs: No Meds Allergies Allergy/AdvReac Type Severity Reaction Status Date / Time codeine Allergy Mild Agitated Verified 02/28/25 10:18 Home Medications ?Medication ?Instructions ?Recorded ?Confirmed ?Last Taken ?Type aspirin 81 mg tablet,delayed 81 mg PO BEDTIME 04/28/24 02/28/25 02/26/25 History release fenofibrate 54 mg tablet 54 mg PO BEDTIME 02/28/25 02/28/25 Unknown History lisinopril 10 mg tablet 10 mg PO BEDTIME 02/28/25 02/28/25 Unknown History metformin 500 mg tablet 500 mg PO BEDTIME 02/28/25 02/28/25 Unknown History metoprolol succinate 25 mg 12.5 mg PO BEDTIME 02/28/25 02/28/25 Unknown History tablet,extended release 24 hr Exam Airway Mallampati Class: II (all implants permanent) TM Dist: >3cm Neck ROM: Full Heart: rrr Lungs: cta Assessment and Plan Assessment Anesthesia Assessment: Anesthesia Plan Discussed and Chart Reviewed Final Anesthetic Review NPO: Yes ASA Class: II Final Preanesthetic Review: No Changes in Pt Med Stat, Meds/Allgs Chart Reviewed and Consent Obtained/Reviewed Patient Risk: Low Procedure Risk: Low Anesthetic Plan Anesthetic Plan: MAC: Disposition: Standard PACU
[2025-02-28 10:12] VITALS: BMI 35.3
--- NOTE | 2025-02-28 10:29 | P.HPSUR_ITS ---
Pre-Procedural Eval Section A - 24 Hr Update-Section A only Date of Service: 02/28/25 Section B - Complete if H&P > 30 days Chief Complaint: Benign neoplasm of colon, unspecified Relevant Family History (Specify if Yes): No Relevant Social History: Tobacco Use Present Medications: see Short Stay Collaborative assessment Medical History: Significant History (Bronchitis Elevated cholesterol Anxiety with depression Pre-diabetes Gallbladder anomaly Skin cancer (melanoma) Eczema) History of Previous Operations: Relevant previous surgery/procedure and date(s) (History of dental surgery Hx of colonoscopy Hx of dilation and curettage Hx of cholecystectomy Hx of section H/O hand surgery) Allergies: Allergies Allergy/AdvReac Type Severity Reaction Status Date / Time codeine Allergy Mild Agitated Verified 02/28/25 10:18 Review of Systems Sugical H&P ROS: Negative: Constitution, Cardiovascular, Respiratory, Neurological, Psychiatric, Hem-Onc, Allergic/Immunologic, Gastrointestinal, Genitourinary, Musculoskeletal, Integumentary, Endocrine and Eyes/ Ears/Nose/Throat Exam Surgical H&P Exam: Normal: HEENT, Normal: Heart, Normal: Lungs, Normal: Extremities, Normal: Abdomen, Normal: Skin and Normal: Neurological Plan Diagnosis/Plan: Unchanged I have reviewed the history and physical and performed a pertinent physical examination on my patient. No changes have occurred unless specified. Time Spent With Patient Time: Total time managing care of this patient today ____ minutes.
[2025-02-28 10:38] VITALS: BP 142/75; PULSE 91; RESP 15; TEMP 35.9; O2SAT 95
[2025-02-28] MEDS: Lactated Ringers 1,000 ML 100 ML IVCONT (10:40)
[2025-02-28 10:49] LABS: Glucose, Whole Blood 172 mg/dL (60-115)
--- NOTE | 2025-02-28 11:14 | HO.OPN-COLON ---
Colonoscopy Operative Note Operative Note Date of Service: 02/28/25 Narrative: Operative Information Procedure Description: Colonoscopy Indication: screening Anesthesia: MAC COLONOSCOPY Instrument: Olympus variable stiffness pediatric scope 190L Colonoscopy Monitoring: Vital signs and clinical assessment, continuous EKG monitoring, Pulse oximetry, Carbon Dioxide monitoring and blood pressure monitoring were done throughout the procedure. Colon withdrawal time was 8 minutes. Procedure: The patient was placed in the left lateral decubitis position and pre-procedure medications were administered. After a digital rectal examination of the ano-rectum, the video colonoscope was inserted into the rectum and advanced through the colon to the cecum/TI. The colonoscope was slowly withdrawn in a retrograde panoramic fashion and the colon mucosa was carefully examined including a retroflexed view of the rectum. Findings and interventions are described below. Procedure Difficulty: moderate Findings: Terminal Ileum-not intubated Cecum:normal Ascending Colon: 3-4 mm sessile polyp removed with cold forceps, 10 mm sessile polyp removed with cold snare Transverse Colon -normal Descending Colon:normal Sigmoid Colon: moderate severe diverticulosis Rectum: Retroflexion with small internal hemorrhoids seen, grade I Anorectum - normal Intervention: cold forceps, cold snare Colon preparation: Sweetser Bowel Preparation Scale Right colon; 2 Transverse colon: 2 Left colon; 2 (0 = Unprepared colon segment with mucosa not seen due to solid stool that cannot be cleared. 1 = Portion of mucosa of the colon segment seen, but other areas of the colon segment not well seen due to staining, residual stool and/or opaque liquid. 2 = Minor amount of residual staining, small fragments of stool and/or opaque liquid, but mucosa of colon segment seen well. 3 = Entire mucosa of colon segment seen well with no residual staining, small fragments of stool or opaque liquid) Impression and Post Procedure Diagnosis: diverticulosis colon polyps x 2 internal hemorrhoids Plan: High fiber diet leaflet Avoid straining at stool, epsom salts and sitz bath, anusol supps or cream Repeat Colonoscopy in 3-4 years or earlier if clinically indicated Above findings were reviewed with the patient and relevant handouts were provided if indicated.
[2025-02-28 11:19] VITALS: BP 93/67; PULSE 88; RESP 13; TEMP 36.1; O2SAT 95
[2025-02-28 11:34] VITALS: BP 102/71; PULSE 87; RESP 16; TEMP 37; O2SAT 100
== END 2025-02-28 12:22 | disposition home or self-care (01) ==
PROVIDERS: PCP Nurse Practitioner Family; Visit Provider Internal Medicine Gastroenterology
PROC: 0DJD8ZZ Inspection of Lower Intestinal Tract, Via Natural or Artificial Opening Endoscopic (ICD-10-PCS; CPT 45378; principal; 2025-02-28 11:50)
DX: Z12.11 Encounter for screening for malignant neoplasm of colon (principal); Z86.0101 Personal history of adenomatous and serrated colon polyps; K57.30 Diverticulosis of large intestine without perforation or abscess without bleeding; K64.0 First degree hemorrhoids; D12.2 Benign neoplasm of ascending colon
CPT/HCPCS: 45385; 82947; 88305; J2003; J2704

== ENCOUNTER → 2025-02-28 09:13 | Outpatient (BNV) | payer OTHER, SELFPAY | PROVIDERS: PCP Nurse Practitioner Family; Visit Provider Internal Medicine Gastroenterology | DX: Z12.11 Encounter for screening for malignant neoplasm of colon (principal); K63.5 Polyp of colon; K57.30 Diverticulosis of large intestine without perforation or abscess without bleeding; K64.0 First degree hemorrhoids | CPT/HCPCS: 45385 ==